=== PATIENT | male | born 1960 | race African-American/Black ===

== ENCOUNTER 2017-03-09 17:14 | Emergency (ER) | payer MEDICAID, OTHER ==
[~2017-03-09] VITALS: Ht 180.3 cm; Wt 74.0 kg
[~2017-03-09 17:14] MED LIST: DEPA500T3 PO; LISI-519 PO; RISP1 PO
[2017-03-09 17:21] VITALS: BP 117/69; PULSE 83; RESP 17; TEMP 97.7; O2SAT 99
--- NOTE | 2017-03-09 17:25 | PD ---
HPI Chief Complaint: ba Time Seen by Provider: 17:24 Travel History International Travel<30 days: No Contact w/Intl Traveler<30days: No Traveled to known affect area: No History of Present Illness HPI 57-year-old male with history of schizoaffective disorder, presents to the emergency department for evaluation under a Guillen act. Patient states he has been hearing voices. They're telling him to hurt others. He states that he needs help. Does report cocaine use. Denies any acute medical needs. Has no other symptoms to report. PFSH Past Medical History Hx Anticoagulant Therapy: No Arthritis: Yes Bipolar Disorder: Yes Depression: Yes Heart Rhythm Problems: No Cardiac Catheterization: Yes Cardiovascular Problems: Yes (MA in 03) Chemotherapy: No Chest Pain: Yes Congestive Heart Failure: No Cerebrovascular Accident: No Diabetes: No Diminished Hearing: No Gastrointestinal Disorders: Yes Heparin Induced Thrombocytopen: Yes Hypertension: Yes Musculoskeletal: Yes (knee replacement) Neurologic: Yes Psychiatric: Yes Respiratory: No Immunizations Current: Yes Schizophrenia: Yes Past Surgical History Abdominal Surgery: Yes (HERNIA REPAIR) Coronary Artery Bypass Graft: No Social History Alcohol Use: Yes Tobacco Use: Yes (1/2PPD) Substance Use: No (CRACK COCAINE) Allergies-Medications (Allergen,Severity, Reaction): Coded Allergies: No Known Allergies (Verified , 03/09/17) Reported Meds & Prescriptions Reported Meds & Active Scripts Active Risperdal (Risperidone) 1 Mg Tab 1 Mg PO Q12HR Depakote ER (Divalproex Sodium) 500 Mg Ana María 500 Mg PO BID Lisinopril 5 Mg Tab 5 Mg PO DAILY Reported Depakote ER (Divalproex Sodium) 500 Mg Ana María 1,000 Mg PO HS Review of Systems Except as stated in HPI: all other systems reviewed are Neg Physical Exam Narrative GENERAL: Well-nourished male patient, in no acute distress SKIN: Focused skin assessment warm/dry. HEAD: Atraumatic. Normocephalic. EYES: Pupils equal and round. No scleral icterus. No injection or drainage. ENT: No nasal bleeding or discharge. Mucous membranes pink and moist. NECK: Trachea midline. No JVD. CARDIOVASCULAR: Regular rate and rhythm. No murmur appreciated. RESPIRATORY: No accessory muscle use. Clear to auscultation. Breath sounds equal bilaterally. GASTROINTESTINAL: Abdomen soft, non-tender, nondistended. Hepatic and splenic margins not palpable. MUSCULOSKELETAL: No obvious deformities. No clubbing. No cyanosis. No edema. NEUROLOGICAL: Awake and alert. No obvious cranial nerve deficits. Motor grossly within normal limits. Normal speech. PSYCHIATRIC: Bizarre affect Data Data Last Documented VS Vital Signs Date Time Temp Pulse Resp B/P Pulse Ox O2 Delivery O2 Flow Rate FiO2 03/09/17 17:25 78 17 03/09/17 17:21 97.7 117/69 99 Orders Complete Blood Count With Diff (03/09/17 17:48) Basic Metabolic Panel (Bmp) (03/09/17 17:48) Psych Screen (03/09/17 17:48) Drug Screen, Random Urine (03/09/17 17:48) Alcohol (Ethanol) (03/09/17 17:48) Labs Laboratory Tests Test 03/09/17 17:55 White Blood Count 4.6 TH/MM3 Red Blood Count 4.49 MIL/MM3 Hemoglobin 13.5 GM/DL Hematocrit 41.1 % Mean Corpuscular Volume 91.6 FL Mean Corpuscular Hemoglobin 30.0 PG Mean Corpuscular Hemoglobin 32.8 % Concent Red Cell Distribution Width 13.9 % Platelet Count 199 TH/MM3 Mean Platelet Volume 7.5 FL Neutrophils (%) (Auto) 56.3 % Lymphocytes (%) (Auto) 35.9 % Monocytes (%) (Auto) 6.3 % Eosinophils (%) (Auto) 0.7 % Basophils (%) (Auto) 0.8 % Neutrophils # (Auto) 2.6 TH/MM3 Lymphocytes # (Auto) 1.7 TH/MM3 Monocytes # (Auto) 0.3 TH/MM3 Eosinophils # (Auto) 0.0 TH/MM3 Basophils # (Auto) 0.0 TH/MM3 CBC Comment DIFF FINAL Differential Comment Sodium Level 139 MEQ/L Potassium Level 4.4 MEQ/L Chloride Level 108 MEQ/L Carbon Dioxide Level 23.2 MEQ/L Anion Gap 8 MEQ/L Blood Urea Nitrogen 11 MG/DL Creatinine 1.02 MG/DL Estimat Glomerular Filtration 91 ML/MIN Rate Random Glucose 80 MG/DL Calcium Level 9.0 MG/DL Ethyl Alcohol Level 98 MG/DL MDM Medical Decision Making Medical Screen Exam Complete: Yes Emergency Medical Condition: Yes Medical Record Reviewed: Yes Differential Diagnosis Mood disorder versus personality disorder versus substance abuse versus adjustment reaction disorder Narrative Course 57-year-old male presents to the emergency department under Guillen act for psychiatric evaluation. Patient appears without distress. CBC and BMP are without acute concern. EtOH is 98. Patient is medically cleared to undergo psychiatric screening for further evaluation and disposition. Mental health screening discussed with the patient. Psychiatric screen ordered. Diagnosis Primary Impression: Schizoaffective disorder, bipolar type Additional Impression: Drug-induced mood disorder Condition: Stable Vera Edgar Mar 09, 2017 17:24
[2017-03-09 18:05] LABS: AUTOMATED NEUTROPHIL # 2.6 TH/MM3 (1.8-7.7); BASOPHIL % 0.8 % (0.0-2.0); EOSINOPHIL % 0.7 % (0.0-4.0); HEMATOCRIT 41.1 % (39.0-51.0); LYMPH % 35.9 % (9.0-44.0); LYMPHOCYTE # 1.7 TH/MM3 (1.0-4.8); MEAN CELL VOLUME 91.6 FL (80.0-100.0); MEAN CORPUSCULAR HGB CONC 32.8 % (32.0-36.0); MONO % 6.3 % (0.0-8.0); NEUT % 56.3 % (16.0-70.0); PLATELET COUNT 199 TH/MM3 (150-450); RED BLOOD COUNT 4.49 MIL/MM3 (4.50-5.90); RED CELL DISTRIBUTION WIDTH 13.9 % (11.6-17.2); WHITE BLOOD COUNT 4.6 TH/MM3 (4.0-11.0)
[2017-03-09 18:17] LABS: HEMO FLAGS DIFF FINAL
[2017-03-09 18:23] LABS: BICARBONATE 23.2 MEQ/L (21.0-32.0); POTASSIUM 4.4 MEQ/L (3.5-5.1)
[2017-03-09 21:37] VITALS: BP 175/75; PULSE 85; RESP 20; O2SAT 98
[2017-03-10 01:43] LABS: AMPHETAMINE, URINE NEG (NEG); BARBITURATES, URINE NEG (NEG); COCAINE, URINE POS (NEG)
[2017-03-10 02:06] VITALS: BP 123/60; PULSE 61; RESP 19; O2SAT 99
[2017-03-10 06:18] VITALS: BP 123/69; PULSE 65; RESP 18; O2SAT 98
--- NOTE | 2017-03-10 10:39 | PD ---
History of Present Illness Chief Complaint: Psychiatric Symptoms Time Seen by Provider: 10:30 Travel History International Travel<30 Days: No Contact w/Intl Traveler<30days: No Known affected area: No Legal Status Legal Status: Guillen Act Guillen Act Signed By: [employer] Guillen Act Comment: 2016 @ 1608 History of Present Illness: History of Present Illness 57-year-old male with history of schizoaffective disorder as well as substance use disorder who presents to the emergency department for psychiatric evaluation under a Guillen act initiated by OLIVIA. The report alleges that he reported hearing voices telling him to hurt people that were hurting him as well as telling him to smoke crack and drink alcoholic beverages. The patient requested to go to [facility]. He was monitored in main ed and in J pod. he presented no behavioral concerns and no suicidality. EMR reviewed. His last contact with [facility] psychiatry was in Aug 2016. he has had at least 8 life time hospitalizations. Current toxicology is positive for cocaine and cannabinoids. BAL 98. Patient is seen . He is alert and oriented, calm and cooperative. He states " I am good. No voices". He acknowledges that he was smoking crack and that the voices came after he smoked. At this time he is denying any suicidal or homicidal ideation, no hallucinations and no luciana. He is requesting to be discharged. He tells me that he was last seen in [facility] one year ago and that he stopped the medication because " they were not working that well". PFSH Past Medical History Hx Anticoagulant Therapy: No Arthritis: Yes Bipolar Disorder: Yes Depression: Yes Heart Rhythm Problems: No Cardiac Catheterization: Yes Cardiovascular Problems: Yes Chemotherapy: No Chest Pain: Yes Congestive Heart Failure: No Cerebrovascular Accident: No Diabetes: No Diminished Hearing: No Gastrointestinal Disorders: Yes Heparin Induced Thrombocytopen: Yes Hypertension: Yes Musculoskeletal: Yes (knee replacement) Neurologic: Yes Psychiatric: Yes Respiratory: No Immunizations Current: Yes Schizophrenia: Yes Tetanus Vaccination: < 5 Years Influenza Vaccination: Yes Past Surgical History Abdominal Surgery: Yes (HERNIA REPAIR) Coronary Artery Bypass Graft: No Psychiatric History Psychiatric History Hx Psychiatric Treatment: schizoaffective disorder, bipolar type History of Inpatient Treatment: Yes Guns or firearms in home: No Social History Single male. Lives with his mother. Unemployed. Hx Alcohol Use: Yes (beers) Hx Tobacco Use: Yes (1/2PPD) Hx Substance Use: No (CRACK COCAINE) Substance Use Type: Alcohol, Crack, Marijuana Other Substances Used: No use in about 1 week. Hx of Substance Use Treatment: No Family Psychiatric History None reported. Allergies-Medications (Allergen,Severity, Reaction): Coded Allergies: No Known Allergies (Verified , 03/09/17) Reported Meds & Prescriptions Reported Meds & Active Scripts Active Risperdal (Risperidone) 1 Mg Tab 1 Mg PO Q12HR Depakote ER (Divalproex Sodium) 500 Mg Ana María 500 Mg PO BID Lisinopril 5 Mg Tab 5 Mg PO DAILY Reported Depakote ER (Divalproex Sodium) 500 Mg Ana María 1,000 Mg PO HS Review of Systems Except as stated in HPI: all other systems reviewed are Neg Exam Alert: Yes [place]: Person Mood: Calm Affect: Appropriate Speech: Clear, Logical Eye Contact: Normal Memory Intact: Comment (no impairmetn) Hallucinations: Other (denies any at present) Delusions: No Suicidal: Ideation (negative) Homicidal: Ideation (neagtive) Insight/Judgement Poor. Not impaired. MDM Medical Decision Making Medical Record Reviewed: Yes Assessment/Plan 57 year old male with history of schizoaffective disorder as well as substance use disorder who called the police to report increase in hallucinations telling him to hurt people. This in context of acute intoxication w crack cocaine, cannabinoids as well as alcohol. At [facility] time he is clinically sober and denies any hallucinations. No suicidal ideation. No homicidal ideation. He is requesting discharge and clearly does not meet criteria for BA. He is advised to follow up with [facility] as outpatient as well to abstain from substances. Orders Complete Blood Count With Diff (03/09/17 17:48) Basic Metabolic Panel (Bmp) (03/09/17 17:48) Psych Screen (03/09/17 17:48) Drug Screen, Random Urine (03/09/17 17:48) Alcohol (Ethanol) (03/09/17 17:48) Diet Regular Basic (03/10/17 Breakfast) Diet Regular Basic (03/10/17 Lunch) Results Vital Signs Date Time Temp Pulse Resp B/P Pulse Ox O2 Delivery O2 Flow Rate FiO2 03/10/17 06:18 65 18 123/69 98 Room Air 03/10/17 02:06 61 19 123/60 99 Room Air 03/09/17 21:37 85 20 175/75 98 Room Air 03/09/17 17:25 78 17 03/09/17 17:21 97.7 83 17 117/69 99 Laboratory Tests Test 03/09/17 03/10/17 17:55 01:20 White Blood Count 4.6 Red Blood Count 4.49 Hemoglobin 13.5 Hematocrit 41.1 Mean Corpuscular Volume 91.6 Mean Corpuscular Hemoglobin 30.0 Mean Corpuscular Hemoglobin 32.8 Concent Red Cell Distribution Width 13.9 Platelet Count 199 Mean Platelet Volume 7.5 Neutrophils (%) (Auto) 56.3 Lymphocytes (%) (Auto) 35.9 Monocytes (%) (Auto) 6.3 Eosinophils (%) (Auto) 0.7 Basophils (%) (Auto) 0.8 Neutrophils # (Auto) 2.6 Lymphocytes # (Auto) 1.7 Monocytes # (Auto) 0.3 Eosinophils # (Auto) 0.0 Basophils # (Auto) 0.0 CBC Comment DIFF FINAL Differential Comment Sodium Level 139 Potassium Level 4.4 Chloride Level 108 Carbon Dioxide Level 23.2 Anion Gap 8 Blood Urea Nitrogen 11 Creatinine 1.02 Estimat Glomerular Filtration 91 Rate Random Glucose 80 Calcium Level 9.0 Ethyl Alcohol Level 98 Urine Opiates Screen NEG Urine Barbiturates Screen NEG Urine Amphetamines Screen NEG Urine Benzodiazepines Screen NEG Urine Cocaine Screen POS Urine Cannabinoids Screen POS Diagnosis Primary Impression: Drug-induced psychotic disorder with hallucinations Additional Impression: Schizoaffective disorder, bipolar type Psychiatrically Cleared: Yes Disposition: 01 DISCHARGE HOME Condition: Stable Problem Qualifiers Yuko Heller [facility] Mar 10, 2017 10:39
== END 2017-03-10 10:54 | disposition home or self-care (01) ==
LOC: NEPE 17:14 → NEPJ 03-10 10:54
DX: F19.959 Other psychoactive substance use, unspecified with psychoactive substance-induced psychotic disorder, unspecified (principal); R44.0 Auditory hallucinations; F25.0 Schizoaffective disorder, bipolar type; F14.14 Cocaine abuse with cocaine-induced mood disorder; F11.14 Opioid abuse with opioid-induced mood disorder; I10 Essential (primary) hypertension; Z96.659 Presence of unspecified artificial knee joint; F17.210 Nicotine dependence, cigarettes, uncomplicated; F19.94 Other psychoactive substance use, unspecified with psychoactive substance-induced mood disorder
CPT/HCPCS: 80048; 80307; 85025; 99285

== ENCOUNTER 2017-04-22 02:17 | Emergency (ER) | payer MEDICAID, OTHER ==
[~2017-04-22] VITALS: Ht 180.3 cm; Wt 78.0 kg
[2017-04-22 02:27] VITALS: BP 105/59; PULSE 100; RESP 16; TEMP 98.9; O2SAT 96
--- NOTE | 2017-04-22 02:33 | PD ---
HPI Chief Complaint: Psychiatric Symptoms Time Seen by Provider: 02:30 Travel History International Travel<30 days: No Contact w/Intl Traveler<30days: No Traveled to known affect area: No History of Present Illness HPI Patient comes emergency requesting psychiatric evaluation. Patient states he's been out of his Risperdal for approximately 2 weeks and he is hearing voices. Patient states his when he is on his medication he feels fine however he has not been able get a refill on it. Patient denies any homicidal or suicidal ideations. Patient states he is uncertain of all medications he is on however his record show he supposed be on Depakote. When asked patient about this he is uncertain if he is taking it or not. Patient states when he gets feeling this way he just gets generalized pain all over. Denies any chest pain, shortness breath, fevers, abdominal pain, nausea and vomiting, abdominal, loss change in bowel or bladder, or headaches. Patient denies anything making it better or worse. PFSH Past Medical History Hx Anticoagulant Therapy: No Arthritis: Yes Bipolar Disorder: Yes Depression: Yes Heart Rhythm Problems: No Cardiac Catheterization: Yes Cardiovascular Problems: Yes Chemotherapy: No Chest Pain: Yes Congestive Heart Failure: No Cerebrovascular Accident: No Diabetes: No Diminished Hearing: No Gastrointestinal Disorders: Yes Heparin Induced Thrombocytopen: Yes Hypertension: Yes Musculoskeletal: Yes (knee replacement) Neurologic: Yes Psychiatric: Yes Respiratory: No Immunizations Current: Yes Schizophrenia: Yes Past Surgical History Abdominal Surgery: Yes (HERNIA REPAIR) Coronary Artery Bypass Graft: No Social History Alcohol Use: Yes (beers) Tobacco Use: Yes (1/2PPD) Substance Use: No (CRACK COCAINE) Allergies-Medications (Allergen,Severity, Reaction): Coded Allergies: No Known Allergies (Verified , 04/22/17) Reported Meds & Prescriptions Reported Meds & Active Scripts Active Risperdal (Risperidone) 1 Mg Tab 1 Mg PO Q12HR Depakote ER (Divalproex Sodium) 500 Mg Ana María 500 Mg PO BID Lisinopril 5 Mg Tab 5 Mg PO DAILY Reported Depakote ER (Divalproex Sodium) 500 Mg Ana María 1,000 Mg PO HS Review of Systems Except as stated in HPI: all other systems reviewed are Neg Physical Exam Narrative GENERAL: Well-developed, well nourished, in no acute distress, and non-ill appearing. SKIN: Focused skin assessment warm and dry. HEAD: Atraumatic. Normocephalic. EYES: Pupils equal and round. EOMI. No scleral icterus. No injection or drainage. ENT: No nasal bleeding or discharge. Mucous membranes pink and moist. NECK: Trachea midline. Supple. No nuclear rigidity. CARDIOVASCULAR: Regular rate and rhythm. No murmur appreciated. RESPIRATORY: No accessory muscle use. No respiratory distress. Clear to auscultation. Breath sounds equal bilaterally. MUSCULOSKELETAL: No obvious deformities. No clubbing. No cyanosis. No edema. Full range of motion. NEUROLOGICAL: Awake and alert. No obvious cranial nerve deficits. Motor grossly within normal limits. Normal speech. PSYCHIATRIC: Appropriate mood and affect; insight and judgment normal. Data Data Last Documented VS Vital Signs Date Time Temp Pulse Resp B/P Pulse Ox O2 Delivery O2 Flow Rate FiO2 04/22/17 02:27 98.9 100 16 105/59 96 Orders Complete Blood Count With Diff (04/22/17 02:31) Comprehensive Metabolic Panel (04/22/17 02:31) Valproic Acid (Depakene) (04/22/17 02:31) Psych Screen (04/22/17 02:31) Drug Screen, Random Urine (04/22/17 02:31) Alcohol (Ethanol) (04/22/17 02:31) Labs Laboratory Tests Test 04/22/17 02:37 White Blood Count 5.1 TH/MM3 Red Blood Count 4.14 MIL/MM3 Hemoglobin 13.0 GM/DL Hematocrit 37.6 % Mean Corpuscular Volume 90.9 FL Mean Corpuscular Hemoglobin 31.3 PG Mean Corpuscular Hemoglobin 34.4 % Concent Red Cell Distribution Width 13.6 % Platelet Count 200 TH/MM3 Mean Platelet Volume 7.3 FL Neutrophils (%) (Auto) 67.3 % Lymphocytes (%) (Auto) 23.1 % Monocytes (%) (Auto) 8.2 % Eosinophils (%) (Auto) 0.6 % Basophils (%) (Auto) 0.8 % Neutrophils # (Auto) 3.4 TH/MM3 Lymphocytes # (Auto) 1.2 TH/MM3 Monocytes # (Auto) 0.4 TH/MM3 Eosinophils # (Auto) 0.0 TH/MM3 Basophils # (Auto) 0.0 TH/MM3 CBC Comment DIFF FINAL Differential Comment Sodium Level 142 MEQ/L Potassium Level 4.1 MEQ/L Chloride Level 109 MEQ/L Carbon Dioxide Level 19.8 MEQ/L Anion Gap 13 MEQ/L Blood Urea Nitrogen 18 MG/DL Creatinine 1.50 MG/DL Estimat Glomerular Filtration 58 ML/MIN Rate Random Glucose 59 MG/DL Calcium Level 8.3 MG/DL Total Bilirubin 0.7 MG/DL Aspartate Amino Transf 38 U/L (AST/SGOT) Alanine Aminotransferase 38 U/L (ALT/SGPT) Alkaline Phosphatase 51 U/L Total Protein 7.1 GM/DL Albumin 3.7 GM/DL Valproic Acid (Depakene) Level 4 MCG/ML Ethyl Alcohol Level 127 MG/DL [facility] Medical Decision Making Medical Screen Exam Complete: Yes Emergency Medical Condition: Yes Differential Diagnosis Homicidal, suicidal, schizoaffective, alcohol intoxication, substance abuse, other Narrative Course Patient was seen and examined. Labs were obtained and reviewed with the exception of urine drug screen has not been collected yet. Patient medically cleared for further treatment and evaluation by psych. Final disposition per psych. Diagnosis Primary Impression: Alcohol intoxication Qualified Code: F10.920 - Alcohol intoxication, uncomplicated Additional Impression: Medical clearance for psychiatric admission Condition: Stable Dashawn Ruiz Apr 22, 2017 02:33
[2017-04-22 03:04] LABS: AUTOMATED NEUTROPHIL # 3.4 TH/MM3 (1.8-7.7); BASOPHIL % 0.8 % (0.0-2.0); EOSINOPHIL % 0.6 % (0.0-4.0); HEMATOCRIT 37.6 % (39.0-51.0); HEMO FLAGS DIFF FINAL; LYMPH % 23.1 % (9.0-44.0); LYMPHOCYTE # 1.2 TH/MM3 (1.0-4.8); MEAN CELL VOLUME 90.9 FL (80.0-100.0); MEAN CORPUSCULAR HEMOGLOBIN 31.3 PG (27.0-34.0); MEAN CORPUSCULAR HGB CONC 34.4 % (32.0-36.0); MONO % 8.2 % (0.0-8.0); NEUT % 67.3 % (16.0-70.0); PLATELET COUNT 200 TH/MM3 (150-450); RED BLOOD COUNT 4.14 MIL/MM3 (4.50-5.90); RED CELL DISTRIBUTION WIDTH 13.6 % (11.6-17.2); WHITE BLOOD COUNT 5.1 TH/MM3 (4.0-11.0)
[2017-04-22 03:23] LABS: ANION GAP 13 MEQ/L (5-15); AST (GOT) 38 U/L (15-37); BICARBONATE 19.8 MEQ/L (21.0-32.0); BLOOD UREA NITROGEN 18 MG/DL (7-18); CHLORIDE 109 MEQ/L (98-107); GLOMERULAR FILTRATION RATE 58 ML/MIN (>89); POTASSIUM 4.1 MEQ/L (3.5-5.1); SODIUM (NA) 142 MEQ/L (136-145)
[2017-04-22 03:26] LABS: ALKALINE PHOSPHATASE 51 U/L (45-117); ALT (GPT) 38 U/L (12-78); TOTAL BILIRUBIN ADULT 0.7 MG/DL (0.2-1.0)
[2017-04-22 07:50] VITALS: BP_SYST 11; BP_SYST 111; BP_DIAS 75; PULSE 79; RESP 20; O2SAT 99
--- NOTE | 2017-04-22 16:50 | PD ---
History of Present Illness Chief Complaint: Psychiatric Symptoms Time Seen by Provider: 16:30 Travel History International Travel<30 Days: No Contact w/Intl Traveler<30days: No Known affected area: No Legal Status Legal Status: Voluntary History of Present Illness: History of Present Illness HPI Patient is a 57 year old male with history of schizoaffective disorder as well as substance use disorder who presents to the Ed on a voluntary basis emergency requesting psychiatric evaluation. Patient reports that he has been out of his psychiatric medications " for a while" and that he began to hear voices. he then called the police to request that they bring him here to [facility]. he tells me that he stopped the medication because he was feeling well. He also uses crack which intensify the hallucinations. His BAl on presentation to ED was 127. No toxicology report is available but he admits to using crack cocaine EMR is reviewed. His last ed visit was in march 2017 in context of substance use as well as medication noncompliance. He was last psychiatrically hospitalized in 2016. The patient was seen with nurse Jeana. He is clinically sober. He is calm and cooperative. No evidence of TD. He denies hearing voices at present . Denies any suicidal or homicidal ideation. Denies any significant depressive or anxious symptom. he requests a prescription for Risperdal as he tells me that it helps him and he does not have any side effects from it. PFSH Past Medical History Medical History: Denies Significant Hx Hx Anticoagulant Therapy: No Arthritis: Yes Bipolar Disorder: Yes Depression: Yes Heart Rhythm Problems: No Cardiac Catheterization: Yes Cardiovascular Problems: Yes Chemotherapy: No Chest Pain: Yes Congestive Heart Failure: No Cerebrovascular Accident: No Diabetes: No Diminished Hearing: No Gastrointestinal Disorders: Yes Heparin Induced Thrombocytopen: Yes Hypertension: Yes Musculoskeletal: Yes (knee replacement) Neurologic: Yes Psychiatric: Yes Respiratory: No Immunizations Current: Yes Schizophrenia: Yes Past Surgical History Abdominal Surgery: Yes (HERNIA REPAIR) Coronary Artery Bypass Graft: No Psychiatric History Psychiatric History Hx Psychiatric Treatment: schizoaffective disorder, bipolar type At least 8 lifetime hospitalizations History of Inpatient Treatment: Yes Guns or firearms in home: No Social History Single male. Lives with family. On disability Hx Alcohol Use: Yes (beers) Hx Tobacco Use: Yes (1/2PPD) Hx Substance Use: Yes (CRACK COCAINE) Substance Use Type: Alcohol, Crack, Marijuana Other Substances Used: No use in about 1 week. Hx of Substance Use Treatment: No Family Psychiatric History negative Allergies-Medications (Allergen,Severity, Reaction): Coded Allergies: No Known Allergies (Verified , 04/22/17) Reported Meds & Prescriptions Reported Meds & Active Scripts Active Risperdal (Risperidone) 1 Mg Tab 1 Mg PO Q12HR Depakote ER (Divalproex Sodium) 500 Mg Ana María 500 Mg PO BID Lisinopril 5 Mg Tab 5 Mg PO DAILY Reported Depakote ER (Divalproex Sodium) 500 Mg Ana María 1,000 Mg PO HS Review of Systems Except as stated in HPI: all other systems reviewed are Neg Exam Alert: Yes [place]: Person (ox4) Mood: Calm Affect: Appropriate Speech: Clear, Logical Eye Contact: Normal Memory Intact: Comment (not impaired) Hallucinations: Other (hedeies at present) Delusions: No Suicidal: Ideation (negative) Homicidal: Ideation (negative) Insight/Judgement poor. not impaired. MDM Medical Decision Making Medical Record Reviewed: Yes Assessment/Plan 57 year old male with history of schizoaffective disorder as well as substance use disorder who presents on a voluntary basis requesting a medication refill. He has been using cocaine as well as alcohol. He denies daily use. patietn at this time is denying any hallucinations and does not meet criteria for BA. I will provide RX for Risperdal. Counseled on use of substances. Lift BA. Discharge to home with follow up with [facility]. Orders Complete Blood Count With Diff (04/22/17 02:31) Comprehensive Metabolic Panel (04/22/17 02:31) Valproic Acid (Depakene) (04/22/17 02:31) Psych Screen (04/22/17 02:31) Drug Screen, Random Urine (04/22/17 02:31) Alcohol (Ethanol) (04/22/17 02:31) Diet Regular Basic (04/22/17 Breakfast) Diet Regular Basic (04/22/17 Dinner) Results Vital Signs Date Time Temp Pulse Resp B/P Pulse Ox O2 Delivery O2 Flow Rate FiO2 04/22/17 07:50 79 20 111/75 99 Room Air 04/22/17 02:27 98.9 100 16 105/59 96 Laboratory Tests Test 04/22/17 02:37 White Blood Count 5.1 Red Blood Count 4.14 Hemoglobin 13.0 Hematocrit 37.6 Mean Corpuscular Volume 90.9 Mean Corpuscular Hemoglobin 31.3 Mean Corpuscular Hemoglobin 34.4 Concent Red Cell Distribution Width 13.6 Platelet Count 200 Mean Platelet Volume 7.3 Neutrophils (%) (Auto) 67.3 Lymphocytes (%) (Auto) 23.1 Monocytes (%) (Auto) 8.2 Eosinophils (%) (Auto) 0.6 Basophils (%) (Auto) 0.8 Neutrophils # (Auto) 3.4 Lymphocytes # (Auto) 1.2 Monocytes # (Auto) 0.4 Eosinophils # (Auto) 0.0 Basophils # (Auto) 0.0 CBC Comment DIFF FINAL Differential Comment Sodium Level 142 Potassium Level 4.1 Chloride Level 109 Carbon Dioxide Level 19.8 Anion Gap 13 Blood Urea Nitrogen 18 Creatinine 1.50 Estimat Glomerular Filtration 58 Rate Random Glucose 59 Calcium Level 8.3 Total Bilirubin 0.7 Aspartate Amino Transf 38 (AST/SGOT) Alanine Aminotransferase 38 (ALT/SGPT) Alkaline Phosphatase 51 Total Protein 7.1 Albumin 3.7 Valproic Acid (Depakene) Level 4 Ethyl Alcohol Level 127 Diagnosis Primary Impression: Alcohol intoxication Additional Impression: Schizoaffective disorder Psychiatrically Cleared: Yes Med/ Other Pt Specific Info: Prescription(s) given Prescriptions Risperidone 2 Mg Tab2 Mg PO HS #30 TAB Ref 0 Prov:Yuko Heller 04/22/17 Disposition: 01 DISCHARGE HOME Condition: Stable Problem Qualifiers Primary Impression: Alcohol intoxication Qualified Code: F10.920 - Alcohol intoxication, uncomplicated Additional Impression: Schizoaffective disorder Qualified Code: F25.0 - Schizoaffective disorder, bipolar type Yuko Heller Apr 22, 2017 16:50
[2017-04-22] MEDS ORDERED: RISP2TAB2 PO (16:52)
== END 2017-04-22 22:06 | disposition home or self-care (01) ==
LOC: NEPD 02:17 → NEPJ 22:06
DX: F10.920 Alcohol use, unspecified with intoxication, uncomplicated (principal); F25.0 Schizoaffective disorder, bipolar type; Y90.6 Blood alcohol level of 120-199 mg/100 ml; Z79.899 Other long term (current) drug therapy
CPT/HCPCS: 80053; 80164; 80307; 85025; 99284

== ENCOUNTER 2017-05-10 03:07 | Emergency (ER) | payer MEDICAID, OTHER ==
[~2017-05-10] VITALS: Ht 175.3 cm; Wt 80.0 kg
[~2017-05-10 03:07] MED LIST changes: +RISP2TAB2 PO
[2017-05-10 03:16] VITALS: BP 128/73; PULSE 102; RESP 16; TEMP 98.8; O2SAT 95
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
[2017-05-10 04:42] VITALS: BP 120/58; PULSE 84; RESP 20; TEMP 97.7; O2SAT 98
[2017-05-10 06:06] VITALS: BP 109/59; PULSE 83; RESP 20; TEMP 99.3; O2SAT 98
[2017-05-10 10:06] VITALS: BP 115/59; PULSE 68; RESP 18; O2SAT 100
[2017-05-10 13:26] LABS: AMPHETAMINE, URINE NEG (NEG); BARBITURATES, URINE NEG (NEG); COCAINE, URINE POS (NEG)
[2017-05-10 14:19] VITALS: BP 131/61; PULSE 75; RESP 18; O2SAT 97
--- NOTE | 2017-05-10 15:18 | PD ---
History of Present Illness Chief Complaint: Psychiatric Symptoms Time Seen by Provider: 15:00 Travel History International Travel<30 Days: No Contact w/Intl Traveler<30days: No Known affected area: No Legal Status Legal Status: Voluntary History of Present Illness: 57-year-old male with admitted multiyear history of drug and alcohol abuse. Furthermore admits to smoking crack cocaine recently. Has been treated at [facility] in the past. Describes hearing voices and states the Risperdal he has taken in the past is not working. However, at this time he is not expressing any suicidal or homicidal ideation, plan or intent. He demonstrates no significant clinical evidence of response to internal stimuli. He is asking for taxi transportation home. He does not wish to go to [facility] at this time for drug treatment. He is forward thinking and does not appear to this physician to be suffering from schizophrenia, schizoaffective disorder, bipolar disorder or any other major mental illness. On the other hand, he does have obvious drug problems and is being referred to [facility] for follow up. He knows and acknowledges what this entails. PFSH Past Medical History Hx Anticoagulant Therapy: No Arthritis: Yes Bipolar Disorder: Yes Depression: Yes Heart Rhythm Problems: No Cardiac Catheterization: Yes Cardiovascular Problems: Yes Chemotherapy: No Chest Pain: Yes Congestive Heart Failure: No Cerebrovascular Accident: No Diabetes: No Diminished Hearing: No Gastrointestinal Disorders: Yes Heparin Induced Thrombocytopen: Yes Hypertension: Yes Musculoskeletal: Yes (knee replacement) Neurologic: Yes Psychiatric: Yes Respiratory: No Immunizations Current: Yes Schizophrenia: Yes Tetanus Vaccination: < 5 Years Influenza Vaccination: Yes Past Surgical History Abdominal Surgery: Yes (HERNIA REPAIR) Coronary Artery Bypass Graft: No Psychiatric History Psychiatric History Hx Psychiatric Treatment: schizoaffective disorder, bipolar typeAt least 8 lifetime hospitalizations. This physician does not currently see any significant objective clinical evidence of schizoaffective disorder or other major mental illness. Conversely, there is recent use of crack cocaine. History of Inpatient Treatment: Yes Guns or firearms in home: No Social History Hx Alcohol Use: Yes (beers) Hx Tobacco Use: Yes (1/2PPD) Hx Substance Use: Yes (CRACK COCAINE) Substance Use Type: Alcohol, Crack, Marijuana Other Substances Used: No use in about 1 week. Hx of Substance Use Treatment: No Allergies-Medications (Allergen,Severity, Reaction): Coded Allergies: No Known Allergies (Verified , 05/10/17) Reported Meds & Prescriptions Reported Meds & Active Scripts Active Risperdal (Risperidone) 1 Mg Tab 1 Mg PO Q12HR Lisinopril 5 Mg Tab 5 Mg PO DAILY Review of Systems Except as stated in HPI: all other systems reviewed are Neg Exam Alert: Yes [place]: Person, Place, Date, Situation Mood: Calm Affect: Appropriate Speech: Clear Eye Contact: Normal Memory Intact: Immediate, Recent, Remote Insight/Judgement Adequate MDM Medical Decision Making Medical Record Reviewed: Yes Assessment/Plan 57-year-old male with a significant history of drug abuse, presenting voluntarily after smoking crack cocaine. When this physician explained the patient is being referred to [facility] for treatment of his drug abuse, he wants transportation home. When he discovers that we cannot provide transportation home, he initially stated he had no one to call for transportation but then asked to use the phone to call his mother. This information is being provided because the patient showed clear, logical and straight forward thinking as opposed to any evidence of responding to internal stimuli. He is being discharged with a referral to [facility] addresses paramount problem appears to be drug abuse. Orders Drug Screen, Random Urine (05/10/17 03:34) Alcohol (Ethanol) (05/10/17 03:34) Psych Screen (05/10/17 03:34) Diet Regular Basic (05/10/17 Breakfast) Diet Regular Basic (05/10/17 Lunch) Diet Regular Basic (05/10/17 Dinner) Results Vital Signs Date Time Temp Pulse Resp B/P Pulse Ox O2 Delivery O2 Flow Rate FiO2 05/10/17 14:19 75 18 131/61 97 Room Air 05/10/17 10:06 68 18 115/59 100 Room Air 05/10/17 06:06 99.3 83 20 109/59 98 05/10/17 04:42 97.7 84 20 120/58 98 05/10/17 03:16 98.8 102 16 128/73 95 Laboratory Tests Test 05/10/17 05/10/17 03:40 12:45 Ethyl Alcohol Level 72 Urine Opiates Screen NEG Urine Barbiturates Screen NEG Urine Amphetamines Screen NEG Urine Benzodiazepines Screen NEG Urine Cocaine Screen POS Urine Cannabinoids Screen POS Diagnosis Primary Impression: Adjustment disorder with mixed disturbance of emotions and conduct Additional Impression: Cocaine abuse Problem Qualifiers Magen Colón MD May 10, 2017 15:18
[2017-05-10 15:59] VITALS: BP 131/61; TEMP 97.3
== END 2017-05-10 16:02 | disposition home or self-care (01) ==
LOC: NEPD 03:07 → NEPJ 16:02
DX: F43.20 Adjustment disorder, unspecified (principal); F25.9 Schizoaffective disorder, unspecified; F14.10 Cocaine abuse, uncomplicated; F10.10 Alcohol abuse, uncomplicated; F17.290 Nicotine dependence, other tobacco product, uncomplicated
CPT/HCPCS: 80307; 99284

== ENCOUNTER 2017-06-05 01:16 | Emergency (ER) | payer MEDICAID ==
[~2017-06-05 01:16] MED LIST changes: -DEPA500T3 PO; -RISP2TAB2 PO
[2017-06-05 01:17] VITALS: BP 125/76; PULSE 122; RESP 16; TEMP 98; O2SAT 96
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
== END 2017-06-05 04:35 | disposition home or self-care (01) ==
LOC: NEPD 01:16
DX: S00.83XA Contusion of other part of head, initial encounter (principal); Y04.2XXA Assault by strike against or bumped into by another person, initial encounter
CPT/HCPCS: 70486; 99284

== ENCOUNTER 2017-06-25 00:44 | Emergency (ER) | payer MEDICAID, OTHER ==
[~2017-06-25] VITALS: Ht 180.3 cm; Wt 70.0 kg
--- NOTE | 2017-06-25 01:00 | PD ---
HPI Chief Complaint: BA Time Seen by Provider: 00:50 Travel History International Travel<30 days: No Contact w/Intl Traveler<30days: No Traveled to known affect area: No History of Present Illness HPI 46-year-old male with history of bipolar disorder and polysubstance abuse, presents to emergency department under Guillen act for psychiatric evaluation. Patient states that he has not been able to get a hold of his girlfriend and if he cannot get a hold of her, he is going to kill himself. He has no active plan. Reports cocaine, heroin, and alcohol use. Denies any acute medical needs at this time. PFSH Past Medical History Hx Anticoagulant Therapy: No Arthritis: Yes Bipolar Disorder: Yes Depression: Yes Heart Rhythm Problems: No Cardiac Catheterization: Yes Cardiovascular Problems: Yes Chemotherapy: No Chest Pain: Yes Congestive Heart Failure: No Cerebrovascular Accident: No Diabetes: No Diminished Hearing: No Gastrointestinal Disorders: Yes Heparin Induced Thrombocytopen: Yes Hypertension: Yes Musculoskeletal: Yes (knee replacement) Neurologic: Yes Psychiatric: Yes Respiratory: No Immunizations Current: Yes Schizophrenia: Yes Past Surgical History Abdominal Surgery: Yes (HERNIA REPAIR) Coronary Artery Bypass Graft: No Social History Alcohol Use: Yes (beers) Tobacco Use: Yes (1/2PPD) Substance Use: No (HX CRACK COCAINE) Allergies-Medications (Allergen,Severity, Reaction): Coded Allergies: No Known Allergies (Verified , 06/25/17) Reported Meds & Prescriptions Reported Meds & Active Scripts Active Risperdal (Risperidone) 1 Mg Tab 1 Mg PO Q12HR Review of Systems Except as stated in HPI: all other systems reviewed are Neg Physical Exam Narrative GENERAL: Well-nourished male patient, in no acute distress. SKIN: Focused skin assessment warm/dry. HEAD: Atraumatic. Normocephalic. EYES: Pupils equal and round. No scleral icterus. No injection or drainage. ENT: No nasal bleeding or discharge. Mucous membranes pink and moist. NECK: Trachea midline. No JVD. CARDIOVASCULAR: Regular rate and rhythm. No murmur appreciated. RESPIRATORY: No accessory muscle use. Clear to auscultation. Breath sounds equal bilaterally. GASTROINTESTINAL: Abdomen soft, non-tender, nondistended. Hepatic and splenic margins not palpable. MUSCULOSKELETAL: No obvious deformities. No clubbing. No cyanosis. No edema. NEUROLOGICAL: Awake and alert. No obvious cranial nerve deficits. Motor grossly within normal limits. Normal speech. Data Data Last Documented VS Vital Signs Date Time Temp Pulse Resp B/P (MAP) Pulse Ox O2 Delivery O2 Flow Rate FiO2 06/25/17 01:01 98.3 99 16 129/72 (91) 98 Orders Orders Complete Blood Count With Diff (06/25/17 00:50) Basic Metabolic Panel (Bmp) (06/25/17 00:50) Psych Screen (06/25/17 00:50) Drug Screen, Random Urine (06/25/17 00:50) Alcohol (Ethanol) (06/25/17 00:50) Labs Laboratory Tests Test 06/25/17 00:55 06/25/17 01:05 White Blood Count 8.3 TH/MM3 Red Blood Count 4.15 MIL/MM3 Hemoglobin 13.1 GM/DL Hematocrit 38.1 % Mean Corpuscular Volume 91.9 FL Mean Corpuscular Hemoglobin 31.5 PG Mean Corpuscular Hemoglobin Concent 34.3 % Red Cell Distribution Width 13.6 % Platelet Count 271 TH/MM3 Mean Platelet Volume 7.2 FL Neutrophils (%) (Auto) 70.3 % Lymphocytes (%) (Auto) 20.9 % Monocytes (%) (Auto) 7.8 % Eosinophils (%) (Auto) 0.5 % Basophils (%) (Auto) 0.5 % Neutrophils # (Auto) 5.9 TH/MM3 Lymphocytes # (Auto) 1.7 TH/MM3 Monocytes # (Auto) 0.6 TH/MM3 Eosinophils # (Auto) 0.0 TH/MM3 Basophils # (Auto) 0.0 TH/MM3 CBC Comment DIFF FINAL Differential Comment Blood Urea Nitrogen 16 MG/DL Creatinine 1.37 MG/DL Random Glucose 69 MG/DL Calcium Level 8.6 MG/DL Sodium Level 143 MEQ/L Potassium Level 4.5 MEQ/L Chloride Level 111 MEQ/L Carbon Dioxide Level 25.2 MEQ/L Anion Gap 7 MEQ/L Estimat Glomerular Filtration Rate 64 ML/MIN Ethyl Alcohol Level 17 MG/DL Urine Opiates Screen NEG Urine Barbiturates Screen NEG Urine Amphetamines Screen POS Urine Benzodiazepines Screen NEG Urine Cocaine Screen POS Urine Cannabinoids Screen POS MDM Medical Decision Making Medical Screen Exam Complete: Yes Emergency Medical Condition: Yes Medical Record Reviewed: Yes Differential Diagnosis Mood disorder versus personality disorder versus adjustment reaction disorder Narrative Course 57-year-old male presents to emergency department under Guillen act for psychiatric evaluation. Patient appears without distress. His vital signs are stable. After being in the emergency department, the patient's girlfriend has been contacted and he has gotten to speak with her. Patient states he feels much better and no longer wants to commit suicide. Laboratory Tests Test 06/25/17 00:55 06/25/17 01:05 White Blood Count 8.3 TH/MM3 Red Blood Count 4.15 MIL/MM3 Hemoglobin 13.1 GM/DL Hematocrit 38.1 % Mean Corpuscular Volume 91.9 FL Mean Corpuscular Hemoglobin 31.5 PG Mean Corpuscular Hemoglobin Concent 34.3 % Red Cell Distribution Width 13.6 % Platelet Count 271 TH/MM3 Mean Platelet Volume 7.2 FL Neutrophils (%) (Auto) 70.3 % Lymphocytes (%) (Auto) 20.9 % Monocytes (%) (Auto) 7.8 % Eosinophils (%) (Auto) 0.5 % Basophils (%) (Auto) 0.5 % Neutrophils # (Auto) 5.9 TH/MM3 Lymphocytes # (Auto) 1.7 TH/MM3 Monocytes # (Auto) 0.6 TH/MM3 Eosinophils # (Auto) 0.0 TH/MM3 Basophils # (Auto) 0.0 TH/MM3 CBC Comment DIFF FINAL Differential Comment Blood Urea Nitrogen 16 MG/DL Creatinine 1.37 MG/DL Random Glucose 69 MG/DL Calcium Level 8.6 MG/DL Sodium Level 143 MEQ/L Potassium Level 4.5 MEQ/L Chloride Level 111 MEQ/L Carbon Dioxide Level 25.2 MEQ/L Anion Gap 7 MEQ/L Estimat Glomerular Filtration Rate 64 ML/MIN Ethyl Alcohol Level 17 MG/DL Urine Opiates Screen NEG Urine Barbiturates Screen NEG Urine Amphetamines Screen POS Urine Benzodiazepines Screen NEG Urine Cocaine Screen POS Urine Cannabinoids Screen POS Lab work is without acute concern. Toxicology is positive for amphetamines, cocaine, cannabinoids. EtOH is 17. Patient is medically cleared to undergo psychiatric screening for further evaluation and disposition. Mental health screening discussed with the patient. Psychiatric screen ordered. Diagnosis Primary Impression: Adjustment disorder with mixed disturbance of emotions and conduct Additional Impressions: Schizoaffective disorder, bipolar type Substance abuse Condition: Stable Vera Edgar Jun 25, 2017 01:00
[2017-06-25 01:01] VITALS: BP 129/72; PULSE 99; RESP 16; TEMP 98.3; O2SAT 98
[2017-06-25 01:22] LABS: BICARBONATE 25.2 MEQ/L (21.0-32.0); POTASSIUM 4.5 MEQ/L (3.5-5.1)
[2017-06-25 01:23] LABS: AUTOMATED NEUTROPHIL # 5.9 TH/MM3 (1.8-7.7); BASOPHIL % 0.5 % (0.0-2.0); EOSINOPHIL % 0.5 % (0.0-4.0); HEMATOCRIT 38.1 % (39.0-51.0); HEMO FLAGS DIFF FINAL; LYMPH % 20.9 % (9.0-44.0); LYMPHOCYTE # 1.7 TH/MM3 (1.0-4.8); MEAN CELL VOLUME 91.9 FL (80.0-100.0); MEAN CORPUSCULAR HEMOGLOBIN 31.5 PG (27.0-34.0); MEAN CORPUSCULAR HGB CONC 34.3 % (32.0-36.0); MONO % 7.8 % (0.0-8.0); NEUT % 70.3 % (16.0-70.0); PLATELET COUNT 271 TH/MM3 (150-450); RED BLOOD COUNT 4.15 MIL/MM3 (4.50-5.90); RED CELL DISTRIBUTION WIDTH 13.6 % (11.6-17.2); WHITE BLOOD COUNT 8.3 TH/MM3 (4.0-11.0)
[2017-06-25 18:00] VITALS: BP 124/81; PULSE 70; RESP 18; O2SAT 100
[2017-06-25 22:07] VITALS: BP 116/71; PULSE 61; RESP 18; O2SAT 97
[2017-06-26 02:02] VITALS: BP 12/70; PULSE 56; RESP 18; O2SAT 99
[2017-06-26 06:13] VITALS: BP 125/64; PULSE 68; RESP 18; O2SAT 99
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
--- NOTE | 2017-06-26 09:32 | PD ---
Physical Exam Date Seen by Provider: Jun 26, 2017 Time Seen by Provider: 09:30 Narrative For full History physical examination please see previous provider's notes. Data Data Last Documented VS Vital Signs Date Time Temp Pulse Resp B/P (MAP) Pulse Ox O2 Delivery O2 Flow Rate FiO2 06/26/17 06:13 68 18 125/64 (84) 99 06/26/17 02:02 Room Air 06/25/17 01:01 98.3 Orders Orders Complete Blood Count With Diff (06/25/17 00:50) Basic Metabolic Panel (Bmp) (06/25/17 00:50) Psych Screen (06/25/17 00:50) Drug Screen, Random Urine (06/25/17 00:50) Alcohol (Ethanol) (06/25/17 00:50) Diet Regular Basic (06/25/17 Breakfast) Diet Regular Basic (06/25/17 Lunch) Diet Regular Basic (06/25/17 Dinner) Diet Regular Basic (06/26/17 Breakfast) Diet Regular Basic (06/26/17 Lunch) Labs Laboratory Tests Test 06/25/17 00:55 06/25/17 01:05 White Blood Count 8.3 TH/MM3 Red Blood Count 4.15 MIL/MM3 Hemoglobin 13.1 GM/DL Hematocrit 38.1 % Mean Corpuscular Volume 91.9 FL Mean Corpuscular Hemoglobin 31.5 PG Mean Corpuscular Hemoglobin Concent 34.3 % Red Cell Distribution Width 13.6 % Platelet Count 271 TH/MM3 Mean Platelet Volume 7.2 FL Neutrophils (%) (Auto) 70.3 % Lymphocytes (%) (Auto) 20.9 % Monocytes (%) (Auto) 7.8 % Eosinophils (%) (Auto) 0.5 % Basophils (%) (Auto) 0.5 % Neutrophils # (Auto) 5.9 TH/MM3 Lymphocytes # (Auto) 1.7 TH/MM3 Monocytes # (Auto) 0.6 TH/MM3 Eosinophils # (Auto) 0.0 TH/MM3 Basophils # (Auto) 0.0 TH/MM3 CBC Comment DIFF FINAL Differential Comment Blood Urea Nitrogen 16 MG/DL Creatinine 1.37 MG/DL Random Glucose 69 MG/DL Calcium Level 8.6 MG/DL Sodium Level 143 MEQ/L Potassium Level 4.5 MEQ/L Chloride Level 111 MEQ/L Carbon Dioxide Level 25.2 MEQ/L Anion Gap 7 MEQ/L Estimat Glomerular Filtration Rate 64 ML/MIN Ethyl Alcohol Level 17 MG/DL Urine Opiates Screen NEG Urine Barbiturates Screen NEG Urine Amphetamines Screen POS Urine Benzodiazepines Screen NEG Urine Cocaine Screen POS Urine Cannabinoids Screen POS MDM Medical Record Reviewed: Yes Supervised Visit with VIRAJ: No Narrative Course Patient was brought in as a Guillen act, he was seen and evaluated in the emergency department, medically cleared. He was then evaluated by psychiatric nurse practitioner. The Guillen act was lifted. Please see previous provider's notes. Patient will be discharged home. Diagnosis Primary Impression: Drug-induced psychotic disorder with hallucinations Additional Impressions: Schizoaffective disorder, bipolar type Substance abuse Referrals: [facility] (Out patient) Patient Instructions: General Instructions Additional Instruction: Follow-up at [facility] Follow-up with your primary doctor Avoid illicit drug use, avoid excessive alcohol intake Return to emergency department for any new or worsening symptoms Med/Other Pt SpecificInfo: No Change to Meds Disposition: 01 DISCHARGE HOME Condition: Stable Bess Sánchez Jun 26, 2017 09:32
== END 2017-06-26 10:00 | disposition home or self-care (01) ==
LOC: NEPD 00:44 → NEPJ 06-26 10:00
DX: F19.151 Other psychoactive substance abuse with psychoactive substance-induced psychotic disorder with hallucinations (principal); F25.0 Schizoaffective disorder, bipolar type; F17.200 Nicotine dependence, unspecified, uncomplicated; Z79.899 Other long term (current) drug therapy
CPT/HCPCS: 80048; 80307; 85025; 99284

== ENCOUNTER 2017-07-13 02:41 | Emergency (ER) | payer MEDICAID, OTHER ==
[~2017-07-13] VITALS: Ht 180.3 cm; Wt 72.0 kg
[~2017-07-13 02:41] MED LIST changes: -LISI-519 PO
[2017-07-13 02:42] VITALS: BP 131/73; PULSE 90; RESP 18; TEMP 97.6; O2SAT 95
[2017-07-13] MEDS ORDERED: guaiFENesin E.R. 600 MG TAB PO ONE (03:00)
[2017-07-13] MEDS ORDERED: methylPREDNISolone SOD SUCC 125 MG/2 ML VIAL IM ONE (03:00)
[2017-07-13] MEDS ORDERED: RESP: BUDESONIDE 0.5 MG/2 ML NEB NEB ONE (03:00)
--- NOTE | 2017-07-13 03:04 | PD ---
HPI Chief Complaint: Cold / Flu Symptoms Time Seen by Provider: 02:50 Travel History International Travel<30 days: No Contact w/Intl Traveler<30days: No Traveled to known affect area: No History of Present Illness HPI Patient is a 57-year-old male presenting to the emergency department for evaluation of shortness of breath, cough, nasal congestion. Patient states his symptoms started last night. He denies any documented fevers but states he's felt hot at times. He denies any nausea, vomiting, abdominal pain, chest pain. PFSH Past Medical History Hx Anticoagulant Therapy: No Arthritis: Yes Bipolar Disorder: Yes Depression: Yes Heart Rhythm Problems: No Cardiac Catheterization: Yes Cardiovascular Problems: Yes Chemotherapy: No Chest Pain: Yes Congestive Heart Failure: No Cerebrovascular Accident: No Diabetes: No Diminished Hearing: No Gastrointestinal Disorders: Yes Heparin Induced Thrombocytopen: Yes Hypertension: Yes Musculoskeletal: Yes (knee replacement) Neurologic: Yes Psychiatric: Yes Respiratory: No Immunizations Current: Yes Schizophrenia: Yes Past Surgical History Abdominal Surgery: Yes (HERNIA REPAIR) Coronary Artery Bypass Graft: No Social History Alcohol Use: Yes (beers) Tobacco Use: Yes (1/2PPD) Substance Use: No (crack cocaine) Allergies-Medications (Allergen,Severity, Reaction): Coded Allergies: No Known Allergies (Verified , 07/13/17) Reported Meds & Prescriptions Reported Meds & Active Scripts Active Mucus Relief ER (Guaifenesin) 600 Mg Tab 600 Mg PO BID PRN 10 Days Proair Hfa 8.5 GM Inh (Albuterol Sulfate) 90 Mcg/Act Aer 2 Puff INH Q4-6H PRN 108 mcg/actuation Azithromycin 250 Mg Tab 250 Mg PO DAILY 4 Days Start on 07/14/2017 Risperdal (Risperidone) 1 Mg Tab 1 Mg PO Q12HR Review of Systems Except as stated in HPI: all other systems reviewed are Neg General / Constitutional: Positive: Chills, No: Fever HENT: Positive: Rhinitis, Congestion, No: Headaches Cardiovascular: No: Chest Pain or Discomfort Respiratory: Positive: Cough, Shortness of Breath, Wheezing Gastrointestinal: No: Nausea, Abdominal Pain Musculoskeletal: No: Myalgias Physical Exam Narrative GENERAL: Well-developed, well-nourished, alert gentleman. Resting comfortably in no acute distress. SKIN: Warm and dry. HEAD: Atraumatic. Normocephalic. EYES: Pupils equal and round. No scleral icterus. No injection or drainage. ENT: No nasal bleeding or discharge. Mucous membranes pink and moist. NECK: Trachea midline. No JVD. CARDIOVASCULAR: Regular rate and rhythm. RESPIRATORY: No accessory muscle use. Expiratory wheezing throughout. No increased work of breathing, no nasal flaring, no accessory muscle use. GASTROINTESTINAL: Abdomen soft, non-tender, nondistended. Hepatic and splenic margins not palpable. MUSCULOSKELETAL: Extremities without clubbing, cyanosis, or edema. No obvious deformities. NEUROLOGICAL: Awake and alert. No obvious cranial nerve deficits. Motor grossly within normal limits. Five out of 5 muscle strength in the arms and legs. Normal speech. PSYCHIATRIC: Appropriate mood and affect; insight and judgment normal. Data Data Last Documented VS Vital Signs Date Time Temp Pulse Resp B/P (MAP) Pulse Ox O2 Delivery O2 Flow Rate FiO2 07/13/17 02:42 97.6 90 18 131/73 (92) 95 Room Air Orders Orders Chest, Single Ap (07/13/17 02:51) Methylprednisolone So Succ Inj (Solumedr (07/13/17 03:00) Albuterol-Ipratropium Neb (Duoneb Neb) (07/13/17 03:00) Budesonide Neb (Pulmicort Respule Neb) (07/13/17 03:00) Guaifenesin Er (Mucinex Er) (07/13/17 03:00) Azithromycin (Zithromax) (07/13/17 03:30) MDM Medical Decision Making Medical Screen Exam Complete: Yes Emergency Medical Condition: Yes Interpretation(s) Vital Signs Date Time Temp Pulse Resp B/P (MAP) Pulse Ox O2 Delivery O2 Flow Rate FiO2 07/13/17 02:42 97.6 90 18 131/73 (92) 95 Room Air Differential Diagnosis URI versus COPD exacerbation versus pneumonia versus other Narrative Course Patient is a 57-year-old male that presented to the emergency evaluation of cough, congestion that started tonight. Patient's vital signs are stable, he is well oxygenated on room air. On exam he was noted to have expiratory wheezing throughout. He has a long standing history of tobacco use with no documented diagnosis of COPD. Chest x-ray, nebulizers ordered. IM, Solu- Medrol ordered. Chest x-ray which was read by the radiologist shows no acute disease. Patient was reassessed after administration of budesonide and DuoNeb nebulizer, lung sounds have improved significantly, no wheezing noted on exam. Patient was given first dose of azithromycin in the emergency department. Abrasion is encouraged to take medication as directed, he is encouraged to follow-up with his primary doctor. He was further encouraged to return to emergency department for any new or worsening symptoms. Furthermore patient was encouraged to avoid tobacco use. Patient is stable for discharge. Diagnosis Primary Impression: Bronchitis Referrals: Primary Care Physician 2 days Patient Instructions: Acute Bronchitis (ED), General Instructions Additional Instructions: Follow-up with your primary doctor Take medications as directed Return to emergency department for any new or worsening symptoms Avoid tobacco use Med/Other Pt SpecificInfo: Prescription(s) given Scripts Prednisone (Prednisone) 50 Mg Tab 50 MG PO DAILY for 3 Days, #3 TAB 0 Refills Prov: Bess Sánchez 07/13/17 Guaifenesin ER (Mucus Relief ER) 600 Mg Tab 600 MG PO BID Y for CHEST CONGESTION AND/OR COUGH for 10 Days, #20 TAB 0 Refills Prov: Bess Sánchez 07/13/17 Albuterol 8.5 GM Inh (Proair Hfa 8.5 GM Inh) 90 Mcg/Act Aer 2 PUFF INH Q4-6H Y for SHORTNESS OF BREATH, #1 INHALER 0 Refills 108 mcg/actuation Prov: Bess Sánchez 07/13/17 Azithromycin (Azithromycin) 250 Mg Tab 250 MG PO DAILY for Infection for 4 Days, #4 TAB 0 Refills Start on 07/14/2017 Prov: Bess Sánchez 07/13/17 Disposition: 01 DISCHARGE HOME Condition: Stable Bess Sánchez Jul 13, 2017 03:04
[2017-07-13] MEDS: RESP: ALBUTEROL 2.5 MG/IPRATROPIUM 0.5 MG NEB (SCH) INH (03:07)
--- NOTE | 2017-07-13 03:13 | RADRPT ---
EXAM DATE/TIME: 07/13/2017 02:55 [facility] COMPARISON: CHEST SINGLE AP, August 26, 2016, 13:25. INDICATIONS : Short of breath. MEDICAL HISTORY : None. SURGICAL HISTORY : None. ENCOUNTER: Initial ACUITY: 1 day PAIN SCORE: 0/10 LOCATION: Bilateral chest FINDINGS: A single view of the chest demonstrates the lungs to be symmetrically aerated without evidence of mas s, infiltrate or effusion. The cardiomediastinal contours are unremarkable. Osseous structures are intact. CONCLUSION: No acute disease. Willie Garcia MD on July 13, 2017 at 3:11 Board Certified Radiologist. This report was verified electronically.
[2017-07-13] MEDS ORDERED: AZIT250T3 PO (03:29)
[2017-07-13] MEDS ORDERED: GUAI600T11 PO (03:29)
[2017-07-13] MEDS ORDERED: ALBUAER3 INH (03:29)
[2017-07-13] MEDS ORDERED: AZITHROMYCIN 250 MG TAB PO ONE (03:30)
[2017-07-13] MEDS ORDERED: PRED50 PO (03:42)
== END 2017-07-13 04:26 | disposition home or self-care (01) ==
LOC: NEPD 02:41
DX: J40 Bronchitis, not specified as acute or chronic (principal); R09.81 Nasal congestion; I10 Essential (primary) hypertension; F17.200 Nicotine dependence, unspecified, uncomplicated; Z87.39 Personal history of other diseases of the musculoskeletal system and connective tissue; Z86.59 Personal history of other mental and behavioral disorders; Z86.79 Personal history of other diseases of the circulatory system; Z87.19 Personal history of other diseases of the digestive system; Z86.69 Personal history of other diseases of the nervous system and sense organs
CPT/HCPCS: 71010; 94640; 94664; 96372; 99285; J2930; J7626

== ENCOUNTER 2017-07-16 21:16 | Inpatient (IN) | payer OTHER ==
[~2017-07-16] VITALS: Ht 180.3 cm; Wt 66.4 kg
[~2017-07-16 21:16] MED LIST changes: +ALBUAER3 INH; +AZIT250T3 PO; +GUAI600T11 PO; +PRED50 PO
[2017-07-16 21:30] VITALS: BP 118/76; PULSE 92; RESP 16; TEMP 98; O2SAT 96
--- NOTE | 2017-07-16 21:38 | PD ---
HPI . Guillen Act Chief Complaint: Psychiatric Symptoms Time Seen by Provider: 21:33 Travel History International Travel<30 days: No Contact w/Intl Traveler<30days: No Traveled to known affect area: No History of Present Illness HPI Patient presents as a Guillen Act. He reportedly states that he wants to hurt or kill other people. He tells me that people irritate him. He reports that he walks the streets with a metal pole looking for someone to hurt. His symptoms are probably exacerbated by polysubstance abuse. He carries a diagnosis of substance induced mood disorder. PFSH Past Medical History Hx Anticoagulant Therapy: No Arthritis: Yes Bipolar Disorder: Yes Depression: Yes Heart Rhythm Problems: No Cardiac Catheterization: Yes Cardiovascular Problems: Yes Chemotherapy: No Chest Pain: Yes Congestive Heart Failure: No Cerebrovascular Accident: No Diabetes: No Diminished Hearing: No Gastrointestinal Disorders: Yes Heparin Induced Thrombocytopen: Yes Hypertension: Yes Musculoskeletal: Yes (knee replacement) Neurologic: Yes Psychiatric: Yes Respiratory: No Immunizations Current: Yes Schizophrenia: Yes Past Surgical History Abdominal Surgery: Yes (HERNIA REPAIR) Coronary Artery Bypass Graft: No Social History Alcohol Use: Yes (beers) Tobacco Use: Yes (1/2PPD) Substance Use: No (crack cocaine) Allergies-Medications (Allergen,Severity, Reaction): Coded Allergies: No Known Allergies (Verified , 07/16/17) Reported Meds & Prescriptions Reported Meds & Active Scripts Active No Active Prescriptions or Reported Medications Review of Systems Except as stated in HPI: all other systems reviewed are Neg Psychiatric: Positive: Disorder of Thought, Homicidal Ideation Physical Exam Narrative GENERAL: Patient is sitting calmly in the ambulance bay. SKIN: Warm and dry with no rash or lesions. HEAD: Normocephalic/atraumatic. EYES: Pupils are equal. Extraocular movements are intact. NECK: Supple. CARDIOVASCULAR: Regular rate and rhythm. RESPIRATORY: Nonlabored respirations MUSCULOSKELETAL: Atraumatic NEUROLOGICAL: Awake and alert. Nerves are grossly intact. Motor strength is grossly intact. PSYCHIATRIC: The patient admits that he has thoughts of harming others. He appears to be responding to internal stimuli in that his eyes are darting around. Data Data Last Documented VS Vital Signs Date Time Temp Pulse Resp B/P (MAP) Pulse Ox O2 Delivery O2 Flow Rate FiO2 07/16/17 21:30 98.0 92 16 118/76 (90) 96 Orders Orders Drug Screen, Random Urine (07/16/17 21:34) Alcohol (Ethanol) (07/16/17 21:34) [facility] Medical Decision Making Medical Screen Exam Complete: Yes Emergency Medical Condition: Yes Medical Record Reviewed: Yes (this patient has been seen here in the recent past and has had labs drawn. He does not have any chronic medical problems that need laboratory evaluation.) Differential Diagnosis Differential diagnosis of psychosis includes but is not limited to schizophrenia , schizoaffective disorder, bipolar disorder, intoxication, substance abuse, dementia Narrative Course This patient presents as a guillen act. He does not have any chronic medical problems that require a laboratory medical screening exam. I have ordered a drug screen and an alcohol level. He is medically cleared to go to [facility] Diagnosis Primary Impression: Medical clearance for psychiatric admission Scripts No Active Prescriptions or Reported Meds Condition: Karla Solorio MD Jul 16, 2017 21:38
[2017-07-16 22:56] VITALS: BP 137/81; PULSE 77; RESP 18; O2SAT 97
[2017-07-17 03:42] VITALS: BP 143/79; PULSE 86; RESP 15; O2SAT 96
[2017-07-17 07:01] VITALS: BP 131/68; PULSE 66; RESP 15; O2SAT 99
[2017-07-17] MEDS ORDERED: ACETAMINOPHEN 325 MG TAB PO PRN (13:00)
[2017-07-17] MEDS ORDERED: MAGNESIUM HYDROXIDE SUSP 30 ML CUP PO PRN (13:00)
[2017-07-17] MEDS ORDERED: ALUMINUM/MAGNESIUM/SIMETH 30 ML CUP PO PRN (13:00)
--- NOTE | 2017-07-17 13:14 | HHI.HP ---
Provisional Diagnosis Admission Date [place] I. Unspecified psychosis, cocaine and cannabis use disorder, history of schizoaffective disorder [place] II. Antisocial personality disorder [place] III. No significant medical history [place] IV. Multiple psychiatric hospitalizations, noncompliant with medications, polysubstance dependence [place] V. 45 Certification of Person's Competence To Provide Express and Informed Consent I have personally examined Олег Austin , a person being served at [facility] on, Jul 17, 2017 13:01. Express and informed consent means consent voluntarily given in writing, by a competent person, after sufficient explanation and disclosure of the subject matter involved to enable the person to make a knowing and willful decision without any element of force, fraud, deceit, duress, or other form of constraint or coercion. This person is 18 years of age or older, is not now known to be incompetent to consent to treatment with a guardian advocate, and does not have a health care surrogate or proxy currently making medical treatment decisions. I have found this person to be one of the following: [X] Competent to provide express and informed consent, as defined above, for voluntary admission to this facility and is competent to provide express and informed consent for treatment. He/she has the consistent capacity to make well reasoned, willful, and knowing decisions concerning his or her medical or mental health treatment. The person fully and consistently understands the purpose of the admission for examination/placement and is fully capable of personally exercising all rights [place] Incompetent to provide express and informed consent to voluntary admission, and this is incompetent to provide express and informed consent to treatment. The person must be transferred to involuntary status and a petition for a guardian advocate filed with the Circuit Court. [] Refusing to provide express and informed consent to voluntary admission but is competent to provide express and informed consent for treatment. The person must be discharged or transferred to involuntary status. Form shall be completed within 24 hours of a person's arrival at the receiving facility and filed in the clinical record of each person: 1. Admitted on a voluntary basis 2. Permitted to provide express and informed consent to his/her own treatment 3. Allowed to transfer from involuntary to voluntary status 4. Prior to permitting a person to consent to his or her own treatment after having been previously found incompetent to consent to treatment. History of Present Illness Capacity: Has Capacity HPI The patient is a 57 year-old man, domiciled with his brother in [facility], unemployed, single, on SSI, with extensive psychiatric history of schizoaffective disorder, psychosis, polysubstance dependence including alcohol , cocaine, cannabis, amphetamines, multiple ER visits with suicidal ideation, drug intoxication, psychiatric hospitalizations, self cutting and self mutilating behavior without SI, no significant medical history, who patient presents as a Guillen Act. He reportedly states that he wants to hurt or kill other people. He tells me that people irritate him. He reports that he walks the streets with a metal pole looking for someone to hurt. His symptoms are probably exacerbated by polysubstance abuse. On psychiatric evaluation today she is irritable, oppositional, he stated that he has been hearing voices telling him to kill people in the street. Patient states that he has been hearing these voices for the last 2 days. Voices has been increasing in severity and frequency, and most for aggravated by the use of cocaine "and speed ". Patient reports that he really doesn't want to hurt anybody," but I am afraid that I might act out voices". Patient requests to be restarted in psychotropics for psychosis. He also reports paranoia about walking people industry. He feels that people want to hurt him. At this moment he denies suicidal ideation, he denies auditory hallucinations. She is oriented 3, no attention deficit, no frustration of consciousness. Attracted for safety in the ER. He reports daily use of cocaine and cannabis, alcohol and speed occasionally. Review of Systems Constitutional: DENIES: Diaphoretic episodes, Fatigue, Fever, Weight gain, Weight loss, Chills, Dizziness, Change in appetite, Night Sweats Endocrine: DENIES: Heat/cold intolerance, Polydipsia, Polyuria, Polyphagia Eyes: DENIES: Blurred vision, Diplopia, Eye inflammation, Eye pain, Vision loss , Photosensitivity, Double Vision Respiratory: DENIES: Apneas, Cough, Snoring, Wheezing, Hemoptysis, Sputum production, Shortness of breath Cardiovascular: DENIES: Chest pain, Palpitations, Syncope, Dyspnea on Exertion , PND, Lower Extremity Edema, Orthopnea, Claudication Gastrointestinal: DENIES: Abdominal pain, Black stools, Bloody stools, Constipation, Diarrhea, Nausea, Vomiting, Difficulty Swallowing, Anorexia Genitourinary: DENIES: Sexual dysfunction, Urinary frequency, Urinary incontinence, Urgency, Hematuria, Dysuria, Nocturia, Penile Discharge, Testicular Pain, Testicular Swelling Musculoskeletal: DENIES: Joint pain, Muscle aches, Stiffness, Joint Swelling, Back pain, Neck pain Integumentary: DENIES: Abnormal pigmentation, Nail changes, Pruritus, Rash Hematologic/lymphatic: DENIES: Bruising, Lymphadenopathy Immunologic/allergic: DENIES: Eczema, Urticaria Neurologic: DENIES: Abnormal gait, Headache, Localized weakness, Paresthesias, Seizures, Speech Problems, Tremor, Poor Balance Psychiatric: COMPLAINS OF: Hallucinations Past Psych History Violence risk - others (6 mos) Increased Substance Abuse History Drugs/Alcohol past 12 months Patient reports daily use of cocaine and cannabis, occasional use of alcohol. Past Family Social History Coded Allergies: No Known Allergies (Verified , 07/16/17) Discontinued Scripts Prednisone (Prednisone) 50 Mg Tab, 50 MG PO DAILY for 3 Days, #3 TAB 0 Refills Prov:Bess Sánchez 07/13/17 Guaifenesin ER (Mucus Relief ER) 600 Mg Tab, 600 MG PO BID Y for CHEST CONGESTION AND/OR COUGH for 10 Days, #20 TAB 0 Refills Prov:Bess Sánchez 07/13/17 Albuterol 8.5 GM Inh (Proair Hfa 8.5 GM Inh) 90 Mcg/Act Aer, 2 PUFF INH Q4-6H Y for SHORTNESS OF BREATH, #1 INHALER 0 Refills 108 mcg/actuation Prov:Bess Sánchez 07/13/17 Azithromycin (Azithromycin) 250 Mg Tab, 250 MG PO DAILY for Infection for 4 Days , #4 TAB 0 Refills Start on 07/14/2017 Prov:Bess Sánchez 07/13/17 Risperidone (Risperdal) 1 Mg Tab, 1 MG PO Q12HR for stabilize mood, #60 TAB Prov:Rohini Alvarez MD 09/02/16 Family Psych History Patient says that his brother has bipolar disorder Social History A she was born and raised in [facility], he lives in [place] his brother, is unemployed, single, supported by [facility] Patient's Strengths (min. 2) Verbal communication Physical Exam No EPS, no tremors, no stiffness, no psychomotor retardation or agitation, no gait disturbance Vital Signs Vital Signs Date Time Temp Pulse Resp B/P (MAP) Pulse Ox O2 Delivery O2 Flow Rate FiO2 07/17/17 07:01 66 15 131/68 (89) 99 07/16/17 21:30 98.0 Lab Results Test 07/16/17 21:45 07/16/17 22:09 Urine Opiates Screen NEG Urine Barbiturates Screen NEG Urine Amphetamines Screen NEG Urine Benzodiazepines Screen NEG Urine Cocaine Screen POS Urine Cannabinoids Screen POS Ethyl Alcohol Level LESS THAN 3 MG/DL Mental Status Examination Appearance: Appropriate Consciousness: Alert Orientation: x4 Motor Activity: Normal gait Speech: Unremarkable Language: Adequate Fund of Knowledge: Adequate Attention and Concentration: Adequate Memory: Unremarkable Mood: Appropriate Affect: Appropriate Thought Process & Associations: Intact Thought Content: Delusional (paranoid delusions) Hallucination Type: Auditory (commanding type) Delusion Type: None Suicidal Ideation: No Suicidal Plan: No Suicidal Intention: No Homicidal Ideation: Yes (no specific) Homicidal Plan: No Homicidal Intention: No Insight: Adequate Judgment: Adequate Assessment & Plan Problem List: (1) Unspecified psychosis ICD Codes: F29 - Unspecified psychosis not due to a substance or known physiological condition Assessment & Plan: On psychiatric evaluation today the patient reports ongoing , increased in severity and frequency auditory hallucinations of voices telling him to hurt people in the street, for the last 2 days. Patient also reports increased paranoia of people following in the street. She reports that he does not feel safe walking in the community. He seems to be motivated to restart psychotropics in inpatient. Patient will be admitted in psychiatric in voluntary basis to treat his auditory hallucinations and for safety. At this point is unclear if a etiologically psychosis is related with a primary psychiatric illness decompensation, continues use of drugs or even conscious simulation with secondary gain of using the hospital as a jail. During this evaluation I could observe several factors of patient behavior and past psychiatric history the suggest also an underlying antisocial personality disorder. We'll start Haldol 5 mg twice a day for psychosis, Cogentin 2 mg. CoLateral information is state dependent. glassworker intervention for collateral information, individual and group therapies, psychosocial assessment and also to coordinate a safe discharge plan. Assessment & Plan Estimated LOS: Lawrence Borrero MD Jul 17, 2017 13:14
[2017-07-17] MEDS: NICOTINE 21 MG/24 HR PATCH T-DERMAL SCH (14:25)
[2017-07-17] MEDS: BENZTROPINE MESYLATE 2 MG TAB PO SCH ×2 (14:25→20:52)
[2017-07-17] MEDS: HALOPERIDOL 5 MG TAB PO SCH ×2 (14:26→20:52)
[2017-07-17 15:15] VITALS: BP 123/77; PULSE 68; RESP 18; TEMP 98.6; O2SAT 98
--- NOTE | 2017-07-17 18:52 | EKG ---
Date Performed: 07/17/2017 Time Performed: 18:32:49 PTAGE: 57 years EKG: Baseline artifact present Sinus rhythm NONSPECIFIC T-WAVE ABNORMALITY ABNORMAL ECG Compared to prior electrocardiogram, Nonspecific T wave changes are less marked PREVIOUS TRACING : 08/28/2016 13.40 DOCTOR: Matthew Queen Interpretating Date/Time 07/17/2017 18:50:37
[2017-07-17] MEDS: REMOVE OLD NICODERM (NICOTINE) PATCH T-DERMAL SCH (20:53)
[2017-07-18 05:48] VITALS: BP 132/74; PULSE 76; RESP 16; TEMP 97.5; O2SAT 100
[2017-07-18] MEDS ORDERED: LORazepam 2 MG/ML VIAL IV PUSH PRN ×4 (08:45)
[2017-07-18] MEDS ORDERED: LORazepam 1 MG TAB PO PRN (08:45)
[2017-07-18] MEDS ORDERED: FLUMAZENIL 0.5 MG/5 ML VIAL IV PUSH PRN (08:45)
[2017-07-18] MEDS ORDERED: LORazepam 2 MG TAB PO PRN (08:45)
[2017-07-18] MEDS: NICOTINE 21 MG/24 HR PATCH T-DERMAL SCH (09:25)
[2017-07-18] MEDS: BENZTROPINE MESYLATE 2 MG TAB PO SCH ×2 (09:25→20:23)
[2017-07-18] MEDS: HALOPERIDOL 5 MG TAB PO SCH ×2 (09:25→20:23)
[2017-07-18] MEDS ORDERED: INFLUENZA VIRUS VACCINE (QUADRIVALENT) 0.5 ML SYR IM ONE (10:00)
[2017-07-18 10:18] LABS: ANION GAP 7 MEQ/L (5-15); BICARBONATE 29.8 MEQ/L (21.0-32.0); BLOOD UREA NITROGEN 13 MG/DL (7-18); CHLORIDE 101 MEQ/L (98-107); GLOMERULAR FILTRATION RATE 72 ML/MIN (>89); POTASSIUM 4.8 MEQ/L (3.5-5.1); SODIUM (NA) 138 MEQ/L (136-145)
[2017-07-18 10:22] LABS: HDL CHOLESTEROL 73.7 MG/DL (40.0-60.0); LDL CHOLESTEROL 46 MG/DL (0-99)
--- NOTE | 2017-07-18 16:06 | HHI.PYPN ---
Subjective Remarks Patient was seen and case discussed with nursing. Patient is pleasant and cooperative with exam. CIWA is 0. There is no evidence of all call withdrawal. Patient minimizes his drug use. He does admit to frequent auditory hallucinations and says that he wayne himself when they tell him to hurt other people area he wants to hurt other people and their rude to him. He has no homicidal ideation intent or plan towards anyone. Tolerating his medications well. Patient says the hallucinations have resolved today Mental Status Examination Appearance: Appropriate Consciousness: Alert Orientation: x4 Motor Activity: Normal gait Speech: Unremarkable Language: Adequate Fund of Knowledge: Adequate Attention and Concentration: Adequate Memory: Unremarkable Mood: Appropriate Affect: Appropriate Thought Process & Associations: Intact Thought Content: Delusional (paranoid delusions) Hallucination Type: Auditory (denies today) Delusion Type: None Suicidal Ideation: No Suicidal Plan: No Suicidal Intention: No Homicidal Ideation: Yes (no specific) Homicidal Plan: No Homicidal Intention: No Insight: Adequate Judgment: Adequate Results Labs Test 07/18/17 09:18 Blood Urea Nitrogen 13 MG/DL Creatinine 1.25 MG/DL Random Glucose 64 MG/DL Calcium Level 9.5 MG/DL Sodium Level 138 MEQ/L Potassium Level 4.8 MEQ/L Chloride Level 101 MEQ/L Carbon Dioxide Level 29.8 MEQ/L Anion Gap 7 MEQ/L Estimat Glomerular Filtration Rate 72 ML/MIN Triglycerides Level 114 MG/DL Cholesterol Level 142 MG/DL LDL Cholesterol 46 MG/DL HDL Cholesterol 73.7 MG/DL Cholesterol/HDL Ratio 1.92 RATIO Vitals/IOs Vital Signs Date Time Temp Pulse Resp B/P (MAP) Pulse Ox O2 Delivery O2 Flow Rate FiO2 07/18/17 05:48 97.5 76 16 132/74 (93) 100 Assessment & Plan Problem List: (1) Unspecified psychosis ICD Codes: F29 - Unspecified psychosis not due to a substance or known physiological condition Assessment & Plan Continue current treatment plan Justification for Cont. Inpt. Patient will decompensate in a less restrictive setting Fred Cook DO Jul 18, 2017 16:06
[2017-07-18 17:19] VITALS: BP 128/86; PULSE 106; TEMP 97.1; O2SAT 100
[2017-07-18] MEDS: REMOVE OLD NICODERM (NICOTINE) PATCH T-DERMAL SCH (20:24)
[2017-07-19 05:43] VITALS: BP 117/62; PULSE 87; RESP 16; TEMP 97.4; O2SAT 98
[2017-07-19] MEDS: NICOTINE 21 MG/24 HR PATCH T-DERMAL SCH (09:00)
[2017-07-19] MEDS: BENZTROPINE MESYLATE 2 MG TAB PO SCH ×2 (09:13→20:40)
[2017-07-19] MEDS: HALOPERIDOL 5 MG TAB PO SCH ×2 (09:13→20:40)
--- NOTE | 2017-07-19 12:34 | HHI.PYPN ---
Subjective Remarks Patient seen and examined with nurse. Chart reviewed. Case discussed with nursing staff. On my examination today, patient denies any suicidal or homicidal ideation. He denies any audiovisual hallucinations. He reports that he is sleeping well. He continues to do well somewhat on his sister's and nephew's passing and says that he remains somewhat depressed. Denies any side effects from medications, and he feels like the Haldol/Cogentin combination is helping. Complains of cough, and I see the patient was recently treated for bronchitis with prednisone/Zithromax and also given a p.r.n. of guaifenesin and albuterol. Also reports recent unprotected sexual encounter and is requesting HIV test. Denies any history of IV drug use. No other physical complaints. Review of Systems Except as stated in HPI: all other systems reviewed are Neg Mental Status Examination Appearance: Appropriate Consciousness: Alert Orientation: x4 Motor Activity: Normal gait Speech: Unremarkable Language: Adequate Fund of Knowledge: Adequate Attention and Concentration: Adequate Memory: Unremarkable Mood: Other (somewhat depressed) Affect: Appropriate (fairly full and reactive) Thought Process & Associations: Logical, Linear Hallucination Type: None (denies AVH) Delusion Type: None (no delusions) Suicidal Ideation: No Suicidal Plan: No Suicidal Intention: No Homicidal Ideation: No Homicidal Plan: No Homicidal Intention: No Insight: Adequate Judgment: Adequate Mental Status Exam Remarks No hand tremor, no cogwheeling, no hypomimia, no dystonia, no dyskinesia. No signs of withdrawal noted. Results Labs Labs reviewed. Vitals/IOs Vital Signs Date Time Temp Pulse Resp B/P (MAP) Pulse Ox O2 Delivery O2 Flow Rate FiO2 07/19/17 05:43 97.4 87 16 117/62 (80) 98 Assessment & Plan Problem List: (1) Other psychotic disorder not due to a substance or known physiological condition ICD Codes: F28 - Other psychotic disorder not due to a substance or known physiological condition (2) Polysubstance abuse ICD Codes: F19.10 - Other psychoactive substance abuse, uncomplicated Assessment & Plan Drug-induced psychiatric symptoms, now resolving, and symptom exaggeration for senior living remain in differential. Add Lexapro 10 mg daily for mood. R/B/A discussed with patient. Continue Haldol and Cogentin as ordered. CIWA 0. D/c CIWA. I have ordered guaifenesin and albuterol p.r.n. for respiratory symptoms. Check HIV and Hepatitis panel. Continue to monitor on the inpatient unit. Continue other medications and care as ordered. Justification for Cont. Inpt. Medication changes. Monitoring for impairments in safety, none noted. Discharge Planning Anticipate discharge by middle of the week. Request HC Surrog/Guard Advoc?: No Avila Walsh MD Jul 19, 2017 12:34
[2017-07-19] MEDS: ESCITALOPRAM OXALATE 10 MG TAB PO SCH (13:24)
[2017-07-19 15:47] LABS: HEMOGLOBIN A1a 0.9 %; HEMOGLOBIN A1b 1.6 %; HEMOGLOBIN Ao 85.7 %; HEMOGLOBIN LA1C 1.3 %; HEMOGLOBIN P3 3.6 %
[2017-07-19] MEDS ORDERED: ALBUTEROL SULFATE 90 MCG/ACT HFA 18 GM INHALER INH PRN (17:30)
[2017-07-19 18:00] VITALS: BP 113/70; PULSE 98; RESP 16; TEMP 98.5; O2SAT 99
[2017-07-19] MEDS: REMOVE OLD NICODERM (NICOTINE) PATCH T-DERMAL SCH (20:48)
[2017-07-19] MEDS: guaiFENesin E.R. 600 MG TAB PO PRN (20:59)
[2017-07-20 06:13] VITALS: BP 114/80; PULSE 98; RESP 17; TEMP 98.1; O2SAT 96
[2017-07-20] MEDS: HALOPERIDOL 5 MG TAB PO SCH ×2 (08:29→20:34)
[2017-07-20] MEDS: ESCITALOPRAM OXALATE 10 MG TAB PO SCH (08:29)
[2017-07-20] MEDS: BENZTROPINE MESYLATE 2 MG TAB PO SCH ×2 (08:29→20:34)
[2017-07-20] MEDS: NICOTINE 21 MG/24 HR PATCH T-DERMAL SCH (08:31)
[2017-07-20] MEDS: guaiFENesin E.R. 600 MG TAB PO PRN ×2 (09:26→20:34)
[2017-07-20 15:58] VITALS: BP 122/64; PULSE 97; RESP 18; TEMP 99.4; O2SAT 96
--- NOTE | 2017-07-20 16:46 | HHI.PYPN ---
Subjective Remarks Patient seen and examined with nurse. Chart reviewed. Case discussed with nursing staff. Per nursing staff, no behavioral issues overnight. On my examination today, the patient is in good spirits. He denies any suicidal or homicidal ideation. Denies any audiovisual hallucinations. Feels that addition of Lexapro is helping, and feels that psychotropics generally are beneficial. Denies side effects from medications. No physical complaints. Review of Systems Except as stated in HPI: all other systems reviewed are Neg Mental Status Examination Appearance: Appropriate Consciousness: Alert Orientation: x4 Motor Activity: Other (no motor abnormalities noted) Speech: Unremarkable Language: Adequate Fund of Knowledge: Adequate Attention and Concentration: Adequate Memory: Unremarkable Mood: Other (improving) Affect: Appropriate (full and reactive) Thought Process & Associations: Logical, Linear Hallucination Type: None Delusion Type: None Suicidal Ideation: No Suicidal Plan: No Suicidal Intention: No Homicidal Ideation: No Homicidal Plan: No Homicidal Intention: No Insight: Adequate Judgment: Adequate Results Labs Test 07/20/17 11:07 Hepatitis A IgM Antibody NEGATIVE Hepatitis B Surface Antigen NEGATIVE Hepatitis B Core IgM Antibody NEGATIVE Hepatitis C Antibody NEGATIVE HIV (1&2) Antibody NEGATIVE Labs reviewed. Hepatitis panel and HIV screen negative. Vitals/IOs Vital Signs Date Time Temp Pulse Resp B/P (MAP) Pulse Ox O2 Delivery O2 Flow Rate FiO2 07/20/17 15:58 99.4 97 18 122/64 (83) 96 Assessment & Plan Problem List: (1) Other psychotic disorder not due to a substance or known physiological condition ICD Codes: F28 - Other psychotic disorder not due to a substance or known physiological condition (2) Polysubstance abuse ICD Codes: F19.10 - Other psychoactive substance abuse, uncomplicated Assessment & Plan Continue current psychotropics as ordered. Continue to monitor on the inpatient unit. Continue other medications and care as ordered. Justification for Cont. Inpt. Final discharge planning Discharge Planning Anticipate discharge tomorrow, Wednesday. Case discussed with counselor. Request HC Surrog/Guard Advoc?: No Avila Walsh MD Jul 20, 2017 16:46
[2017-07-20] MEDS: REMOVE OLD NICODERM (NICOTINE) PATCH T-DERMAL SCH (20:34)
[2017-07-21 06:18] VITALS: BP 123/66; PULSE 105; RESP 18; TEMP 98.2; O2SAT 95
[2017-07-21] MEDS: ESCITALOPRAM OXALATE 10 MG TAB PO SCH (08:27)
[2017-07-21] MEDS: HALOPERIDOL 5 MG TAB PO SCH (08:27)
[2017-07-21] MEDS: BENZTROPINE MESYLATE 2 MG TAB PO SCH (08:27)
[2017-07-21] MEDS: NICOTINE 21 MG/24 HR PATCH T-DERMAL SCH (08:28)
[2017-07-21] MEDS ORDERED: ESCI10TA PO (12:06)
[2017-07-21] MEDS ORDERED: Benztropine PO (12:06)
[2017-07-21] MEDS ORDERED: HALO100P IM (12:06)
[2017-07-21] MEDS ORDERED: HALO5TAB PO (12:06)
[2017-07-21] MEDS ORDERED: guaiFENesin ER PO (12:06)
--- NOTE | 2017-07-21 12:06 | HHI.DS ---
Psychiatry Discharge Summary Inpatient Psychiatric care?: Yes Advance Directive: No Mental Health AdvanceDirective: No Health Care Proxy: No Admission Admission Date Jul 17, 2017 at 13:01 Admission Diagnosis: (1) Unspecified psychosis ICD Code: F29 - Unspecified psychosis not due to a substance or known physiological condition Brief History The patient is a 57 year-old man, domiciled with his brother in [facility], unemployed, single, on SSI, with extensive psychiatric history of schizoaffective disorder, psychosis, polysubstance dependence including alcohol , cocaine, cannabis, amphetamines, multiple ER visits with suicidal ideation, drug intoxication, psychiatric hospitalizations, self cutting and self mutilating behavior without SI, no significant medical history, who patient presents as a Guillen Act. He reportedly states that he wants to hurt or kill other people. He tells me that people irritate him. He reports that he walks the streets with a metal pole looking for someone to hurt. His symptoms are probably exacerbated by polysubstance abuse. On psychiatric evaluation today she is irritable, oppositional, he stated that he has been hearing voices telling him to kill people in the street. Patient states that he has been hearing these voices for the last 2 days. Voices has been increasing in severity and frequency, and most for aggravated by the use of cocaine "and speed ". Patient reports that he really doesn't want to hurt anybody," but I am afraid that I might act out voices". Patient requests to be restarted in psychotropics for psychosis. He also reports paranoia about walking people industry. He feels that people want to hurt him. At this moment he denies suicidal ideation, he denies auditory hallucinations. She is oriented 3, no attention deficit, no frustration of consciousness. Attracted for safety in the ER. He reports daily use of cocaine and cannabis, alcohol and speed occasionally. Tobacco Use In Past 30 Days: 5 or More Cigarettes/Day Alcohol Use: 4 or More Times Per Week Hospital Course Patient was admitted to a locked, inpatient psychiatric unit. Appropriate precautions were in place throughout patient's hospital stay. Patient was seen and examined daily on the unit by psychiatry and also visited by counselor. Psychotropic medications were adjusted. Patient tolerated psychotropic medications well without side effects and had a brisk, positive response to medications. There was no evidence of any suicidality or homicidality on the inpatient unit. The patient remained in good behavioral control and was medication compliant. On the day of discharge: Patient seen and examined with nurse. Chart reviewed. Case discussed with nursing staff. Patient has been no behavioral problem overnight. On my examination today, the patient is in good spirits. He feels ready for discharge from the hospital today. He denies any suicidal or homicidal ideation, intent or plan on direct questioning and contracts for safety. Mood is improved versus admission, and I can elicit no depressive or hypomanic/manic symptoms at this time. He denies any audiovisual hallucinations, and I can elicit no delusional beliefs. He denies side effects from medications. I have discussed with him the option of initiating Haldol Decanoate and educated him regarding the need for temporary oral supplementation with Haldol PO. Patient is agreeable to initiating Haldol Decanoate prior to discharge, and I have ordered this at 10 times the oral total daily dose. He has no physical complaints. His HIV screen and hepatitis panel both resulted negative, and I have counseled him about this and recommended that he utilize safe sex practices including condom use going forward. Weighing the acute, chronic, and protective factors and based on the available evidence, I chief deputy to a reasonable degree of medical certainty that the patient is at low imminent risk of harm to self or others from a mental illness as defined under the Guillen act and his level of function is adequate for outpatient care. The patient has maximized benefit from this inpatient psychiatric hospital stay and will be discharged home today with psychiatric follow-up as arranged by counselor. Patient is also to follow-up with primary care. I have counseled the patient to abstain from abuse of drugs or alcohol. I counseled patient regarding warning signs for need to return to the psychiatric emergency room as part of a general safety plan. Results Blood Pressure 123 / 66 Vital Signs Date Time Temp Pulse Resp B/P (MAP) Pulse Ox O2 Delivery O2 Flow Rate FiO2 07/21/17 06:18 98.2 105 18 123/66 (85) 95 Laboratory Tests Test 07/20/17 11:07 Laboratory Results Test 07/18/17 09:18 Cholesterol Level 142 MG/DL (120-200) HDL Cholesterol 73.7 MG/DL (40.0-60.0) Hemoglobin A1c 5.8 % (4.3-6.0) LDL Cholesterol 46 MG/DL (0-99) Triglycerides Level 114 MG/DL (42-150) Summary of Procedures None done Imaging None done Pending results at discharge: No Medications # of Antipsychotic meds at D/C: 1 Approp Antipsych med options 1 - Minimum of three failed multiple trials of monotherapy. 2 - Documented plan to taper to monotherapy due to previous use of multiple meds OR cross-taper in progress at D/C. 3 - Documentation of augmentation of Clozapine. 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 Escitalopram (Escitalopram) 10 Mg Tab 10 MG PO DAILY for Mental Health for 15 Days, #15 TAB 1 Refill Haloperidol (Haloperidol) 5 Mg Tab 5 MG PO BID for Mental Health for 15 Days, #30 TAB 1 Refill Discuss with outpatient provider how to taper oral Haldol now that you are on Haldol Decanoate injection. Be sure to get your next Haldol Decanoate injection. [Benztropine] () 2 MG TAB 2 MG PO Q12HR for Side effect management for 15 Days, 1 Refill [guaiFENesin ER] () 600 MG TABCR 600 MG PO BID PRN for COUGH for 15 Days, 1 Refill Discharge Time <= 30 minutes Mental Status Examination Appearance: Appropriate Consciousness: Alert Orientation: x4 Motor Activity: Other (no abnormal motor movements noted) Speech: Unremarkable Language: Adequate Fund of Knowledge: Adequate Attention and Concentration: Adequate Memory: Unremarkable (intact on clinical exam) Mood: Appropriate, Other (improved versus admission) Affect: Appropriate (full and reactive) Thought Process & Associations: Logical, Goal directed, Linear Hallucination Type: None Delusion Type: None Suicidal Ideation: No Suicidal Plan: No Suicidal Intention: No Homicidal Ideation: No Homicidal Plan: No Homicidal Intention: No Insight: Adequate Judgment: Adequate Discharge/Advance Care Plan Health Problems: (1) Other psychotic disorder not due to a substance or known physiological condition (2) Polysubstance abuse Goals to promote your health * To prevent worsening of your condition and complications * To maintain your health at the optimal level Directions to meet your goals Take your medications as prescribed Follow your dietary instruction Follow activity as directed Keep your appointments as scheduled Take your immunizations and boosters as scheduled If your symptoms worsen call your PCP, if no PCP go to Urgent Care Center or Emergency Room For 26/04 questions related to your inpatient stay or results of tests pending at discharge, please contact Dr. Avila Walsh at Smoking is Dangerous to Your Health. Avoid second hand smoking Avila Walsh MD Jul 21, 2017 12:06
[2017-07-21] MEDS ORDERED: HALOPERIDOL DECANOATE 50 MG/ML VIAL IM SCH (13:00)
== END 2017-07-21 14:15 | disposition home or self-care (01) | DRG 885 ==
LOC: NEDAMB 21:16 → NEDA 07-17 13:01 → H270 07-17 15:00
PROVIDERS: ADMIT Psychiatry & Neurology Psychiatry; ATTEND Psychiatry & Neurology Psychiatry
DX: F29 Unspecified psychosis not due to a substance or known physiological condition (principal); F14.20 Cocaine dependence, uncomplicated; I10 Essential (primary) hypertension; F15.20 Other stimulant dependence, uncomplicated; Z91.14 Patient's other noncompliance with medication regimen; F10.20 Alcohol dependence, uncomplicated; F12.20 Cannabis dependence, uncomplicated; Z81.8 Family history of other mental and behavioral disorders; F60.2 Antisocial personality disorder; M19.90 Unspecified osteoarthritis, unspecified site; Z96.659 Presence of unspecified artificial knee joint; Z72.0 Tobacco use; R45.850 Homicidal ideations; Z23 Encounter for immunization
CPT/HCPCS: 80048; 80061; 80074; 80307; 83036; 86703; 90686; 93005; J1631; Q2038

== ENCOUNTER 2017-07-30 20:41 | Inpatient (IN) | payer OTHER ==
[~2017-07-30] VITALS: Ht 177.8 cm; Wt 65.4 kg
[~2017-07-30 20:41] MED LIST changes: -ALBUAER3 INH; -AZIT250T3 PO; +Benztropine PO; +ESCI10TA PO; -GUAI600T11 PO; +HALO100P IM; +HALO5TAB PO; -PRED50 PO; -RISP1 PO; +guaiFENesin ER PO
[2017-07-30 20:55] VITALS: BP 140/84; PULSE 83; RESP 16; TEMP 97.9; O2SAT 98
[2017-07-30 22:25] LABS: AUTOMATED NEUTROPHIL # 3.7 TH/MM3 (1.8-7.7); BASOPHIL % 0.5 % (0.0-2.0); EOSINOPHIL % 0.7 % (0.0-4.0); HEMATOCRIT 33.3 % (39.0-51.0); HEMO FLAGS DIFF FINAL; LYMPH % 26.1 % (9.0-44.0); LYMPHOCYTE # 1.5 TH/MM3 (1.0-4.8); MEAN CELL VOLUME 90.4 FL (80.0-100.0); MEAN CORPUSCULAR HEMOGLOBIN 31.3 PG (27.0-34.0); MEAN CORPUSCULAR HGB CONC 34.7 % (32.0-36.0); MONO % 7.3 % (0.0-8.0); NEUT % 65.4 % (16.0-70.0); PLATELET COUNT 368 TH/MM3 (150-450); RED BLOOD COUNT 3.69 MIL/MM3 (4.50-5.90); RED CELL DISTRIBUTION WIDTH 13.5 % (11.6-17.2); WHITE BLOOD COUNT 5.7 TH/MM3 (4.0-11.0)
[2017-07-30 22:35] LABS: ANION GAP 9 MEQ/L (5-15); AST (GOT) 24 U/L (15-37); BICARBONATE 26.3 MEQ/L (21.0-32.0); BLOOD UREA NITROGEN 18 MG/DL (7-18); CHLORIDE 108 MEQ/L (98-107); GLOMERULAR FILTRATION RATE 76 ML/MIN (>89); POTASSIUM 4.9 MEQ/L (3.5-5.1); SODIUM (NA) 143 MEQ/L (136-145)
[2017-07-30 22:36] LABS: ACETAMINOPHEN LESS THAN 2.0 MCG/ML (10.0-30.0); ALT (GPT) 21 U/L (12-78)
[2017-07-30 22:38] LABS: ALKALINE PHOSPHATASE 57 U/L (45-117); TOTAL BILIRUBIN ADULT 0.2 MG/DL (0.2-1.0)
[2017-07-30 22:40] LABS: ALCOHOL 5 MG/DL (0-5)
--- NOTE | 2017-07-30 22:42 | PD ---
HPI Chief Complaint: Psychiatric Symptoms Time Seen by Provider: 21:01 Travel History International Travel<30 days: No Contact w/Intl Traveler<30days: No Traveled to known affect area: No History of Present Illness HPI brought in by PD A BAL ACT. PATIENT STATES THAT HE HEARS VOICES TELLING HIM TO SEEK REVENGE FOR HIS SISTER BY KILLING THE MAN THAT KILLED HIS SISTER. DENIES SI AT THIS TIME, DOES ADMIT TO USING SUBSSTANCES SUCH ALCOHOL TODAY. PFSH Past Medical History Hx Anticoagulant Therapy: No Arthritis: Yes Asthma: No Autoimmune Disease: No Bipolar Disorder: Yes Depression: Yes Heart Rhythm Problems: No Cancer: No Cardiac Catheterization: Yes Cardiovascular Problems: Yes Chemotherapy: No Chest Pain: Yes Congestive Heart Failure: No COPD: No Cerebrovascular Accident: No Diabetes: No Diminished Hearing: No Endocrine: No Gastrointestinal Disorders: Yes Genitourinary: No Headaches: No Heparin Induced Thrombocytopen: Yes Hypertension: Yes Immune Disorder: No Musculoskeletal: Yes (knee replacement) Neurologic: Yes Psychiatric: Yes (Hx of treatment for Bipolar Disorder) Reproductive: No Respiratory: No Immunizations Current: Yes Schizophrenia: Yes Past Surgical History Abdominal Surgery: Yes (HERNIA REPAIR) AICD: No Arteriovenous Shunt: No Coronary Artery Bypass Graft: No Insulin Pump: No Joint Replacement: No Pacemaker: No Social History Alcohol Use: Yes (beers) Tobacco Use: Yes (PPD ) Substance Use: Yes (MJ(TODAY) COAAINE (TODAY)) Allergies-Medications (Allergen,Severity, Reaction): Coded Allergies: No Known Allergies (Verified , 07/16/17) Reported Meds & Prescriptions Reported Meds & Active Scripts Active Review of Systems Except as stated in HPI: all other systems reviewed are Neg General / Constitutional: No: Fever Eyes: No: Visual changes HENT: No: Headaches Cardiovascular: No: Chest Pain or Discomfort Respiratory: No: Shortness of Breath Gastrointestinal: No: Abdominal Pain Genitourinary: No: Dysuria Musculoskeletal: No: Pain Skin: No Rash Neurologic: No: Weakness Psychiatric: Positive: Suicidal Ideations Endocrine: No: Polydipsia Hematologic/Lymphatic: No: Easy Bruising Physical Exam Narrative GENERAL: SKIN: Warm and dry. HEAD: Atraumatic. Normocephalic. EYES: Pupils equal and round. No scleral icterus. No injection or drainage. ENT: No nasal bleeding or discharge. Mucous membranes pink and moist. NECK: Trachea midline. No JVD. CARDIOVASCULAR: Regular rate and rhythm. RESPIRATORY: No accessory muscle use. Clear to auscultation. Breath sounds equal bilaterally. GASTROINTESTINAL: Abdomen soft, non-tender, nondistended. MUSCULOSKELETAL: Extremities without clubbing, cyanosis, or edema. No obvious deformities. NEUROLOGICAL: Awake and alert. No obvious cranial nerve deficits. Motor grossly within normal limits. Five out of 5 muscle strength in the arms and legs. Normal speech. PSYCHIATRIC: DEPRESSED mood and SAD affect; Data Data Last Documented VS Vital Signs Date Time Temp Pulse Resp B/P (MAP) Pulse Ox O2 Delivery O2 Flow Rate FiO2 07/31/17 09:30 76 18 123/76 (92) Room Air 07/31/17 00:40 98.6 98 Orders Orders Complete Blood Count With Diff (07/30/17 21:01) Comprehensive Metabolic Panel (07/30/17 21:01) Psych Screen (07/30/17 21:01) Drug Screen, Random Urine (07/30/17 21:01) Alcohol (Ethanol) (07/30/17 21:01) Salicylates (Aspirin) (07/30/17 21:01) Tylenol (Acetaminophen) (07/30/17 21:01) Ct Abd/Pel W/O Iv Contrast (07/30/17 22:28) Diet Regular Basic (07/31/17 Breakfast) Diet Regular Basic (07/31/17 Lunch) Admit Order (Ed Use Only) (07/31/17 14:53) Labs Laboratory Tests Test 07/30/17 21:30 07/30/17 21:35 White Blood Count 5.7 TH/MM3 Red Blood Count 3.69 MIL/MM3 Hemoglobin 11.6 GM/DL Hematocrit 33.3 % Mean Corpuscular Volume 90.4 FL Mean Corpuscular Hemoglobin 31.3 PG Mean Corpuscular Hemoglobin Concent 34.7 % Red Cell Distribution Width 13.5 % Platelet Count 368 TH/MM3 Mean Platelet Volume 6.4 FL Neutrophils (%) (Auto) 65.4 % Lymphocytes (%) (Auto) 26.1 % Monocytes (%) (Auto) 7.3 % Eosinophils (%) (Auto) 0.7 % Basophils (%) (Auto) 0.5 % Neutrophils # (Auto) 3.7 TH/MM3 Lymphocytes # (Auto) 1.5 TH/MM3 Monocytes # (Auto) 0.4 TH/MM3 Eosinophils # (Auto) 0.0 TH/MM3 Basophils # (Auto) 0.0 TH/MM3 CBC Comment DIFF FINAL Differential Comment Blood Urea Nitrogen 18 MG/DL Creatinine 1.19 MG/DL Random Glucose 83 MG/DL Total Protein 6.7 GM/DL Albumin 2.9 GM/DL Calcium Level 8.8 MG/DL Alkaline Phosphatase 57 U/L Aspartate Amino Transf (AST/SGOT) 24 U/L Alanine Aminotransferase (ALT/SGPT) 21 U/L Total Bilirubin 0.2 MG/DL Sodium Level 143 MEQ/L Potassium Level 4.9 MEQ/L Chloride Level 108 MEQ/L Carbon Dioxide Level 26.3 MEQ/L Anion Gap 9 MEQ/L Estimat Glomerular Filtration Rate 76 ML/MIN Salicylates Level LESS THAN 1.7 MG/DL Acetaminophen Level LESS THAN 2.0 MCG/ML Ethyl Alcohol Level 5 MG/DL Urine Opiates Screen NEG Urine Barbiturates Screen NEG Urine Amphetamines Screen NEG Urine Benzodiazepines Screen NEG Urine Cocaine Screen POS Urine Cannabinoids Screen POS MDM Medical Decision Making Medical Screen Exam Complete: Yes Emergency Medical Condition: Yes Medical Record Reviewed: Yes Differential Diagnosis INGESTIONS V ANEMIA V DEHYDRATION V ELECTROLYTE ABNL Narrative Course NO EVIDENCE OF ANEMIA/DEHYDRATION OR ELECTRL ABNL TO CAUSE PATIENT'S SYMPTOMS HOWEVER TOX SCREEN POSITIVE FOR MARIJUANA, COCAINE AND ALCOHOL. PATIENT IS MEDICALLY CLEARED FOR FURTHER PSYCH CARE Diagnosis Primary Impression: BAL ACT MEDICALLY CLEARED Additional Impression: POLYSUBSTANCE USE Scripts Haloperidol Decanoate Inj (Haldol Decanoate Inj) 100 Mg/Ml Inj 100 MG IM Q28D for Mental Health, #1 VIAL 0 Refills This dose of Haldol Dec is due on 08/18/2017. Prov: Avila Walsh MD 08/02/17 [Benztropine] 2 MG TAB No Conflict Check 2 MG PO Q12HR for Side effect management for 15 Days, 1 Refill Prov: Avila Walsh MD 08/02/17 Haloperidol (Haloperidol) 5 Mg Tab 5 MG PO BID for Mental Health for 15 Days, #30 TAB 1 Refill Discuss with outpatient provider how to taper oral Haldol now that you are on Haldol Decanoate injection. Be sure to get your next Haldol Decanoate injection. Prov: Avila Walsh MD 08/02/17 Escitalopram (Escitalopram) 10 Mg Tab 10 MG PO DAILY for Mental Health for 15 Days, #15 TAB 1 Refill Prov: Avila Walsh MD 08/02/17 Marcos Stanton MD Jul 30, 2017 22:42
--- NOTE | 2017-07-30 22:52 | RADRPT ---
EXAM DATE/TIME: 07/30/2017 22:37 [facility] COMPARISON: No previous studies available for comparison. INDICATIONS : Abdominal pain. ORAL CONTRAST: No oral contrast ingested. RADIATION DOSE: 4.94 CTDIvol (mGy) MEDICAL HISTORY : Myocardial infarction. Cardiovascular disease Hypertension.substance abuse SURGICAL HISTORY : knee replacement ENCOUNTER: Initial ACUITY: 1 day PAIN SCALE: 4/10 LOCATION: abdomen TECHNIQUE: Volumetric scanning of the abdomen and pelvis was performed. Using automated exposure control and ad justment of the mA and/or kV according to patient size, radiation dose was kept as low as reasonably achievable to obtain optimal diagnostic quality images. DICOM format image data is available electro nically for review and comparison. FINDINGS: There is some distal airway disease at both lung bases some peribronchial thickening and minimal bron chiectasis, left greater than right. Mild scoliosis. No acute findings in the liver, spleen, adrenals, kidneys or pancreas. Mild constipation. No free air or free fluid. No adenopathy identified. No acute bony abnormality. CONCLUSION: 1. Distal airway disease at the lung bases with minimal bronchiectasis and peribronchial thickening. Differential diagnosis includes post-aspiration changes. 2. No acute findings within the abdomen and pelvis. Mild constipation. No renal calculi or evidence f or obstructive uropathy. Rocco Gagnon MD on July 30, 2017 at 22:46 Board Certified Radiologist. This report was verified electronically.
[2017-07-31 00:40] VITALS: BP 141/71; PULSE 78; RESP 16; TEMP 98.6; O2SAT 98
[2017-07-31 09:30] VITALS: BP 123/76; PULSE 76; RESP 18
[2017-07-31] MEDS ORDERED: FLUMAZENIL 0.5 MG/5 ML VIAL IV PUSH PRN (15:00)
[2017-07-31] MEDS ORDERED: MAGNESIUM HYDROXIDE SUSP 30 ML CUP PO PRN (15:00)
[2017-07-31] MEDS ORDERED: LORazepam 1 MG TAB PO PRN (15:00)
[2017-07-31] MEDS ORDERED: LORazepam 2 MG/ML VIAL IV PUSH PRN ×4 (15:00)
[2017-07-31] MEDS ORDERED: LORazepam 2 MG TAB PO PRN (15:00)
[2017-07-31] MEDS ORDERED: ALUMINUM/MAGNESIUM/SIMETH 30 ML CUP PO PRN (15:00)
[2017-07-31] MEDS ORDERED: ACETAMINOPHEN 325 MG TAB PO PRN (15:00)
--- NOTE | 2017-07-31 15:12 | HHI.HP ---
Provisional Diagnosis Admission Date Jul 31, 2017 at 14:58 [place]. Adjustment disorder with depressed mood Certification of Person's Competence To Provide Express and Informed Consent I have personally examined Олег Austin , a person being served at [facility] on, Jul 31, 2017 15:02. Express and informed consent means consent voluntarily given in writing, by a competent person, after sufficient explanation and disclosure of the subject matter involved to enable the person to make a knowing and willful decision without any element of force, fraud, deceit, duress, or other form of constraint or coercion. This person is 18 years of age or older, is not now known to be incompetent to consent to treatment with a guardian advocate, and does not have a health care surrogate or proxy currently making medical treatment decisions. I have found this person to be one of the following: [X] Competent to provide express and informed consent, as defined above, for voluntary admission to this facility and is competent to provide express and informed consent for treatment. He/she has the consistent capacity to make well reasoned, willful, and knowing decisions concerning his or her medical or mental health treatment. The person fully and consistently understands the purpose of the admission for examination/placement and is fully capable of personally exercising all rights [place] Incompetent to provide express and informed consent to voluntary admission, and this is incompetent to provide express and informed consent to treatment. The person must be transferred to involuntary status and a petition for a guardian advocate filed with the Circuit Court. [] Refusing to provide express and informed consent to voluntary admission but is competent to provide express and informed consent for treatment. The person must be discharged or transferred to involuntary status. Form shall be completed within 24 hours of a person's arrival at the receiving facility and filed in the clinical record of each person: 1. Admitted on a voluntary basis 2. Permitted to provide express and informed consent to his/her own treatment 3. Allowed to transfer from involuntary to voluntary status 4. Prior to permitting a person to consent to his or her own treatment after having been previously found incompetent to consent to treatment. History of Present Illness Capacity: Has Capacity HPI 57-year-old male brought in under a Guillen act. According to the Guillen act, the patient indicated he was going through "an episode" and felt like harming or killing someone. He also reported hearing voices in his head to get revenge for "his sister". He was reported by law enforcement to suffer from bipolar disorder. Additionally, according to the nursing screen was obtained last night , the patient has been experiencing auditory hallucinations for "some time now" . They have reportedly become worse and he again described hearing voices telling him to harm people on the street and to go after the person that murdered his sister. The patient indicated he needed some help and wanted to get the voices to stop. He denied suicidal ideation. He denied delusions. He just repeatedly described wanting to hurt another person and the voices telling him to kill this other person. The patient reportedly attends treatment at [facility] and is compliant with his medicines. However, he also admits to being a daily drinker of alcohol and was recently admitted to this facility for unspecified psychosis. He did consume alcohol earlier on the day of this admission. He described being compliant with his medicines. Upon interview, the patient reiterates that he does have thoughts of killing another person as a result of experiencing these auditory hallucinations. These auditory hallucinations are command and nature and the patient is unable to contract for safety. Review of Systems Except as stated in HPI: all other systems reviewed are Neg Past Psych History Psychological trauma history Patient apparently admitted to this facility earlier this month. He also admits to treatment in the past for alcohol abuse. Violence risk - others (6 mos) High Violence risk - self (6 mos) Moderate to high. Substance Abuse History Drugs/Alcohol past 12 months History of alcohol abuse. Toxicology noted to be positive for cocaine and cannabinoids. Past Family Social History Coded Allergies: No Known Allergies (Verified , 07/16/17) Active Scripts Haloperidol Decanoate Inj (Haldol Decanoate Inj) 100 Mg/Ml Inj, 100 MG IM Q28D for Mental Health, #1 VIAL 0 Refills This dose of Haldol Dec is due on 08/18/2017. Prov:Avila Walsh MD 07/21/17 [guaiFENesin ER] 600 MG TABCR No Conflict Check, 600 MG PO BID Y for COUGH for 15 Days, 1 Refill Prov:Avila Walsh MD 07/21/17 [Benztropine] 2 MG TAB No Conflict Check, 2 MG PO Q12HR for Side effect management for 15 Days, 1 Refill Prov:Avila Walsh MD 07/21/17 Haloperidol (Haloperidol) 5 Mg Tab, 5 MG PO BID for Mental Health for 15 Days, # 30 TAB 1 Refill Discuss with outpatient provider how to taper oral Haldol now that you are on Haldol Decanoate injection. Be sure to get your next Haldol Decanoate injection. Prov:Avila Walsh MD 07/21/17 Escitalopram (Escitalopram) 10 Mg Tab, 10 MG PO DAILY for Mental Health for 15 Days, #15 TAB 1 Refill Prov:Avila Walsh MD 07/21/17 Current Medications Medications (Trade) Dose Ordered Sig/Celestino Route Start Time Stop Time Status Last Admin (Tylenol) 650 mg Q4H PRN PO 07/31/17 15:00 UNV (Milk Of Magnesia Liq) 30 ml DAILY PRN PO 07/31/17 15:00 UNV (Mag-Al Plus Susp Liq) 30 ml Q6H PRN PO 07/31/17 15:00 UNV (Romazicon Inj) 0.2 mg Q1M PRN IV PUSH 07/31/17 15:00 UNV (Ativan) 1 mg Q4H PRN PO 07/31/17 15:00 UNV (Ativan Inj) 1 mg Q4H PRN IV PUSH 07/31/17 15:00 UNV (Ativan) 2 mg Q2H PRN PO 07/31/17 15:00 UNV (Ativan Inj) 2 mg Q2H PRN IV PUSH 07/31/17 15:00 UNV (Ativan Inj) 2 mg Q1H PRN IV PUSH 07/31/17 15:00 UNV (Ativan Inj) 2 mg Q15M PRN IV PUSH 07/31/17 15:00 UNV Family Psych History Patient denies family history of psychotic illness. Social History Patient currently unemployed. He lives with his brother intermittently. He self admits to abusing alcohol. His toxicology screen is positive for cocaine and cannabinoids. Patient's Strengths (min. 2) Verbal and has access to healthcare. Physical Exam GENERAL: SKIN: Warm and dry. HEAD: Normocephalic. EYES: No scleral icterus. No injection or drainage. NECK: Supple, trachea midline. No JVD or lymphadenopathy. CARDIOVASCULAR: Regular rate and rhythm without murmurs, gallops, or rubs. RESPIRATORY: Breath sounds equal bilaterally. No accessory muscle use. GASTROINTESTINAL: Abdomen soft, non-tender, nondistended. MUSCULOSKELETAL: No cyanosis, or edema. BACK: Nontender without obvious deformity. No CVA tenderness. Vital Signs Vital Signs Date Time Temp Pulse Resp B/P (MAP) Pulse Ox O2 Delivery O2 Flow Rate FiO2 07/31/17 09:30 76 18 123/76 (92) Room Air 07/31/17 00:40 98.6 98 Lab Results Test 07/30/17 21:30 07/30/17 21:35 White Blood Count 5.7 TH/MM3 Red Blood Count 3.69 MIL/MM3 Hemoglobin 11.6 GM/DL Hematocrit 33.3 % Mean Corpuscular Volume 90.4 FL Mean Corpuscular Hemoglobin 31.3 PG Mean Corpuscular Hemoglobin Concent 34.7 % Red Cell Distribution Width 13.5 % Platelet Count 368 TH/MM3 Mean Platelet Volume 6.4 FL Neutrophils (%) (Auto) 65.4 % Lymphocytes (%) (Auto) 26.1 % Monocytes (%) (Auto) 7.3 % Eosinophils (%) (Auto) 0.7 % Basophils (%) (Auto) 0.5 % Neutrophils # (Auto) 3.7 TH/MM3 Lymphocytes # (Auto) 1.5 TH/MM3 Monocytes # (Auto) 0.4 TH/MM3 Eosinophils # (Auto) 0.0 TH/MM3 Basophils # (Auto) 0.0 TH/MM3 CBC Comment DIFF FINAL Differential Comment Blood Urea Nitrogen 18 MG/DL Creatinine 1.19 MG/DL Random Glucose 83 MG/DL Total Protein 6.7 GM/DL Albumin 2.9 GM/DL Calcium Level 8.8 MG/DL Alkaline Phosphatase 57 U/L Aspartate Amino Transf (AST/SGOT) 24 U/L Alanine Aminotransferase (ALT/SGPT) 21 U/L Total Bilirubin 0.2 MG/DL Sodium Level 143 MEQ/L Potassium Level 4.9 MEQ/L Chloride Level 108 MEQ/L Carbon Dioxide Level 26.3 MEQ/L Anion Gap 9 MEQ/L Estimat Glomerular Filtration Rate 76 ML/MIN Salicylates Level LESS THAN 1.7 MG/DL Acetaminophen Level LESS THAN 2.0 MCG/ML Ethyl Alcohol Level 5 MG/DL Urine Opiates Screen NEG Urine Barbiturates Screen NEG Urine Amphetamines Screen NEG Urine Benzodiazepines Screen NEG Urine Cocaine Screen POS Urine Cannabinoids Screen POS Mental Status Examination Appearance: Appropriate Consciousness: Alert Orientation: x4 Motor Activity: Normal gait Speech: Unremarkable Language: Adequate Fund of Knowledge: Adequate Attention and Concentration: Adequate Memory: Unremarkable Mood: Sad Affect: Sad Thought Process & Associations: Intact Thought Content: Appropriate Hallucination Type: None Delusion Type: None Suicidal Ideation: No Suicidal Plan: No Suicidal Intention: No Homicidal Ideation: Yes Homicidal Plan: Yes Homicidal Intention: No Insight: Adequate Judgment: Adequate Assessment & Plan Problem List: (1) Adjustment disorder with depressed mood ICD Codes: F43.21 - Adjustment disorder with depressed mood Assessment & Plan Estimated LOS: days. 57-year-old male brought in under a Guillen act initiated by law enforcement for hearing voices and having homicidal ideation. It is difficult for this physician to determine if the patient's problem is primarily due to bipolar disorder, as he indicates, or substance abuse as he is positive for cocaine, cannabinoids and alcohol. In either case, the patient is reporting command auditory hallucinations telling him to harm someone else and he identifies this person as the individual who killed his sister. Because of this danger to others, he is being admitted for evaluation and treatment. This physician has ordered a CBC and comprehensive metabolic panel to determine if the patient has any infectious process or metabolic process which is causing or contributing to his depression and/or hallucinations. Also ordered are thyroid stimulating hormone levels, hemoglobin A1c levels, vitamin B-12 and vitamin D levels. These laboratory results are being obtained to determine if the patient has deficiencies in these areas which may be contributing to his depression and complaints of psychosis. This physician has also ordered an EKG to determine the patient's cardiac conduction status and whether he can tolerate the Haldol that has been already prescribed for him. Any significant alteration in cardiac conduction makes the administration of Haldol to dangerous. Finally, this physician spoke with the patient's nurse, Mercedes, regarding his recent behavior. This physician is also asking case management to become involved with further information gathering and disposition planning. Magen Colón MD Jul 31, 2017 15:12
[2017-07-31 17:45] VITALS: BP 131/81; PULSE 65; RESP 18; TEMP 97.3; O2SAT 99
[2017-07-31] MEDS: HALOPERIDOL 5 MG TAB PO SCH (20:44)
[2017-07-31] MEDS: BENZTROPINE MESYLATE 2 MG TAB PO SCH (20:44)
[2017-08-01 05:36] VITALS: BP 123/69; PULSE 65; RESP 18; TEMP 97.3; O2SAT 99
[2017-08-01] MEDS: ESCITALOPRAM OXALATE 10 MG TAB PO SCH (09:11)
[2017-08-01] MEDS: HALOPERIDOL 5 MG TAB PO SCH ×2 (09:11→20:26)
[2017-08-01] MEDS: BENZTROPINE MESYLATE 2 MG TAB PO SCH ×2 (09:11→20:26)
[2017-08-01 10:39] LABS: AUTOMATED NEUTROPHIL # 1.3 TH/MM3 (1.8-7.7); BASOPHIL % 0.6 % (0.0-2.0); EOSINOPHIL # 0.1 TH/MM3 (0-0.4); HEMO FLAGS DIFF FINAL; LYMPH % 42.8 % (9.0-44.0); LYMPHOCYTE # 1.2 TH/MM3 (1.0-4.8); MEAN CELL VOLUME 91.5 FL (80.0-100.0); MEAN CORPUSCULAR HEMOGLOBIN 30.9 PG (27.0-34.0); MEAN CORPUSCULAR HGB CONC 33.8 % (32.0-36.0); MONO % 7.9 % (0.0-8.0); NEUT % 46.7 % (16.0-70.0); PLATELET COUNT 388 TH/MM3 (150-450); RED BLOOD COUNT 4.26 MIL/MM3 (4.50-5.90); RED CELL DISTRIBUTION WIDTH 13.8 % (11.6-17.2); WHITE BLOOD COUNT 2.7 TH/MM3 (4.0-11.0)
[2017-08-01 11:22] LABS: ALT (GPT) 22 U/L (12-78); ANION GAP 5 MEQ/L (5-15); AST (GOT) 22 U/L (15-37); BICARBONATE 29.9 MEQ/L (21.0-32.0); BLOOD UREA NITROGEN 19 MG/DL (7-18); CHLORIDE 103 MEQ/L (98-107); GLOMERULAR FILTRATION RATE 77 ML/MIN (>89); POTASSIUM 4.6 MEQ/L (3.5-5.1); SODIUM (NA) 138 MEQ/L (136-145)
[2017-08-01 11:48] LABS: ALKALINE PHOSPHATASE 66 U/L (45-117); HDL CHOLESTEROL 66.7 MG/DL (40.0-60.0); LDL CHOLESTEROL 43 MG/DL (0-99); TOTAL BILIRUBIN ADULT 0.2 MG/DL (0.2-1.0)
--- NOTE | 2017-08-01 13:33 | HHI.PYPN ---
Subjective Remarks Patient was seen and case discussed with nursing. Nursing notes a history of malingering. Patient says that the voices are still there and telling him to hurt the killer of his sister. Though, he denies any ideation intent or plan of doing so. Largely seclusive to his room. Eating and sleeping well. Compliant with his medications. No other delusions or psychotic symptoms were elicited. CBC was repeated today and shows leukopenia and neutropenia. This is different from his result yesterday and it will be repeated today before we consult medicine Mental Status Examination Appearance: Appropriate Consciousness: Alert Orientation: x4 Motor Activity: Normal gait Speech: Unremarkable Language: Adequate Fund of Knowledge: Adequate Attention and Concentration: Adequate Memory: Unremarkable Mood: Sad Affect: Sad Thought Process & Associations: Intact Thought Content: Appropriate Hallucination Type: None (to hurt the killer of his sister), Auditory Delusion Type: None, Paranoid Suicidal Ideation: No Suicidal Plan: No Suicidal Intention: No Homicidal Ideation: Yes Homicidal Plan: Yes Homicidal Intention: No Insight: Adequate Judgment: Adequate Results Labs Test 08/01/17 10:01 White Blood Count 2.7 TH/MM3 Red Blood Count 4.26 MIL/MM3 Hemoglobin 13.2 GM/DL Hematocrit 39.0 % Mean Corpuscular Volume 91.5 FL Mean Corpuscular Hemoglobin 30.9 PG Mean Corpuscular Hemoglobin Concent 33.8 % Red Cell Distribution Width 13.8 % Platelet Count 388 TH/MM3 Mean Platelet Volume 6.7 FL Neutrophils (%) (Auto) 46.7 % Lymphocytes (%) (Auto) 42.8 % Monocytes (%) (Auto) 7.9 % Eosinophils (%) (Auto) 2.0 % Basophils (%) (Auto) 0.6 % Neutrophils # (Auto) 1.3 TH/MM3 Lymphocytes # (Auto) 1.2 TH/MM3 Monocytes # (Auto) 0.2 TH/MM3 Eosinophils # (Auto) 0.1 TH/MM3 Basophils # (Auto) 0.0 TH/MM3 CBC Comment DIFF FINAL Differential Comment Blood Urea Nitrogen 19 MG/DL Creatinine 1.18 MG/DL Random Glucose 84 MG/DL Total Protein 7.1 GM/DL Albumin 2.9 GM/DL Calcium Level 8.8 MG/DL Alkaline Phosphatase 66 U/L Aspartate Amino Transf (AST/SGOT) 22 U/L Alanine Aminotransferase (ALT/SGPT) 22 U/L Total Bilirubin 0.2 MG/DL Sodium Level 138 MEQ/L Potassium Level 4.6 MEQ/L Chloride Level 103 MEQ/L Carbon Dioxide Level 29.9 MEQ/L Anion Gap 5 MEQ/L Estimat Glomerular Filtration Rate 77 ML/MIN Triglycerides Level 121 MG/DL Cholesterol Level 134 MG/DL LDL Cholesterol 43 MG/DL HDL Cholesterol 66.7 MG/DL Cholesterol/HDL Ratio 2.00 RATIO Vitamin B12 Level 266 PG/ML 25-Hydroxy Vitamin D Total 29.3 ng/ML Thyroid Stimulating Hormone 3rd Gen 1.170 uIU/ML Vitals/IOs Vital Signs Date Time Temp Pulse Resp B/P (MAP) Pulse Ox O2 Delivery O2 Flow Rate FiO2 08/01/17 05:36 97.3 65 18 123/69 (87) 99 07/31/17 09:30 Room Air Assessment & Plan Problem List: (1) Adjustment disorder with depressed mood ICD Codes: F43.21 - Adjustment disorder with depressed mood Assessment & Plan CBC Justification for Cont. Inpt. Patient would decompensate in a less restrictive setting Fred Cook DO Aug 01, 2017 13:32
[2017-08-01 13:59] LABS: HEMOGLOBIN A1a 1.1 %; HEMOGLOBIN A1b 1.6 %; HEMOGLOBIN Ao 84.8 %; HEMOGLOBIN LA1C 2.2 %; HEMOGLOBIN P3 5.5 %
[2017-08-01 16:56] LABS: AUTOMATED NEUTROPHIL # 1.2 TH/MM3 (1.8-7.7); BASOPHIL % 0.7 % (0.0-2.0); EOSINOPHIL # 0.1 TH/MM3 (0-0.4); EOSINOPHIL % 1.8 % (0.0-4.0); HEMATOCRIT 39.9 % (39.0-51.0); HEMO FLAGS DIFF FINAL; LYMPH % 52.9 % (9.0-44.0); LYMPHOCYTE # 1.8 TH/MM3 (1.0-4.8); MEAN CELL VOLUME 92.3 FL (80.0-100.0); MEAN CORPUSCULAR HEMOGLOBIN 29.8 PG (27.0-34.0); MEAN CORPUSCULAR HGB CONC 32.3 % (32.0-36.0); MONO % 8.6 % (0.0-8.0); PLATELET COUNT 388 TH/MM3 (150-450); RED BLOOD COUNT 4.33 MIL/MM3 (4.50-5.90); RED CELL DISTRIBUTION WIDTH 13.7 % (11.6-17.2); WHITE BLOOD COUNT 3.3 TH/MM3 (4.0-11.0)
[2017-08-01 17:01] VITALS: BP 111/65; PULSE 60; RESP 17; TEMP 97; O2SAT 97
--- NOTE | 2017-08-01 20:38 | EKG ---
Date Performed: 08/01/2017 Time Performed: 08:51:41 PTAGE: 57 years EKG: Sinus rhythm POSSIBLE RIGHT VENTRICULAR CONDUCTION DELAY SEPTAL MYOCARDIAL INFARCTION , OF INDETERMINATE AGE MODE RATE T-WAVE ABNORMALITY, CONSIDER LATERAL ISCHEMIA ABNORMAL ECG PREVIOUS TRACING : 07/17/2017 18.32 DOCTOR: Lesley Nguyen Interpretating Date/Time 08/01/2017 20:36:35
[2017-08-02 05:58] VITALS: BP 112/74; PULSE 68; RESP 17; TEMP 97.3; O2SAT 100
[2017-08-02] MEDS: BENZTROPINE MESYLATE 2 MG TAB PO SCH (08:15)
[2017-08-02] MEDS: ESCITALOPRAM OXALATE 10 MG TAB PO SCH (08:16)
[2017-08-02] MEDS: HALOPERIDOL 5 MG TAB PO SCH (08:16)
[2017-08-02] MEDS ORDERED: ESCI10TA PO (11:42)
[2017-08-02] MEDS ORDERED: Benztropine PO (11:42)
[2017-08-02] MEDS ORDERED: HALO100P IM (11:42)
[2017-08-02] MEDS ORDERED: HALO5TAB PO (11:42)
--- NOTE | 2017-08-02 11:42 | HHI.DS ---
Psychiatry Discharge Summary Inpatient Psychiatric care?: Yes Advance Directive: No Reason Not Provided: deferred by patient Mental Health AdvanceDirective: No Health Care Proxy: No Admission Admission Date Jul 31, 2017 at 14:58 Admission Diagnosis: (1) Adjustment disorder with depressed mood ICD Code: F43.21 - Adjustment disorder with depressed mood Brief History 57-year-old male brought in under a Guillen act. According to the Guillen act, the patient indicated he was going through "an episode" and felt like harming or killing someone. He also reported hearing voices in his head to get revenge for "his sister". He was reported by law enforcement to suffer from bipolar disorder. Additionally, according to the nursing screen was obtained last night , the patient has been experiencing auditory hallucinations for "some time now" . They have reportedly become worse and he again described hearing voices telling him to harm people on the street and to go after the person that murdered his sister. The patient indicated he needed some help and wanted to get the voices to stop. He denied suicidal ideation. He denied delusions. He just repeatedly described wanting to hurt another person and the voices telling him to kill this other person. The patient reportedly attends treatment at [facility] and is compliant with his medicines. However, he also admits to being a daily drinker of alcohol and was recently admitted to this facility for unspecified psychosis. He did consume alcohol earlier on the day of this admission. He described being compliant with his medicines. Upon interview, the patient reiterates that he does have thoughts of killing another person as a result of experiencing these auditory hallucinations. These auditory hallucinations are command and nature and the patient is unable to contract for safety. Tobacco Use In Past 30 Days: 5 or More Cigarettes/Day Alcohol Use: 4 or More Times Per Week Hospital Course Patient was admitted to the [facility], inpatient psychiatric unit. Appropriate precautions were in place throughout patient's hospital stay. Patient was seen and examined on the unit by psychiatry and also visited by counselor. There was no evidence of any suicidality or homicidality on the inpatient unit. The patient remained in good behavioral control. Prior to admission psychotropic medications were continued. Patient had no side effects from medications. On the day of discharge: Patient seen and examined with nurse. Chart reviewed. Case discussed with nursing staff. No behavioral issues overnight. On my examination today, the patient is requesting discharge from the inpatient psychiatric unit today. He denies any suicidal or homicidal ideation, intent or plan on direct questioning and contracts for safety. He is in good spirits and he said that his mood is much improved versus admission. He tells me that he was unable to fill his psychotropics last time because he did not have identification. I have instructed the counselor to fill the patient's medications prior to discharge today through our pharmacy, and counselor will also assist him with getting him temporary identification. No depressive or hypomanic/manic symptoms elicited. He denies any audiovisual hallucinations. No delusional material elicited. He denies side effects from medications. No physical complaints. Substance use seems to be a significant component of the patient's psychiatric issues, and I have strongly recommended that he allow us to get him to chemical dependency treatment such as residential rehabilitation today, but he has declined. I have therefore recommended ambulatory chemical dependency evaluation and treatment. Counselor reports to me that he has reached out the patient's mother, and he tells me that she has no concerns about the patient being discharged today. Weighing the relevant factors and based on the available evidence, I corporate relations manager to a reasonable degree of medical certainty that the patient does not meet criteria for involuntary psychiatric hospitalization at this time. In assessing his suicide and violence risk, although he is at lower imminent risk I do suspect there is a component of chronic risk related to his substance use, and for this reason also I have strongly recommended chemical dependency evaluation and treatment. He is requesting discharge from the inpatient psychiatric unit today, and since he does not meet criteria for involuntary psychiatric hospitalization he will be discharged with psychiatric follow-up as arranged by counselor. Patient is also to follow-up with primary care. I have reminded the patient to return to the psychiatric emergency room for any concerning psychiatric symptoms. Results Blood Pressure 112 / 74 Vital Signs Date Time Temp Pulse Resp B/P (MAP) Pulse Ox O2 Delivery O2 Flow Rate FiO2 08/02/17 05:58 97.3 68 17 112/74 (87) 100 07/31/17 09:30 Room Air Laboratory Tests Test 07/30/17 21:30 07/30/17 21:35 08/01/17 10:01 08/01/17 16:26 Red Blood Count 3.69 MIL/MM3 (4.50-5.90) 4.26 MIL/MM3 (4.50-5.90) 4.33 MIL/MM3 (4.50-5.90) Hemoglobin 11.6 GM/DL (13.0-17.0) 12.9 GM/DL (13.0-17.0) Hematocrit 33.3 % (39.0-51.0) Mean Platelet Volume 6.4 FL (7.0-11.0) 6.7 FL (7.0-11.0) 6.2 FL (7.0-11.0) Albumin 2.9 GM/DL (3.4-5.0) 2.9 GM/DL (3.4-5.0) Chloride Level 108 MEQ/L (98-107) Estimat Glomerular Filtration Rate 76 ML/MIN (>89) 77 ML/MIN (>89) Salicylates Level LESS THAN 1.7 MG/DL Acetaminophen Level LESS THAN 2.0 MCG/ML Urine Cocaine Screen POS (NEG) Urine Cannabinoids Screen POS (NEG) White Blood Count 2.7 TH/MM3 (4.0-11.0) 3.3 TH/MM3 (4.0-11.0) Neutrophils # (Auto) 1.3 TH/MM3 (1.8-7.7) 1.2 TH/MM3 (1.8-7.7) Blood Urea Nitrogen 19 MG/DL (7-18) HDL Cholesterol 66.7 MG/DL (40.0-60.0) 25-Hydroxy Vitamin D Total 29.3 ng/ML (30-100) Lymphocytes (%) (Auto) 52.9 % (9.0-44.0) Monocytes (%) (Auto) 8.6 % (0.0-8.0) Laboratory Results Test 08/01/17 10:01 Cholesterol Level 134 MG/DL (120-200) HDL Cholesterol 66.7 MG/DL (40.0-60.0) Hemoglobin A1c 5.9 % (4.3-6.0) LDL Cholesterol 43 MG/DL (0-99) Triglycerides Level 121 MG/DL (42-150) Summary of Major Lab Results Leukopenia is chronic and intermittent. Summary of Procedures None done Imaging Last Impressions Abdomen/Pelvis CT 07/30/17 0964 Signed Impressions: Service Date/Time: Sunday, July 30, 2017 22:37 - CONCLUSION: 1. Distal airway disease at the lung bases with minimal bronchiectasis and peribronchial thickening. Differential diagnosis includes post-aspiration changes. 2. No acute findings within the abdomen and pelvis. Mild constipation. No renal calculi or evidence for obstructive uropathy. Rocco Gagnon MD Pending results at discharge: No Medications # of Antipsychotic meds at D/C: 1 Approp Antipsych med options 1 - Minimum of three failed multiple trials of monotherapy. 2 - Documented plan to taper to monotherapy due to previous use of multiple meds OR cross-taper in progress at D/C. 3 - Documentation of augmentation of Clozapine. 4 - Justification other than those listed in allowable values 1-3, document here : Discharge Discharge Date: Aug 02, 2017 Discharge Diagnosis: (1) Adjustment disorder with depressed mood Diagnosis: Principal (resolved) ICD Code: F43.21 - Adjustment disorder with depressed mood (2) Polysubstance abuse Diagnosis: Secondary (counseled to quit) ICD Code: F19.10 - Other psychoactive substance abuse, uncomplicated Pt Condition on Discharge: Stable Discharge Disposition: Discharge Home Discharge Instructions Diet Instructions: As Tolerated, No Restrictions Activities you can perform: Weight Bearing as Marcio Scheduled Appointment: as per counselor's notes New Orders: CBC WITH DIFF - 1 Week Changed Medications: [Benztropine] () 2 MG TAB 2 MG PO Q12HR for Side effect management for 15 Days, 1 Refill (Changed from: [ Benztropine] (Cogentin) 2 MG TAB 2 Mg PO Q12HR Side effect management 15 Days Ref 1) Continued Medications: Escitalopram (Escitalopram) 10 Mg Tab 10 MG PO DAILY for Mental Health for 15 Days, #15 TAB 1 Refill (This prescription has been renewed) Haloperidol (Haloperidol) 5 Mg Tab 5 MG PO BID for Mental Health for 15 Days, #30 TAB 1 Refill (This prescription has been renewed) Discuss with outpatient provider how to taper oral Haldol now that you are on Haldol Decanoate injection. Be sure to get your next Haldol Decanoate injection. Haloperidol Decanoate Inj (Haldol Decanoate Inj) 100 Mg/Ml Inj 100 MG IM Q28D for Mental Health, #1 VIAL 0 Refills (This prescription has been renewed) This dose of Haldol Dec is due on 08/18/2017. Discontinued Medications: [guaiFENesin ER] () 600 MG TABCR 600 MG PO BID PRN for COUGH for 15 Days, 1 Refill Discharge Time <= 30 minutes Mental Status Examination Appearance: Appropriate Consciousness: Alert Orientation: x4 Motor Activity: Other (no motoric abnormalities noted) Speech: Unremarkable Language: Adequate Fund of Knowledge: Adequate Attention and Concentration: Adequate Memory: Unremarkable Mood: Appropriate, Good Affect: Appropriate (full and reactive) Thought Process & Associations: Intact Thought Content: Appropriate Hallucination Type: None Delusion Type: None Suicidal Ideation: No Suicidal Plan: No Suicidal Intention: No Homicidal Ideation: No Homicidal Plan: No Homicidal Intention: No Insight: Fair Judgment: Adequate (fair at best) Discharge/Advance Care Plan Health Problems: (1) Adjustment disorder with depressed mood Goals to promote your health * To prevent worsening of your condition and complications * To maintain your health at the optimal level Directions to meet your goals Take your medications as prescribed Follow your dietary instruction Follow activity as directed Keep your appointments as scheduled Take your immunizations and boosters as scheduled If your symptoms worsen call your PCP, if no PCP go to Urgent Care Center or Emergency Room For 26/04 questions related to your inpatient stay or results of tests pending at discharge, please contact Dr. Avila Walsh at Smoking is Dangerous to Your Health. Avoid second hand smoking Avila Walsh MD Aug 02, 2017 11:42
== END 2017-08-02 14:30 | disposition home or self-care (01) | DRG 881 ==
LOC: NEPD 20:41 → NEDA 07-31 14:58 → H270 07-31 17:35
PROVIDERS: ADMIT Psychiatry & Neurology Psychiatry; ATTEND Psychiatry & Neurology Psychiatry
DX: F43.21 Adjustment disorder with depressed mood (principal); D70.9 Neutropenia, unspecified; F20.9 Schizophrenia, unspecified; R45.850 Homicidal ideations; I10 Essential (primary) hypertension; F19.10 Other psychoactive substance abuse, uncomplicated; F17.210 Nicotine dependence, cigarettes, uncomplicated; Z79.899 Other long term (current) drug therapy; Z96.659 Presence of unspecified artificial knee joint
CPT/HCPCS: 74176; 80053; 80061; 80307; 82306; 82607; 83036; 84443; 85025; 93005

== ENCOUNTER 2017-08-08 01:43 | Inpatient (IN) | payer MEDICAID, OTHER ==
[~2017-08-08] VITALS: Ht 180.3 cm; Wt 67.1 kg
[~2017-08-08 01:43] MED LIST changes: -guaiFENesin ER PO
[2017-08-08 01:46] VITALS: BP 133/80; PULSE 95; RESP 18; TEMP 98.1; O2SAT 96
--- NOTE | 2017-08-08 02:21 | PD ---
HPI Chief Complaint: Psychiatric Symptoms Time Seen by Provider: 02:10 Travel History International Travel<30 days: No Contact w/Intl Traveler<30days: No Traveled to known affect area: No History of Present Illness HPI 57-year-old black male presents to emergency department requesting psychological evaluation. He states that there is a lot of things going on. He admits to drinking heavily and smoking crack cocaine. He states that he needs to be evaluated for bipolar disorder. He is having bad thoughts. He had been burning himself with a cigarette. He states that he has thoughts of harming himself and others. He denies any toxic ingestion. He denies any plan on hurting anyone. He denies any plan on hurting himself. PFSH Past Medical History Hx Anticoagulant Therapy: No Arthritis: Yes Asthma: No Autoimmune Disease: No Bipolar Disorder: Yes Anxiety: Yes Depression: Yes Heart Rhythm Problems: No Cancer: No Cardiac Catheterization: Yes Cardiovascular Problems: Yes High Cholesterol: No Chemotherapy: No Chest Pain: Yes (SD 2002) Congestive Heart Failure: No COPD: No Cerebrovascular Accident: No Diabetes: No Diminished Hearing: No Endocrine: No Gastrointestinal Disorders: Yes GERD: Yes Genitourinary: No Headaches: No Hiatal Hernia: No Heparin Induced Thrombocytopen: Yes Hypertension: Yes Immune Disorder: No Kidney Stones: No Musculoskeletal: Yes Neurologic: Yes Psychiatric: Yes Reproductive: No Respiratory: No Immunizations Current: Yes Migraines: No Radiation Therapy: No Renal Failure: No Schizophrenia: Yes Seizures: Yes Sickle Cell Disease: No Sleep Apnea: No Thyroid Disease: No Ulcer: No Past Surgical History AICD: No Arteriovenous Shunt: No Cardiac Surgery: No Coronary Artery Bypass Graft: No Ear Surgery: No Endocrine Surgery: No Eye Surgery: No Genitourinary Surgery: No Gynecologic Surgery: No Insulin Pump: No Joint Replacement: No Oral Surgery: No Pacemaker: No Thoracic Surgery: No Social History Alcohol Use: Yes (beers) Tobacco Use: Yes (PPD ) Substance Use: Yes (marijuana and cocaine) Allergies-Medications (Allergen,Severity, Reaction): Coded Allergies: No Known Allergies (Verified Adverse Reaction, Unknown, 08/08/17) Reported Meds & Prescriptions Reported Meds & Active Scripts Active Haldol Decanoate Inj (Haloperidol Decanoate) 100 Mg/Ml Inj 100 Mg IM Q28D This dose of Haldol Dec is due on 08/18/2017. [Benztropine] 2 MG Tab 2 Mg PO Q12HR 15 Days Haloperidol 5 Mg Tab 5 Mg PO BID 15 Days Discuss with outpatient provider how to taper oral Haldol now that you are on Haldol Decanoate injection. Be sure to get your next Haldol Decanoate injection. Escitalopram (Escitalopram Oxalate) 10 Mg Tab 10 Mg PO DAILY 15 Days Review of Systems General / Constitutional: No: Fever Eyes: No: Visual changes HENT: No: Headaches Cardiovascular: No: Chest Pain or Discomfort Respiratory: No: Shortness of Breath Gastrointestinal: No: Abdominal Pain Genitourinary: No: Dysuria Musculoskeletal: No: Pain Skin: No Rash Neurologic: No: Weakness Psychiatric: Positive: Anxiety, Depression, Suicidal Ideations, Disorder of Thought, Mood Disorder, Substance Abuse, Homicidal Ideation Endocrine: No: Polydipsia Hematologic/Lymphatic: No: Easy Bruising Physical Exam Narrative GENERAL: Well-nourished, well-developed patient. Smells of EtOH and appears under the influence of alcohol and drugs. SKIN: Warm and dry. HEAD: Normocephalic and atraumatic. EYES: No scleral icterus. No injection or drainage. ENT: No nasal drainage noted. Mucous membranes pink. Airway patent. NECK: Supple, trachea midline. Moves head freely without obvious discomfort. CARDIOVASCULAR: Regular rate and rhythm without murmurs, gallops, or rubs. RESPIRATORY: Breath sounds equal bilaterally. No accessory muscle use. GASTROINTESTINAL: Abdomen soft, non-tender, nondistended. EXTREMITIES: No cyanosis or edema. BACK: Nontender without obvious deformity. No CVA tenderness. NEURO: Patient is alert and oriented. no sensorimotor deficits. Nonfocal. Normal speech. PSYCH: No delusions. No auditory or visual hallucinations. Data Data Last Documented VS Vital Signs Date Time Temp Pulse Resp B/P (MAP) Pulse Ox O2 Delivery O2 Flow Rate FiO2 08/08/17 01:46 98.1 95 18 133/80 (97) 96 Room Air Orders Orders Psych Screen (08/08/17 02:10) MDM Medical Decision Making Medical Screen Exam Complete: Yes Emergency Medical Condition: Yes Medical Record Reviewed: Yes Differential Diagnosis MDM: High Differential diagnoses: Schizophrenia, schizoaffective disorder, bipolar, anxiety, depression, adjustment reaction, mood disorder NOS, ODD, depressive disorder NOS, dementia, dementia with agitation, psychosis NOS, substance induced mood disorder, DMDD, Asperger syndrome, infection,electrolyte abnormality, malingering. Narrative Course Mental health screening discussed with the patient. Psychiatric screen ordered. The patient been medically clear. This is medical clearance for psychiatric admission, substance induced mood disorder Diagnosis Primary Impression: Medical clearance for psychiatric admission Additional Impression: Drug-induced mood disorder Condition: Stable Rocco Chase Aug 08, 2017 02:21
[2017-08-08 07:12] VITALS: BP 125/75; PULSE 85; RESP 18; TEMP 98.1; O2SAT 98
[2017-08-08 12:00] VITALS: BP 130/76; PULSE 84; RESP 18; O2SAT 98
[2017-08-08 17:56] VITALS: BP 126/76; PULSE 67; RESP 18; TEMP 98.2; O2SAT 100
[2017-08-08 21:54] VITALS: BP 130/80
[2017-08-09 07:15] VITALS: BP 123/78; PULSE 63; RESP 18; TEMP 98.1; O2SAT 99
[2017-08-09 08:30] VITALS: BP 130/76; PULSE 70; RESP 18; TEMP 97; O2SAT 97
[2017-08-09] MEDS ORDERED: ACETAMINOPHEN 325 MG TAB PO PRN (12:00)
[2017-08-09] MEDS ORDERED: ALUMINUM/MAGNESIUM/SIMETH 30 ML CUP PO PRN (12:00)
[2017-08-09] MEDS ORDERED: MAGNESIUM HYDROXIDE SUSP 30 ML CUP PO PRN (12:00)
[2017-08-09] MEDS ORDERED: diphenhydrAMINE HCL 50 MG CAP PO PRN (12:00)
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
[2017-08-09] MEDS: ESCITALOPRAM OXALATE 10 MG TAB PO SCH (14:49)
[2017-08-09] MEDS: BENZTROPINE MESYLATE 2 MG TAB PO SCH (21:50)
[2017-08-09] MEDS: HALOPERIDOL 5 MG TAB PO SCH (21:51)
[2017-08-10] MEDS: traZODone HCL 50 MG TAB PO PRN ×2 (01:00→20:37)
[2017-08-10 05:57] VITALS: BP 131/82; PULSE 71; RESP 16; TEMP 97.4; O2SAT 99
[2017-08-10 08:35] LABS: AUTOMATED NEUTROPHIL # 0.9 TH/MM3 (1.8-7.7); BASOPHIL % 0.8 % (0.0-2.0); EOSINOPHIL # 0.1 TH/MM3 (0-0.4); EOSINOPHIL % 4.9 % (0.0-4.0); HEMATOCRIT 42.9 % (39.0-51.0); LYMPH % 46.6 % (9.0-44.0); LYMPHOCYTE # 1.1 TH/MM3 (1.0-4.8); MEAN CELL VOLUME 92.2 FL (80.0-100.0); MEAN CORPUSCULAR HGB CONC 32.6 % (32.0-36.0); MONO % 9.1 % (0.0-8.0); NEUT % 38.6 % (16.0-70.0); PLATELET COUNT 239 TH/MM3 (150-450); RED BLOOD COUNT 4.66 MIL/MM3 (4.50-5.90); RED CELL DISTRIBUTION WIDTH 14.1 % (11.6-17.2); WHITE BLOOD COUNT 2.4 TH/MM3 (4.0-11.0)
[2017-08-10 08:43] LABS: HEMO FLAGS AUTO DIFF
[2017-08-10] MEDS: ESCITALOPRAM OXALATE 10 MG TAB PO SCH (09:04)
[2017-08-10] MEDS: BENZTROPINE MESYLATE 2 MG TAB PO SCH (09:04)
[2017-08-10] MEDS: HALOPERIDOL 5 MG TAB PO SCH (09:04)
[2017-08-10 09:27] LABS: ANION GAP 7 MEQ/L (5-15); AST (GOT) 33 U/L (15-37); BICARBONATE 24.2 MEQ/L (21.0-32.0); BLOOD UREA NITROGEN 12 MG/DL (7-18); CHLORIDE 104 MEQ/L (98-107); GLOMERULAR FILTRATION RATE 77 ML/MIN (>89); POTASSIUM 4.2 MEQ/L (3.5-5.1); SODIUM (NA) 135 MEQ/L (136-145)
[2017-08-10 09:50] LABS: BANDS 1 % (0-6); EOSINOPHILS 6 % (0-4); NEUTROPHIL # MANUAL DIFF 0.8 TH/MM3 (1.8-7.7); POLYS (SEG NEUTROPHILS) 33 % (16-70); WBC DIFF SAMPLE 100
[2017-08-10 09:51] LABS: PLATELET ESTIMATE SMEAR NORMAL (NORMAL); PLATELET MORPHOLOGY NORMAL (NORMAL); SCAN/DIFF FINAL DIFF MANUAL
[2017-08-10 10:15] LABS: ALKALINE PHOSPHATASE 68 U/L (45-117); ALT (GPT) 26 U/L (12-78); HDL CHOLESTEROL 75.7 MG/DL (40.0-60.0); LDL CHOLESTEROL 50 MG/DL (0-99); TOTAL BILIRUBIN ADULT 0.7 MG/DL (0.2-1.0)
--- NOTE | 2017-08-10 13:25 | PD.TTN ---
Patient Problems 1. Discharge planning 2. Medication compliance 3. Knowledge deficit 4. Lack of coping skills Progress Toward Goals Provider Present: Dr. Lenin Walsh Provider Input: Pt medication regiment will be evaluated and he will be referred for substance abuse services due to ongoing issues with substance use. Nurse(s) Present: Rosa Mendoza RN Nurse(s) Input: Pt is new to the unit but was reported to be admitted for psychosis and alcohol abuse. He has presented with no behavioral problems on the unit at this time. He is compliant with medication regiment. Psychiatric Counselors Present: CHARLY Carter Psych Therapist Input: Pt is new to the unit and will be evaluated using the biopsychosocial to obtain information related to what led to admission and his current state. Group Spec/RT/OT/[place] Present: [facility] [place] Group Spec/RT/OT/[place] Input: Pt is a new admission and will be evaluated. Discharge Plan Pt will be referred for substance abuse services including possible placement at a sober living house. Documentation Scribe: CHARLY Carter Jonathan LMHC Aug 10, 2017 13:25
[2017-08-10] MEDS ORDERED: LORazepam 2 MG/ML VIAL IV PUSH PRN ×4 (15:30)
[2017-08-10] MEDS ORDERED: FLUMAZENIL 0.5 MG/5 ML VIAL IV PUSH PRN (15:30)
[2017-08-10] MEDS ORDERED: LORazepam 2 MG TAB PO PRN (15:30)
--- NOTE | 2017-08-10 15:30 | HHI.PYPN ---
Subjective Remarks Patient seen and examined with nurse. Chart reviewed. Case discussed with nursing staff. On my examination today, the patient identifies substance use as his primary issue. He says "I was hearing voices and I started drinking and the voices got worse." In addition to alcohol use, the patient reports ongoing cocaine use. Now sober, he denies AVH. Denies SI/HI. He is calm and cooperative with interview. Mood is good. Denies side effects from medications. No physical complaints besides some R hip pain, chronic. Agreeable to remaining on the unit to arrange for chem dep tx/sober living placement. Review of Systems Except as stated in HPI: all other systems reviewed are Neg Mental Status Examination Appearance: Appropriate Consciousness: Alert Orientation: x4 Motor Activity: Other (no hand tremor, no cogwheeling, no other motoric abnormalities noted) Speech: Unremarkable Language: Adequate Fund of Knowledge: Adequate Attention and Concentration: Adequate Memory: Unremarkable Mood: Good Affect: Appropriate (full and reactive) Thought Process & Associations: Logical, Goal directed, Linear Hallucination Type: None Delusion Type: None Suicidal Ideation: No Suicidal Plan: No Suicidal Intention: No Homicidal Ideation: No Homicidal Plan: No Homicidal Intention: No Insight: Fair Judgment: Impulsive Mental Status Exam Remarks No signs of GABAergic withdrawal. Results Labs Item Value Date Time White Blood Count 2.4 TH/MM3 L 08/10/17 0815 Hemoglobin 14.0 GM/DL 08/10/17 0815 Platelet Count 239 TH/MM3 08/10/17 0815 Neutrophils # (Auto) 0.9 TH/MM3 L 08/10/17 0815 Sodium Level 135 MEQ/L L 08/10/17 0815 Potassium Level 4.2 MEQ/L 08/10/17 0815 Chloride Level 104 MEQ/L 08/10/17 0815 Carbon Dioxide Level 24.2 MEQ/L 08/10/17 0815 Blood Urea Nitrogen 12 MG/DL 08/10/17 0815 Creatinine 1.18 MG/DL 08/10/17 0815 Estimat Glomerular Filtration Rate 77 ML/MIN L 08/10/17 0815 Aspartate Amino Transf (AST/SGOT) 33 U/L 08/10/17 0815 Alanine Aminotransferase (ALT/SGPT) 26 U/L 08/10/17 0815 Alkaline Phosphatase 68 U/L 11/7/17 0815 Vitamin B12 Level 274 PG/ML 08/10/17 0815 Thyroid Stimulating Hormone 3rd Gen 0.996 uIU/ML 08/10/17 0815 Labs reviewed. Worsening leukopenia/granulocytopenia noted. GFR stable. Mild hyponatremia. Urine toxicology was not obtained in the ED. I have ordered a U tox this morning which is listed as in process. Vitals/IOs Vital Signs Date Time Temp Pulse Resp B/P (MAP) Pulse Ox O2 Delivery O2 Flow Rate FiO2 08/10/17 05:57 97.4 71 16 131/82 (98) 99 08/09/17 08:30 Room Air Assessment & Plan Problem List: (1) Adjustment disorder with depressed mood ICD Codes: F43.21 - Adjustment disorder with depressed mood Status: Chronic (2) Polysubstance abuse ICD Codes: F19.10 - Other psychoactive substance abuse, uncomplicated Assessment & Plan Consult hematology for worsening leukopenia. D/c oral Haldol out of concern that this may be exacerbating leukopenia and with it d/c Cogentin. Patient already has Haldol Dec on board and would be due for a dose on 08/18. Continue Lexapro as ordered. Monitor for any signs of withdrawal, none noted presently. Continue to monitor on the inpatient unit. Continue other medications and care as ordered. Patient may sign voluntary and consent for medications. Justification for Cont. Inpt. Complicating condition. Med changes. Risk for decompensation in less restrictive environment. Discharge Planning ELOS: 3-5 days. ?Sober living. Case discussed with counselor Request HC Surrog/Guard Advoc?: No Avila Walsh MD Aug 10, 2017 15:30
[2017-08-10 17:25] VITALS: BP 116/77; PULSE 83; RESP 18; TEMP 97.6; O2SAT 98
--- NOTE | 2017-08-10 18:29 | MB ---
cc: OUSMANE KAUR M.D. DATE OF CONSULTATION 08/10/[address] Walsh REASON FOR CONSULTATION Hematology consulted to render opinion regarding patient with neutropenia. HISTORY OF PRESENT ILLNESS The patient is a 57-year-old -[place] male admitted to the psychiatric unit with auditory hallucinations. He was recently admitted to the hospital with hallucination and was started on Haldol. During this admission he was noted to have leukopenia and neutropenia with absolute neutrophil count of 800. Haldol has been discontinued. He also has history of marijuana and cocaine use. He denies any constitutional symptoms. He denies any frequent infection. Denies any mouth sore. Denies any chest pain, palpitation. He has no shortness of breath or cough. Denies any dysuria, hematuria. Denies diarrhea. PAST MEDICAL HISTORY History of bipolar disorder. He denies any liver disease. PAST SURGICAL HISTORY Hernia repair. SOCIAL HISTORY He smoked a pack a day for at least 30 years. He drinks at least a six pack a day for last 5 years. FAMILY HISTORY He has no children. He has eight siblings. No bleeding disorder. ALLERGIES NO KNOWN DRUG ALLERGIES. CURRENT MEDICATIONS 1. Thiamine. 2. Folic acid. 3. Lexapro. REVIEW OF SYSTEMS CONSTITUTIONAL: Negative. EYES: Negative. EARS, NOSE, AND THROAT: Negative. CARDIOVASCULAR: Negative. RESPIRATORY: Negative. GASTROINTESTINAL: Negative. GENITOURINARY: Negative. MUSCULOSKELETAL: Negative. HEMATOLOGY: As above. ENDOCRINE: Negative. DERMATOLOGIC: Negative. PSYCHIATRIC: As above. NEUROLOGIC: Negative. PHYSICAL EXAMINATION VITAL SIGNS: Temperature 97.6, blood pressure 116/77, O2 saturation 98%. GENERAL: He is alert and oriented times three, in no acute distress. HEENT: Atraumatic, normocephalic. Pupils equal, round and reactive to light. Extraocular muscles intact. No scleral icterus. Oropharynx dry mucosa, no lesion, no thrush, no mucositis. NECK: No thyromegaly, no palpable mass. LYMPHATICS: No palpable cervical, clavicular, axillary or inguinal lymph nodes. CARDIOVASCULAR: Regular S1, S2. No murmur. LUNGS: Clear to auscultation bilaterally. No wheezing or rhonchi. ABDOMEN: Soft, nontender. I could not palpate liver or spleen. EXTREMITIES: No clubbing, cyanosis or edema. No calf tenderness. BACK: No paravertebral tenderness. SKIN: No rash or petechiae. NEUROLOGIC: Nonfocal. LABORATORY DATA Reviewed. ASSESSMENT 1. Leukopenia and neutropenia which I think is drug induced. He has a history of fluctuating white blood cell count. His baseline white blood cell count is on low-normal side. The recent drop in white blood cell may be due to the Haldol and alcohol use. Haldol has been discontinued. Clinically he is asymptomatic and he is afebrile. He has no history of frequent infection. I recommend continue to monitor his CBC for now, anticipate WBC to improve over time now that the Haldol has been discontinued. 2. Bipolar disorder with hallucination. RECOMMENDATIONS 1. Monitor CBC. 2. Check folic acid level. Thank you Dr. Walsh for asking me to see this patient. MD HUBER Benson/RADHA /6:00 PM /6:17 PM CASTRO
--- NOTE | 2017-08-10 18:49 | EKG ---
Date Performed: 08/10/2017 Time Performed: 08:25:30 PTAGE: 57 years EKG: Sinus rhythm ST DEVIATION AND MODERATE T-WAVE ABNORMALITY, CONSIDER ANTEROLATERAL ISCHEMIA ABNORMAL ECG Compared to prior tracing no significant change PREVIOUS TRACING : 08/01/2017 08.51 DOCTOR: Melly Spaulding Interpretating Date/Time 08/10/2017 18:49:03
[2017-08-10 21:48] LABS: HEMOGLOBIN A1a 1.2 %; HEMOGLOBIN A1b 1.5 %; HEMOGLOBIN Ao 84.7 %; HEMOGLOBIN LA1C 2.3 %; HEMOGLOBIN P3 3.9 %
[2017-08-11 05:45] VITALS: BP 106/68; PULSE 83; RESP 18; TEMP 98.1
[2017-08-11 08:13] LABS: AUTOMATED NEUTROPHIL # 0.8 TH/MM3 (1.8-7.7); BASOPHIL % 0.7 % (0.0-2.0); EOSINOPHIL # 0.1 TH/MM3 (0-0.4); EOSINOPHIL % 4.6 % (0.0-4.0); HEMATOCRIT 42.1 % (39.0-51.0); LYMPH % 47.9 % (9.0-44.0); MEAN CELL VOLUME 91.7 FL (80.0-100.0); MEAN CORPUSCULAR HEMOGLOBIN 30.4 PG (27.0-34.0); MEAN CORPUSCULAR HGB CONC 33.1 % (32.0-36.0); MONO % 10.6 % (0.0-8.0); NEUT % 36.2 % (16.0-70.0); PLATELET COUNT 235 TH/MM3 (150-450); RED BLOOD COUNT 4.59 MIL/MM3 (4.50-5.90); RED CELL DISTRIBUTION WIDTH 14.1 % (11.6-17.2); WHITE BLOOD COUNT 2.2 TH/MM3 (4.0-11.0)
[2017-08-11 08:14] LABS: HEMO FLAGS AUTO DIFF
--- NOTE | 2017-08-11 08:40 | HHI.PYPN ---
Subjective Remarks Patient seen and examined. Chart reviewed. Case discussed with nursing staff. No behavioral issues overnight. On my examination today, patient is in good spirits. He is calm and cooperative with exam. He denies any suicidal or homicidal ideation. Denies any audiovisual hallucinations. No evidence of any psychotic decompensation off of oral Haldol. I have a lengthy discussion with him regarding the rationale for holding Haldol in the setting of his neutropenia. Denies side effects from medications. He feels like Lexapro is adequate for now. No physical complaints. Review of Systems Except as stated in HPI: all other systems reviewed are Neg Mental Status Examination Appearance: Appropriate Consciousness: Alert Orientation: x4 Motor Activity: Other (no motor abnormalities noted) Speech: Unremarkable Language: Adequate Fund of Knowledge: Adequate Attention and Concentration: Adequate Memory: Unremarkable Mood: Good Affect: Appropriate (remains full and reactive) Thought Process & Associations: Logical, Goal directed, Linear Thought Content: Appropriate Hallucination Type: None Delusion Type: None Suicidal Ideation: No Suicidal Plan: No Suicidal Intention: No Homicidal Ideation: No Homicidal Plan: No Homicidal Intention: No Insight: Fair Judgment: Adequate (fair) Results Labs Test 08/10/17 16:35 08/11/17 07:40 Urine Opiates Screen NEG Urine Barbiturates Screen NEG Urine Amphetamines Screen NEG Urine Benzodiazepines Screen NEG Urine Cocaine Screen POS Urine Cannabinoids Screen POS White Blood Count 2.2 TH/MM3 Red Blood Count 4.59 MIL/MM3 Hemoglobin 13.9 GM/DL Hematocrit 42.1 % Mean Corpuscular Volume 91.7 FL Mean Corpuscular Hemoglobin 30.4 PG Mean Corpuscular Hemoglobin Concent 33.1 % Red Cell Distribution Width 14.1 % Platelet Count 235 TH/MM3 Mean Platelet Volume 7.0 FL Neutrophils (%) (Auto) 36.2 % Lymphocytes (%) (Auto) 47.9 % Monocytes (%) (Auto) 10.6 % Eosinophils (%) (Auto) 4.6 % Basophils (%) (Auto) 0.7 % Neutrophils # (Auto) 0.8 TH/MM3 Lymphocytes # (Auto) 1.0 TH/MM3 Monocytes # (Auto) 0.2 TH/MM3 Eosinophils # (Auto) 0.1 TH/MM3 Basophils # (Auto) 0.0 TH/MM3 CBC Comment AUTO DIFF Labs reviewed. Neutropenia stable. Vitals/IOs Vital Signs Date Time Temp Pulse Resp B/P (MAP) Pulse Ox O2 Delivery O2 Flow Rate FiO2 08/11/17 05:45 98.1 83 18 106/68 (81) 08/10/17 17:25 98 08/09/17 08:30 Room Air Assessment & Plan Problem List: (1) Adjustment disorder with depressed mood ICD Codes: F43.21 - Adjustment disorder with depressed mood Status: Chronic (2) Polysubstance abuse ICD Codes: F19.10 - Other psychoactive substance abuse, uncomplicated Assessment & Plan Continue to hold Haldol and monitor closely for any signs of psychotic decompensation. Continue Lexapro as ordered. Hematology input noted and appreciated, and I note that the CBC has been ordered for tomorrow morning. Continue to monitor on the inpatient unit. Continue other medications and care as ordered. Justification for Cont. Inpt. Complicating conditions. Risk for decompensation. Discharge Planning Chem Dep tx/Sober living. Case d/w counselor. Request HC Surrog/Guard Advoc?: No Avila Walsh MD Aug 11, 2017 08:40
[2017-08-11 08:51] LABS: BASOPHILS 1 % (0-2); EOSINOPHILS 5 % (0-4); NEUTROPHIL # MANUAL DIFF 0.8 TH/MM3 (1.8-7.7); POLYS (SEG NEUTROPHILS) 35 % (16-70); WBC DIFF SAMPLE 100
[2017-08-11 08:52] LABS: PLATELET ESTIMATE SMEAR NORMAL (NORMAL); PLATELET MORPHOLOGY NORMAL (NORMAL); SCAN/DIFF FINAL DIFF MANUAL
[2017-08-11] MEDS: THIAMINE HCL 100 MG TAB PO SCH (09:00)
[2017-08-11] MEDS: FOLIC ACID 1 MG TAB PO SCH (09:00)
[2017-08-11] MEDS: ESCITALOPRAM OXALATE 10 MG TAB PO SCH (09:00)
--- NOTE | 2017-08-11 12:52 | PD.ONC.PN ---
Subjective Subjective Remarks No fever. No CP/SOB. Objective Data Date Time Temp Pulse Resp B/P (MAP) Pulse Ox O2 Delivery O2 Flow Rate FiO2 08/11/17 05:45 98.1 83 18 106/68 (81) 08/10/17 17:25 97.6 83 18 116/77 (90) 98 Result Diagram: 08/11/17 0740 08/10/17 0815 Laboratory Results Laboratory Tests Test 08/10/17 16:35 08/11/17 07:40 Urine Opiates Screen NEG Urine Barbiturates Screen NEG Urine Amphetamines Screen NEG Urine Benzodiazepines Screen NEG Urine Cocaine Screen POS Urine Cannabinoids Screen POS White Blood Count 2.2 TH/MM3 Red Blood Count 4.59 MIL/MM3 Hemoglobin 13.9 GM/DL Hematocrit 42.1 % Mean Corpuscular Volume 91.7 FL Mean Corpuscular Hemoglobin 30.4 PG Mean Corpuscular Hemoglobin Concent 33.1 % Red Cell Distribution Width 14.1 % Platelet Count 235 TH/MM3 Mean Platelet Volume 7.0 FL Neutrophils (%) (Auto) 36.2 % Lymphocytes (%) (Auto) 47.9 % Monocytes (%) (Auto) 10.6 % Eosinophils (%) (Auto) 4.6 % Basophils (%) (Auto) 0.7 % Neutrophils # (Auto) 0.8 TH/MM3 Lymphocytes # (Auto) 1.0 TH/MM3 Monocytes # (Auto) 0.2 TH/MM3 Eosinophils # (Auto) 0.1 TH/MM3 Basophils # (Auto) 0.0 TH/MM3 CBC Comment AUTO DIFF Differential Total Cells Counted 100 Neutrophils % (Manual) 35 % Lymphocytes % 54 % Monocytes % 5 % Eosinophils % 5 % Basophils % 1 % Neutrophils # (Manual) 0.8 TH/MM3 Differential Comment FINAL DIFF MANUAL Atypical Lymphocytes % Platelet Estimate NORMAL Platelet Morphology Comment NORMAL Administered Medications Medications (Trade) Dose Ordered Sig/Celestino Route PRN Reason Start Time Stop Time Status Last Admin Dose Admin Trazodone HCl (Desyrel) 50 mg HS PRN PO INSOMNIA 08/09/17 12:00 08/10/17 20:37 Escitalopram Oxalate (Lexapro) 10 mg DAILY PO 08/09/17 12:00 08/11/17 09:00 Thiamine HCl (Vitamin B1) 100 mg DAILY PO 08/11/17 09:00 08/11/17 09:00 Folic Acid (Folate) 1 mg DAILY PO 08/11/17 09:00 08/11/17 09:00 Objective Remarks GENERAL: Well-nourished, well-developed patient. SKIN: Warm and dry. HEAD: Normocephalic. EYES: No scleral icterus. No injection or drainage. NECK: Supple, trachea midline. No JVD or lymphadenopathy. LYMPHATIC: No adenopathy. CARDIOVASCULAR: Regular rate and rhythm without murmurs. RESPIRATORY: Breath sounds equal bilaterally. No accessory muscle use. GASTROINTESTINAL: Abdomen soft, non-tender, nondistended. EXTREMITIES: No cyanosis, or edema. MUSCULOSKELETAL: Adequate muscle tone. NEUROLOGICAL: No obvious focal deficit. Awake, alert, and oriented x3. Assessment/Plan Assessment 1. Leukopenia and neutropenia which I think is drug induced. He has a history of fluctuating white blood cell count. His baseline white blood cell count is on low-normal side. The recent drop in white blood cell may be due to the Haldol and alcohol use. Haldol has been discontinued. Clinically he is asymptomatic and he is afebrile. He has no history of frequent infection. 08/11/2017 WBC stable. Remains asymptomatic. 2. Bipolar disorder with hallucination. Plan Plan: 1. Monitor CBC. 2. Folic acid level pending. Juventino Ling MD Aug 11, 2017 12:52
[2017-08-11 17:50] VITALS: BP 120/64; PULSE 85; RESP 18; TEMP 98; O2SAT 96
[2017-08-11] MEDS: LORazepam 1 MG TAB PO PRN (23:33)
[2017-08-12] MEDS: LORazepam 1 MG TAB PO PRN (04:45)
[2017-08-12 05:44] VITALS: BP 118/77; PULSE 77; RESP 17; TEMP 97.6; O2SAT 99
[2017-08-12] MEDS: ESCITALOPRAM OXALATE 10 MG TAB PO SCH (08:57)
[2017-08-12] MEDS: THIAMINE HCL 100 MG TAB PO SCH (08:57)
[2017-08-12] MEDS: FOLIC ACID 1 MG TAB PO SCH (08:57)
--- NOTE | 2017-08-12 09:29 | HHI.PYPN ---
Subjective Remarks Patient seen and examined. Chart reviewed. Case discussed with nursing staff. On my examination today, patient complains of feeling a little more depressed today. He also reports having a good deal of anxiety, although this seems fairly inchoate and vague. He denies any AVH or other symptoms of psychotic decompensation. Remains interested in sober living, and I have encouraged him to make calls in this regard. Denies side effects from meds. No physical complaints besides some mild dizziness. Agreeable to titrating Lexapro to target mood symptoms. Review of Systems Except as stated in HPI: all other systems reviewed are Neg Mental Status Examination Appearance: Appropriate Consciousness: Alert Orientation: x4 Motor Activity: Other (No abnormal motor movements noted.) Speech: Unremarkable Language: Adequate Fund of Knowledge: Adequate Attention and Concentration: Adequate Memory: Unremarkable Mood: Other (Somewhat depressed) Affect: Blunt Thought Process & Associations: Logical, Goal directed, Linear Thought Content: Appropriate Hallucination Type: None Delusion Type: None Suicidal Ideation: No Suicidal Plan: No Suicidal Intention: No Homicidal Ideation: No Homicidal Plan: No Homicidal Intention: No Insight: Fair Judgment: Adequate (fair) Results Labs Labs reviewed. Folate level not decreased. CBC ordered by alterations expert for tomorrow. Vitals/IOs Vital Signs Date Time Temp Pulse Resp B/P (MAP) Pulse Ox O2 Delivery O2 Flow Rate FiO2 08/12/17 05:44 97.6 77 17 118/77 (91) 99 08/09/17 08:30 Room Air Assessment & Plan Problem List: (1) Adjustment disorder with depressed mood ICD Codes: F43.21 - Adjustment disorder with depressed mood Status: Chronic (2) Polysubstance abuse ICD Codes: F19.10 - Other psychoactive substance abuse, uncomplicated Assessment & Plan Titrate Lexapro to 20mg daily. Monitor for evidence of any psychotic decompensation; none noted so far. Monitor dizziness; fall prec in place. Check orthostatics. Follow up CBC ordered by alterations expert. Continue other medications and care as ordered. Justification for Cont. Inpt. Med changes. Risk for decompensation in less restrictive environment. Discharge Planning Possible sober living placement Request HC Surrog/Guard Advoc?: No Avila Walsh MD Aug 12, 2017 09:29
[2017-08-12] MEDS ORDERED: ESCITALOPRAM OXALATE 10 MG TAB PO ONE (14:30)
[2017-08-12 18:18] VITALS: BP 148/70; PULSE 68; RESP 18; TEMP 97.6; O2SAT 99
[2017-08-12] MEDS: hydrOXYzine HCL 50 MG TAB PO PRN (22:47)
[2017-08-13 05:53] VITALS: BP 116/73; PULSE 96; RESP 18; TEMP 96.9; O2SAT 99
[2017-08-13] MEDS: FOLIC ACID 1 MG TAB PO SCH (09:00)
[2017-08-13] MEDS: ESCITALOPRAM OXALATE 20 MG TAB PO SCH (09:00)
[2017-08-13] MEDS: THIAMINE HCL 100 MG TAB PO SCH (09:00)
[2017-08-13] MEDS: ESCITALOPRAM OXALATE 10 MG TAB PO SCH (09:00)
[2017-08-13 09:35] LABS: AUTOMATED NEUTROPHIL # 0.9 TH/MM3 (1.8-7.7); BASOPHIL % 1.4 % (0.0-2.0); EOSINOPHIL # 0.1 TH/MM3 (0-0.4); EOSINOPHIL % 3.1 % (0.0-4.0); HEMATOCRIT 41.1 % (39.0-51.0); LYMPH % 45.9 % (9.0-44.0); LYMPHOCYTE # 1.2 TH/MM3 (1.0-4.8); MEAN CELL VOLUME 91.9 FL (80.0-100.0); MEAN CORPUSCULAR HEMOGLOBIN 30.9 PG (27.0-34.0); MEAN CORPUSCULAR HGB CONC 33.6 % (32.0-36.0); MONO % 12.2 % (0.0-8.0); NEUT % 37.4 % (16.0-70.0); PLATELET COUNT 217 TH/MM3 (150-450); RED BLOOD COUNT 4.47 MIL/MM3 (4.50-5.90); RED CELL DISTRIBUTION WIDTH 13.8 % (11.6-17.2); WHITE BLOOD COUNT 2.5 TH/MM3 (4.0-11.0)
[2017-08-13 09:36] LABS: HEMO FLAGS AUTO DIFF
[2017-08-13 10:17] LABS: BANDS 1 % (0-6); BASOPHILS 2 % (0-2); EOSINOPHILS 1 % (0-4); NEUTROPHIL # MANUAL DIFF 1.1 TH/MM3 (1.8-7.7); PLATELET ESTIMATE SMEAR NORMAL (NORMAL); PLATELET MORPHOLOGY NORMAL (NORMAL); POLYS (SEG NEUTROPHILS) 43 % (16-70); SCAN/DIFF FINAL DIFF MANUAL; WBC DIFF SAMPLE 100
--- NOTE | 2017-08-13 10:18 | HHI.PYPN ---
Subjective Remarks Patient seen and examined with counselor and nurse. Chart reviewed. Case discussed with nurse and in treatment team. On my examination today, the patient is initially somewhat discharge focused. He says that he would go stay with his brother. We revisited his previous commitment to entering into a sober living environment, and the patient now says that he believes that he can remain abstinent from substances on his own. However, after some discussion the patient does acknowledge, "I know how I am. It won't take much to relapse, either." Patient receptive to possible sober living placement. He denies SI/ HI. Denies AVH. No delusions. Denies side effects from medications. No physical complaints. Review of Systems Except as stated in HPI: all other systems reviewed are Neg Mental Status Examination Appearance: Appropriate Consciousness: Alert Orientation: x4 Motor Activity: Other (no motor abnormalities noted) Speech: Unremarkable Language: Adequate Fund of Knowledge: Adequate Attention and Concentration: Adequate Memory: Unremarkable Mood: Appropriate Affect: Appropriate Thought Process & Associations: Logical, Goal directed, Linear Thought Content: Appropriate Hallucination Type: None Delusion Type: None Suicidal Ideation: No Suicidal Plan: No Suicidal Intention: No Homicidal Ideation: No Homicidal Plan: No Homicidal Intention: No Insight: Fair Judgment: Adequate (fair) Results Labs Test 08/13/17 08:48 White Blood Count 2.5 TH/MM3 Red Blood Count 4.47 MIL/MM3 Hemoglobin 13.8 GM/DL Hematocrit 41.1 % Mean Corpuscular Volume 91.9 FL Mean Corpuscular Hemoglobin 30.9 PG Mean Corpuscular Hemoglobin Concent 33.6 % Red Cell Distribution Width 13.8 % Platelet Count 217 TH/MM3 Mean Platelet Volume 7.2 FL Neutrophils (%) (Auto) 37.4 % Lymphocytes (%) (Auto) 45.9 % Monocytes (%) (Auto) 12.2 % Eosinophils (%) (Auto) 3.1 % Basophils (%) (Auto) 1.4 % Neutrophils # (Auto) 0.9 TH/MM3 Lymphocytes # (Auto) 1.2 TH/MM3 Monocytes # (Auto) 0.3 TH/MM3 Eosinophils # (Auto) 0.1 TH/MM3 Basophils # (Auto) 0.0 TH/MM3 CBC Comment AUTO DIFF Differential Total Cells Counted 100 Neutrophils % (Manual) 43 % Band Neutrophils % 1 % Lymphocytes % 44 % Monocytes % 9 % Eosinophils % 1 % Basophils % 2 % Neutrophils # (Manual) 1.1 TH/MM3 Differential Comment FINAL DIFF MANUAL Platelet Estimate NORMAL Platelet Morphology Comment NORMAL Red Cell Morphology Comment NORMAL Labs reviewed. ANC improving off of Haldol. Vitals/IOs Vital Signs Date Time Temp Pulse Resp B/P (MAP) Pulse Ox O2 Delivery O2 Flow Rate FiO2 08/13/17 05:53 96.9 96 18 116/73 (87) 99 08/09/17 08:30 Room Air Assessment & Plan Problem List: (1) Adjustment disorder with depressed mood ICD Codes: F43.21 - Adjustment disorder with depressed mood Status: Chronic (2) Polysubstance abuse ICD Codes: F19.10 - Other psychoactive substance abuse, uncomplicated Assessment & Plan Continue to observe off of Haldol. No evidence of psychotic decompensation off of this agent. It is possible that psychotic symptoms were wholly substance- induced. Check CBC Wednesday. Continue Lexapro as ordered. Await further hematology input. Continue to monitor on the inpatient unit. Continue other medications and care as ordered. Justification for Cont. Inpt. Risk for decompensation. Discharge Planning Anticipate d/c beginning of next week to sober living. Request HC Surrog/Guard Advoc?: No Avila Walsh MD Aug 13, 2017 10:18
--- NOTE | 2017-08-13 10:19 | PD.TTN ---
Patient Problems 1. Discharge planning 2. Medication compliance 3. Knowledge deficit 4. Lack of coping skills Progress Toward Goals Provider Present: Dr. Lenin Walsh Provider Input: Pt medication regiment will be evaluated and he will be referred for substance abuse services due to ongoing issues with substance use. 08/13 Pt medication regiment is continuing to be evaluated also for the impact that it may be having on his physical health. Pt has been referred to sober living houses and will be encouraged to follow up with these. Nurse(s) Present: Rosa Mendoza RN Nurse(s) Input: Pt is new to the unit but was reported to be admitted for psychosis and alcohol abuse. He has presented with no behavioral problems on the unit at this time. He is compliant with medication regiment. 08/13- Hien Mcfarland RN Pt has been no behavioral problem on unit, is pleasant, compliant with medication regiment, denies further hallucinations and is beginning to discuss impact of his substance abuse on his life. Psychiatric Counselors Present: CHARLY Carter Psych Therapist Input: Pt is new to the unit and will be evaluated using the biopsychosocial to obtain information related to what led to admission and his current state. 08/13- Pt appears calm, cooperative, appropriate, organized and oriented. He shows improving insight into condition and substance abuse though there is still some resistance. He appears with limited coping and emotional regulation skills which he supports as he states he has been using substances to cope. He also presents with limited relapse prevention skills. No noted agitation or aggression. He has been compliant with medication regiment and will be contacting sober living [facility] in attempt to obtain placement. Group Spec/RT/OT/[place] Present: [facility] [place], CLARIBEL Hanna Group Spec/RT/OT/[place] Input: Pt is a new admission and will be evaluated. 08/13- CLARIBEL Hanna Pt attends some groups. Discharge Plan Pt will be referred for substance abuse services including possible placement at a sober living house. Documentation Scribe: CHARLY Carter Jonathan LMHC Aug 13, 2017 10:19
[2017-08-13 18:53] VITALS: BP 120/80; PULSE 75; RESP 18; TEMP 97.7; O2SAT 99
[2017-08-14 06:15] VITALS: BP 139/75; PULSE 78; RESP 17; TEMP 97.6; O2SAT 98
[2017-08-14] MEDS: FOLIC ACID 1 MG TAB PO SCH (08:41)
[2017-08-14] MEDS: ESCITALOPRAM OXALATE 20 MG TAB PO SCH (08:41)
[2017-08-14] MEDS: THIAMINE HCL 100 MG TAB PO SCH (08:41)
--- NOTE | 2017-08-14 14:33 | HHI.PYPN ---
Subjective Remarks Patient was seen and case discussed with nursing. Patient remains on good behavior. His compliant with his medications. Denies any psychotic symptoms at this time. No complaints today. Denies suicidal or homicidal ideation intent or plan Mental Status Examination Appearance: Appropriate Consciousness: Alert Orientation: x4 Motor Activity: Other (no motor abnormalities noted) Speech: Unremarkable Language: Adequate Fund of Knowledge: Adequate Attention and Concentration: Adequate Memory: Unremarkable Mood: Appropriate Affect: Appropriate Thought Process & Associations: Logical, Goal directed, Linear Thought Content: Appropriate Hallucination Type: None Delusion Type: None Suicidal Ideation: No Suicidal Plan: No Suicidal Intention: No Homicidal Ideation: No Homicidal Plan: No Homicidal Intention: No Insight: Fair Judgment: Adequate (fair) Results Vitals/IOs Vital Signs Date Time Temp Pulse Resp B/P (MAP) Pulse Ox O2 Delivery O2 Flow Rate FiO2 08/14/17 06:15 97.6 78 17 139/75 (96) 98 Assessment & Plan Problem List: (1) Adjustment disorder with depressed mood ICD Codes: F43.21 - Adjustment disorder with depressed mood Status: Chronic (2) Polysubstance abuse ICD Codes: F19.10 - Other psychoactive substance abuse, uncomplicated Assessment & Plan Continue current treatment plan Justification for Cont. Inpt. Patient would decompensate in a less restrictive setting Request HC Surrog/Guard Advoc?: No Fred Cook DO Aug 14, 2017 14:33
[2017-08-14] MEDS: hydrOXYzine HCL 50 MG TAB PO PRN (15:14)
[2017-08-14 18:22] VITALS: BP_SYST 124; BP_SYST 133; BP_DIAS 68; BP_DIAS 81; PULSE 55; RESP 17; TEMP 97.7; O2SAT 98
[2017-08-15 05:51] VITALS: BP 131/87; PULSE 76; RESP 17; TEMP 98; O2SAT 100
[2017-08-15] MEDS: THIAMINE HCL 100 MG TAB PO SCH (08:29)
[2017-08-15] MEDS: ESCITALOPRAM OXALATE 20 MG TAB PO SCH (08:29)
[2017-08-15] MEDS: FOLIC ACID 1 MG TAB PO SCH (08:29)
--- NOTE | 2017-08-15 13:58 | HHI.PYPN ---
Subjective Remarks Patient was seen and case discussed with nursing. Patient is pleasant and cooperative with exam. Behaving well on the unit. No agitation. Eating and sleeping well. Mental Status Examination Appearance: Appropriate Consciousness: Alert Orientation: x4 Motor Activity: Other (no motor abnormalities noted) Speech: Unremarkable Language: Adequate Fund of Knowledge: Adequate Attention and Concentration: Adequate Memory: Unremarkable Mood: Appropriate Affect: Appropriate Thought Process & Associations: Logical, Goal directed, Linear Thought Content: Appropriate Hallucination Type: None Delusion Type: None Suicidal Ideation: No Suicidal Plan: No Suicidal Intention: No Homicidal Ideation: No Homicidal Plan: No Homicidal Intention: No Insight: Fair Judgment: Adequate (fair) Results Vitals/IOs Vital Signs Date Time Temp Pulse Resp B/P (MAP) Pulse Ox O2 Delivery O2 Flow Rate FiO2 08/15/17 05:51 98.0 76 17 131/87 (102) 100 Assessment & Plan Problem List: (1) Adjustment disorder with depressed mood ICD Codes: F43.21 - Adjustment disorder with depressed mood Status: Chronic (2) Polysubstance abuse ICD Codes: F19.10 - Other psychoactive substance abuse, uncomplicated Assessment & Plan Continue current treatment plan Justification for Cont. Inpt. Patient would decompensate in a less restrictive setting Request HC Surrog/Guard Advoc?: No Fred Cook DO Aug 15, 2017 13:58
[2017-08-15 16:54] VITALS: BP 135/69; PULSE 82; RESP 18; TEMP 98.2; O2SAT 100
[2017-08-15] MEDS: traZODone HCL 50 MG TAB PO PRN (22:30)
[2017-08-15] MEDS: hydrOXYzine HCL 50 MG TAB PO PRN (22:30)
[2017-08-16 06:15] VITALS: BP 139/66; PULSE 67; RESP 16; TEMP 98.1; O2SAT 98
[2017-08-16] MEDS: FOLIC ACID 1 MG TAB PO SCH (08:11)
[2017-08-16] MEDS: ESCITALOPRAM OXALATE 20 MG TAB PO SCH (08:11)
[2017-08-16] MEDS: THIAMINE HCL 100 MG TAB PO SCH (08:11)
[2017-08-16 09:01] LABS: AUTOMATED NEUTROPHIL # 0.7 TH/MM3 (1.8-7.7); EOSINOPHIL # 0.1 TH/MM3 (0-0.4); EOSINOPHIL % 4.5 % (0.0-4.0); HEMATOCRIT 41.8 % (39.0-51.0); LYMPH % 53.6 % (9.0-44.0); LYMPHOCYTE # 1.3 TH/MM3 (1.0-4.8); MEAN CELL VOLUME 91.1 FL (80.0-100.0); MEAN CORPUSCULAR HEMOGLOBIN 29.8 PG (27.0-34.0); MEAN CORPUSCULAR HGB CONC 32.7 % (32.0-36.0); MONO % 11.1 % (0.0-8.0); NEUT % 29.8 % (16.0-70.0); PLATELET COUNT 210 TH/MM3 (150-450); RED BLOOD COUNT 4.59 MIL/MM3 (4.50-5.90); RED CELL DISTRIBUTION WIDTH 13.7 % (11.6-17.2); WHITE BLOOD COUNT 2.5 TH/MM3 (4.0-11.0)
[2017-08-16 09:11] LABS: HEMO FLAGS AUTO DIFF
[2017-08-16 10:13] LABS: BANDS 1 % (0-6); EOSINOPHILS 3 % (0-4); PLATELET ESTIMATE SMEAR NORMAL (NORMAL); PLATELET MORPHOLOGY NORMAL (NORMAL); POLYS (SEG NEUTROPHILS) 38 % (16-70); SCAN/DIFF FINAL DIFF MANUAL; WBC DIFF SAMPLE 100
[2017-08-16] MEDS ORDERED: FOLI1TAB6 PO (11:40)
[2017-08-16] MEDS ORDERED: THIA100 PO (11:40)
[2017-08-16] MEDS ORDERED: ESCI20TA PO (11:40)
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
[2017-08-16 17:20] VITALS: BP 129/65; PULSE 70; RESP 18; TEMP 98; O2SAT 98
[2017-08-16] MEDS: hydrOXYzine HCL 50 MG TAB PO PRN (20:34)
[2017-08-16] MEDS: traZODone HCL 50 MG TAB PO PRN (20:34)
== END 2017-08-17 07:10 | disposition home or self-care (01) | DRG 881 ==
LOC: NEPD 01:43 → NEDA 08-09 11:53 → H270 08-09 18:42
PROVIDERS: ADMIT Psychiatry & Neurology Psychiatry; ATTEND Psychiatry & Neurology Psychiatry
DX: F43.21 Adjustment disorder with depressed mood (principal); D70.2 Other drug-induced agranulocytosis; F19.14 Other psychoactive substance abuse with psychoactive substance-induced mood disorder; F14.90 Cocaine use, unspecified, uncomplicated; F17.210 Nicotine dependence, cigarettes, uncomplicated; Z72.89 Other problems related to lifestyle; I25.2 Old myocardial infarction
CPT/HCPCS: 80053; 80061; 80307; 82306; 82607; 82746; 83036; 84443; 85007; 85027; 93005

== ENCOUNTER 2017-09-07 23:24 | Emergency (ER) | payer MEDICAID, OTHER ==
[~2017-09-07] VITALS: Ht 180.3 cm; Wt 67.1 kg
[~2017-09-07 23:24] MED LIST changes: -Benztropine PO; -ESCI10TA PO; +ESCI20TA PO; +FOLI1TAB6 PO; -HALO100P IM; -HALO5TAB PO; +THIA100 PO
[2017-09-08 00:04] VITALS: BP 112/63; PULSE 88; RESP 18; TEMP 98.2
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
[2017-09-08 01:09] LABS: AUTOMATED NEUTROPHIL # 4.1 TH/MM3 (1.8-7.7); BASOPHIL % 0.6 % (0.0-2.0); EOSINOPHIL % 0.9 % (0.0-4.0); HEMATOCRIT 40.6 % (39.0-51.0); HEMO FLAGS DIFF FINAL; LYMPH % 20.9 % (9.0-44.0); LYMPHOCYTE # 1.2 TH/MM3 (1.0-4.8); MEAN CORPUSCULAR HEMOGLOBIN 30.8 PG (27.0-34.0); MEAN CORPUSCULAR HGB CONC 33.8 % (32.0-36.0); MONO % 5.1 % (0.0-8.0); NEUT % 72.5 % (16.0-70.0); PLATELET COUNT 240 TH/MM3 (150-450); RED BLOOD COUNT 4.46 MIL/MM3 (4.50-5.90); RED CELL DISTRIBUTION WIDTH 14.7 % (11.6-17.2); WHITE BLOOD COUNT 5.7 TH/MM3 (4.0-11.0)
[2017-09-08 01:27] LABS: ALKALINE PHOSPHATASE 57 U/L (45-117); TOTAL BILIRUBIN ADULT 0.4 MG/DL (0.2-1.0)
[2017-09-08 01:30] LABS: ALT (GPT) 30 U/L (12-78); ANION GAP 6 MEQ/L (5-15); AST (GOT) 36 U/L (15-37); BICARBONATE 29.5 MEQ/L (21.0-32.0); CHLORIDE 107 MEQ/L (98-107); GLOMERULAR FILTRATION RATE 54 ML/MIN (>89); SODIUM (NA) 142 MEQ/L (136-145)
[2017-09-08 01:33] LABS: ALCOHOL 34 MG/DL (0-5); BLOOD UREA NITROGEN 19 MG/DL (7-18); POTASSIUM 4.7 MEQ/L (3.5-5.1)
[2017-09-08 15:15] VITALS: BP 133/75; PULSE 69; RESP 18; TEMP 98.2; O2SAT 100
[2017-09-08 22:15] VITALS: BP_SYST 112; BP_SYST 119; BP_DIAS 68; BP_DIAS 71; PULSE 70; PULSE 76; RESP 18; TEMP 98.6; O2SAT 99
[2017-09-09 02:00] VITALS: BP 118/75; PULSE 72; RESP 18; TEMP 97.7; O2SAT 100
[2017-09-09 06:16] VITALS: BP 112/71; PULSE 74; RESP 16; TEMP 97.9; O2SAT 100
[2017-09-09 11:00] VITALS: BP 118/68; PULSE 75; RESP 18
--- NOTE | 2017-09-09 12:49 | PD ---
Physical Exam Time Seen by Provider: 12:47 LOGAN Valadez has evaluated the patient, lifted the Guillen act and cleared the patient for discharge. Data Data Last Documented VS Vital Signs Date Time Temp Pulse Resp B/P (MAP) Pulse Ox O2 Delivery O2 Flow Rate FiO2 09/09/17 11:00 75 18 118/68 (85) Room Air 09/09/17 06:16 97.9 100 Orders Orders Complete Blood Count With Diff (09/08/17 00:09) Comprehensive Metabolic Panel (09/08/17 00:09) Psych Screen (09/08/17 00:09) Drug Screen, Random Urine (09/08/17 00:09) Alcohol (Ethanol) (09/08/17 00:09) Diet Regular Basic (09/08/17 Breakfast) Diet Regular Basic (09/08/17 Lunch) Diet Regular Basic (09/08/17 Dinner) Diet Regular Basic (09/09/17 Breakfast) Diet Regular Basic (09/09/17 Lunch) Labs Laboratory Tests Test 09/08/17 00:55 White Blood Count 5.7 TH/MM3 Red Blood Count 4.46 MIL/MM3 Hemoglobin 13.7 GM/DL Hematocrit 40.6 % Mean Corpuscular Volume 91.0 FL Mean Corpuscular Hemoglobin 30.8 PG Mean Corpuscular Hemoglobin Concent 33.8 % Red Cell Distribution Width 14.7 % Platelet Count 240 TH/MM3 Mean Platelet Volume 7.2 FL Neutrophils (%) (Auto) 72.5 % Lymphocytes (%) (Auto) 20.9 % Monocytes (%) (Auto) 5.1 % Eosinophils (%) (Auto) 0.9 % Basophils (%) (Auto) 0.6 % Neutrophils # (Auto) 4.1 TH/MM3 Lymphocytes # (Auto) 1.2 TH/MM3 Monocytes # (Auto) 0.3 TH/MM3 Eosinophils # (Auto) 0.0 TH/MM3 Basophils # (Auto) 0.0 TH/MM3 CBC Comment DIFF FINAL Differential Comment Blood Urea Nitrogen 19 MG/DL Creatinine 1.59 MG/DL Random Glucose 92 MG/DL Total Protein 7.1 GM/DL Albumin 3.3 GM/DL Calcium Level 8.5 MG/DL Alkaline Phosphatase 57 U/L Aspartate Amino Transf (AST/SGOT) 36 U/L Alanine Aminotransferase (ALT/SGPT) 30 U/L Total Bilirubin 0.4 MG/DL Sodium Level 142 MEQ/L Potassium Level 4.7 MEQ/L Chloride Level 107 MEQ/L Carbon Dioxide Level 29.5 MEQ/L Anion Gap 6 MEQ/L Estimat Glomerular Filtration Rate 54 ML/MIN Urine Opiates Screen NEG Urine Barbiturates Screen NEG Urine Amphetamines Screen NEG Urine Benzodiazepines Screen NEG Urine Cocaine Screen POS Urine Cannabinoids Screen POS Ethyl Alcohol Level 34 MG/DL MDM Supervised Visit with VIRAJ: No Narrative Course LOGAN Huntley has evaluated the patient, lifted the Guillen act and cleared the patient for discharge. Patient contracts safety. Denies suicidal or homicidal ideations. Patient will be provided community resource packet to [facility] for follow-up. Has friends and family for support. Patient was medically cleared by alternate provider prior to psych screening. Patient has been evaluated by psychiatry and and is now cleared for discharge. Diagnosis Primary Impression: Medical clearance for psychiatric admission Referrals: [facility] (Out patient) [facility] Primary Care Physician Psychiatrist Lily [facility] Patient Instructions: General Instructions, Mood Disorders (ED), Polysubstance Abuse (ED) Additional Instruction: Contract safety to your self and others Stop using drugs Follow-up with psychiatry Follow-up with primary care provider Follow-up with Anthony Davidson Return to the emergency department immediately with worsening of symptoms Med/Other Pt SpecificInfo: No Change to Meds, No Meds Exist/No RX given Disposition: 01 DISCHARGE HOME Condition: Stable Valerie Melendez Sep 09, 2017 12:49
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
== END 2017-09-09 13:07 | disposition home or self-care (01) ==
LOC: NEDAMB 23:24 → NEPJ 09-09 13:07
DX: F19.94 Other psychoactive substance use, unspecified with psychoactive substance-induced mood disorder (principal); F31.9 Bipolar disorder, unspecified; M19.90 Unspecified osteoarthritis, unspecified site; F41.9 Anxiety disorder, unspecified; K21.9 Gastro-esophageal reflux disease without esophagitis; I10 Essential (primary) hypertension; F20.9 Schizophrenia, unspecified; R56.9 Unspecified convulsions; F17.200 Nicotine dependence, unspecified, uncomplicated
CPT/HCPCS: 80053; 80307; 85025; 99284

== ENCOUNTER 2017-09-09 20:30 | Emergency (ER) | payer MEDICAID, OTHER ==
[~2017-09-09] VITALS: Ht 182.9 cm; Wt 90.0 kg
[~2017-09-09 20:30] MED LIST changes: -FOLI1TAB6 PO
[2017-09-09 20:45] VITALS: BP 115/61; PULSE 96; RESP 16; TEMP 97.9; O2SAT 97
[2017-09-09 22:28] LABS: AUTOMATED NEUTROPHIL # 1.9 TH/MM3 (1.8-7.7); BASOPHIL % 0.7 % (0.0-2.0); EOSINOPHIL # 0.1 TH/MM3 (0-0.4); EOSINOPHIL % 2.2 % (0.0-4.0); HEMATOCRIT 44.9 % (39.0-51.0); HEMO FLAGS DIFF FINAL; LYMPH % 40.5 % (9.0-44.0); LYMPHOCYTE # 1.5 TH/MM3 (1.0-4.8); MEAN CELL VOLUME 90.7 FL (80.0-100.0); MEAN CORPUSCULAR HEMOGLOBIN 30.4 PG (27.0-34.0); MEAN CORPUSCULAR HGB CONC 33.5 % (32.0-36.0); MONO % 5.6 % (0.0-8.0); PLATELET COUNT 258 TH/MM3 (150-450); RED BLOOD COUNT 4.95 MIL/MM3 (4.50-5.90); RED CELL DISTRIBUTION WIDTH 13.9 % (11.6-17.2); WHITE BLOOD COUNT 3.8 TH/MM3 (4.0-11.0)
[2017-09-09 22:49] LABS: ALKALINE PHOSPHATASE 59 U/L (45-117); TOTAL BILIRUBIN ADULT 0.4 MG/DL (0.2-1.0)
[2017-09-09 22:50] LABS: ALT (GPT) 26 U/L (12-78); ANION GAP 9 MEQ/L (5-15); AST (GOT) 25 U/L (15-37); BICARBONATE 26.2 MEQ/L (21.0-32.0); BLOOD UREA NITROGEN 19 MG/DL (7-18); CHLORIDE 103 MEQ/L (98-107); GLOMERULAR FILTRATION RATE 67 ML/MIN (>89); SODIUM (NA) 138 MEQ/L (136-145)
[2017-09-09 22:51] LABS: ACETAMINOPHEN LESS THAN 2.0 MCG/ML (10.0-30.0); ALCOHOL 58 MG/DL (0-5)
--- NOTE | 2017-09-10 01:26 | PD ---
HPI Chief Complaint: Psychiatric Symptoms Time Seen by Provider: 01:20 Travel History International Travel<30 days: No Contact w/Intl Traveler<30days: No Traveled to known affect area: No History of Present Illness HPI 57-year-old black male returns again or psychological evaluation after being just discharged earlier today. The patient states that he suffers from schizoaffective bipolar type and has contemplated suicide. He states that he has been off his medications. He has been living in his brother's house here in [facility] for the past 1-2 months. He normally lives with his mother in [place]. He admits to alcohol consumption and crack cocaine abuse. He denies any active plan on self-harm. Patient also states that when he gets depressed and having suicidal thoughts he also feels like hurting people to get in his way. He states that his sister was murdered over 10 years ago and he has had problems since then. PFSH Past Medical History Hx Anticoagulant Therapy: No Arthritis: Yes Asthma: No Autoimmune Disease: No Bipolar Disorder: Yes Anxiety: Yes Depression: Yes Heart Rhythm Problems: No Cancer: No Cardiac Catheterization: Yes Cardiovascular Problems: Yes High Cholesterol: No Chemotherapy: No Chest Pain: Yes ([place] 2002) Congestive Heart Failure: No COPD: No Cerebrovascular Accident: No Diabetes: No Diminished Hearing: No Endocrine: No Gastrointestinal Disorders: Yes GERD: Yes Genitourinary: No Headaches: No Hiatal Hernia: No Heparin Induced Thrombocytopen: Yes Hypertension: Yes Immune Disorder: No Kidney Stones: No Musculoskeletal: Yes Neurologic: Yes Psychiatric: Yes Reproductive: No Respiratory: No Immunizations Current: Yes Migraines: No Radiation Therapy: No Renal Failure: No Schizophrenia: Yes Seizures: Yes Sickle Cell Disease: No Sleep Apnea: No Thyroid Disease: No Ulcer: No Past Surgical History Abdominal Surgery: Yes (hernia ) AICD: No Arteriovenous Shunt: No Cardiac Surgery: No Coronary Artery Bypass Graft: No Ear Surgery: No Endocrine Surgery: No Eye Surgery: No Genitourinary Surgery: No Gynecologic Surgery: No Insulin Pump: No Joint Replacement: No Oral Surgery: No Pacemaker: No Thoracic Surgery: No Social History Alcohol Use: Yes (beers) Tobacco Use: Yes (PPD ) Substance Use: Yes Allergies-Medications (Allergen,Severity, Reaction): Coded Allergies: haloperidol (Verified Adverse Reaction, Intermediate, 09/09/17) Leukopenia/neutropenia Reported Meds & Prescriptions Reported Meds & Active Scripts Active Gnp Vitamin B-1 (Thiamine HCl) 100 Mg Tab 100 Mg PO DAILY 15 Days Escitalopram (Escitalopram Oxalate) 20 Mg Tab 20 Mg PO DAILY 15 Days Review of Systems General / Constitutional: No: Fever Eyes: No: Visual changes HENT: No: Headaches Cardiovascular: No: Chest Pain or Discomfort Respiratory: No: Shortness of Breath Gastrointestinal: No: Abdominal Pain Genitourinary: No: Dysuria Musculoskeletal: No: Pain Skin: No Rash Neurologic: No: Weakness Psychiatric: Positive: Depression, Suicidal Ideations, Disorder of Thought, Mood Disorder, Substance Abuse, Homicidal Ideation, No: Anxiety Endocrine: No: Polydipsia Hematologic/Lymphatic: No: Easy Bruising Physical Exam Narrative GENERAL: Well-nourished, well-developed patient. SKIN: Warm and dry. HEAD: Normocephalic and atraumatic. EYES: No scleral icterus. No injection or drainage. ENT: No nasal drainage noted. Mucous membranes pink. Airway patent. NECK: Supple, trachea midline. Moves head freely without obvious discomfort. CARDIOVASCULAR: Regular rate and rhythm without murmurs, gallops, or rubs. RESPIRATORY: Breath sounds equal bilaterally. No accessory muscle use. GASTROINTESTINAL: Abdomen soft, non-tender, nondistended. EXTREMITIES: No cyanosis or edema. BACK: Nontender without obvious deformity. No CVA tenderness. NEURO: Patient is alert and oriented. no sensorimotor deficits. Nonfocal. Normal speech. PSYCH: No delusions. Patient contends he is having auditory hallucinations. No visual hallucinations. Data Data Last Documented VS Vital Signs Date Time Temp Pulse Resp B/P (MAP) Pulse Ox O2 Delivery O2 Flow Rate FiO2 09/09/17 20:45 97.9 96 16 115/61 (79) 97 Orders Orders Complete Blood Count With Diff (09/09/17 21:30) Comprehensive Metabolic Panel (09/09/17 21:30) Psych Screen (09/09/17 21:30) Drug Screen, Random Urine (09/09/17 21:30) Alcohol (Ethanol) (09/09/17 21:30) Salicylates (Aspirin) (09/09/17 21:30) Tylenol (Acetaminophen) (09/09/17 21:30) Labs Laboratory Tests Test 09/09/17 21:45 09/09/17 21:50 Urine Opiates Screen NEG Urine Barbiturates Screen NEG Urine Amphetamines Screen NEG Urine Benzodiazepines Screen NEG Urine Cocaine Screen POS Urine Cannabinoids Screen NEG White Blood Count 3.8 TH/MM3 Red Blood Count 4.95 MIL/MM3 Hemoglobin 15.0 GM/DL Hematocrit 44.9 % Mean Corpuscular Volume 90.7 FL Mean Corpuscular Hemoglobin 30.4 PG Mean Corpuscular Hemoglobin Concent 33.5 % Red Cell Distribution Width 13.9 % Platelet Count 258 TH/MM3 Mean Platelet Volume 7.5 FL Neutrophils (%) (Auto) 51.0 % Lymphocytes (%) (Auto) 40.5 % Monocytes (%) (Auto) 5.6 % Eosinophils (%) (Auto) 2.2 % Basophils (%) (Auto) 0.7 % Neutrophils # (Auto) 1.9 TH/MM3 Lymphocytes # (Auto) 1.5 TH/MM3 Monocytes # (Auto) 0.2 TH/MM3 Eosinophils # (Auto) 0.1 TH/MM3 Basophils # (Auto) 0.0 TH/MM3 CBC Comment DIFF FINAL Differential Comment Blood Urea Nitrogen 19 MG/DL Creatinine 1.33 MG/DL Random Glucose 89 MG/DL Total Protein 7.5 GM/DL Albumin 3.6 GM/DL Calcium Level 8.7 MG/DL Alkaline Phosphatase 59 U/L Aspartate Amino Transf (AST/SGOT) 25 U/L Alanine Aminotransferase (ALT/SGPT) 26 U/L Total Bilirubin 0.4 MG/DL Sodium Level 138 MEQ/L Potassium Level 4.0 MEQ/L Chloride Level 103 MEQ/L Carbon Dioxide Level 26.2 MEQ/L Anion Gap 9 MEQ/L Estimat Glomerular Filtration Rate 67 ML/MIN Salicylates Level LESS THAN 1.7 MG/DL Acetaminophen Level LESS THAN 2.0 MCG/ML Ethyl Alcohol Level 58 MG/DL MDM Medical Decision Making Medical Screen Exam Complete: Yes Emergency Medical Condition: Yes Medical Record Reviewed: Yes Interpretation(s) Laboratory Tests Test 09/09/17 21:45 09/09/17 21:50 Urine Opiates Screen NEG Urine Barbiturates Screen NEG Urine Amphetamines Screen NEG Urine Benzodiazepines Screen NEG Urine Cocaine Screen POS Urine Cannabinoids Screen NEG White Blood Count 3.8 TH/MM3 Red Blood Count 4.95 MIL/MM3 Hemoglobin 15.0 GM/DL Hematocrit 44.9 % Mean Corpuscular Volume 90.7 FL Mean Corpuscular Hemoglobin 30.4 PG Mean Corpuscular Hemoglobin Concent 33.5 % Red Cell Distribution Width 13.9 % Platelet Count 258 TH/MM3 Mean Platelet Volume 7.5 FL Neutrophils (%) (Auto) 51.0 % Lymphocytes (%) (Auto) 40.5 % Monocytes (%) (Auto) 5.6 % Eosinophils (%) (Auto) 2.2 % Basophils (%) (Auto) 0.7 % Neutrophils # (Auto) 1.9 TH/MM3 Lymphocytes # (Auto) 1.5 TH/MM3 Monocytes # (Auto) 0.2 TH/MM3 Eosinophils # (Auto) 0.1 TH/MM3 Basophils # (Auto) 0.0 TH/MM3 CBC Comment DIFF FINAL Differential Comment Blood Urea Nitrogen 19 MG/DL Creatinine 1.33 MG/DL Random Glucose 89 MG/DL Total Protein 7.5 GM/DL Albumin 3.6 GM/DL Calcium Level 8.7 MG/DL Alkaline Phosphatase 59 U/L Aspartate Amino Transf (AST/SGOT) 25 U/L Alanine Aminotransferase (ALT/SGPT) 26 U/L Total Bilirubin 0.4 MG/DL Sodium Level 138 MEQ/L Potassium Level 4.0 MEQ/L Chloride Level 103 MEQ/L Carbon Dioxide Level 26.2 MEQ/L Anion Gap 9 MEQ/L Estimat Glomerular Filtration Rate 67 ML/MIN Salicylates Level LESS THAN 1.7 MG/DL Acetaminophen Level LESS THAN 2.0 MCG/ML Ethyl Alcohol Level 58 MG/DL Differential Diagnosis MDM: High Differential diagnoses: Schizophrenia, schizoaffective disorder, bipolar, anxiety, depression, adjustment reaction, mood disorder NOS, ODD, depressive disorder NOS, dementia, dementia with agitation, psychosis NOS, substance induced mood disorder, DMDD, Asperger syndrome, infection,electrolyte abnormality, malingering. Narrative Course Mental health screening discussed with the patient. Psychiatric screen ordered. The patient been medically cleared. This is medical clearance for psychiatric admission Diagnosis Primary Impression: Medical clearance for psychiatric admission Condition: Stable Rocco Chase Sep 10, 2017 01:26
[2017-09-10 04:26] VITALS: BP 126/70; PULSE 81; RESP 18; TEMP 98.2; O2SAT 99
[2017-09-10 06:18] VITALS: BP 128/78; PULSE 82; RESP 17; TEMP 99; O2SAT 100
== END 2017-09-10 10:16 ==
LOC: NEDAMB 20:30 → NEPJ 09-10 10:16
DX: Z02.89 Encounter for other administrative examinations (principal); F25.0 Schizoaffective disorder, bipolar type; I10 Essential (primary) hypertension; Y90.2 Blood alcohol level of 40-59 mg/100 ml; Z72.0 Tobacco use; Z72.89 Other problems related to lifestyle; Z79.899 Other long term (current) drug therapy; Z87.39 Personal history of other diseases of the musculoskeletal system and connective tissue; Z86.79 Personal history of other diseases of the circulatory system; Z87.19 Personal history of other diseases of the digestive system; Z86.69 Personal history of other diseases of the nervous system and sense organs
CPT/HCPCS: 80053; 80307; 85025; 99285

== ENCOUNTER 2017-09-21 19:57 | Emergency (ER) | payer MEDICAID, OTHER ==
[~2017-09-21] VITALS: Ht 180.3 cm; Wt 72.0 kg
[2017-09-21 20:02] VITALS: BP 116/62; PULSE 104; RESP 16; TEMP 97.9; O2SAT 100
[2017-09-21 20:13] VITALS: BP 127/76; PULSE 99; RESP 15; TEMP 97.8; O2SAT 96
--- NOTE | 2017-09-21 20:27 | PD ---
HPI Chief Complaint: Psychiatric Symptoms Time Seen by Provider: 20:18 Travel History International Travel<30 days: No Contact w/Intl Traveler<30days: No Traveled to known affect area: No History of Present Illness HPI The patient is a 57-year-old Alanis male who presents to the emergency department via police as a Guillen act. According to the police affidavit the patient advised the police clerk earlier today that his girlfriend made him mad, he left the residents to get away. The patient then drank one beer and smoked a joint. The patient advised that he had [place] his [place] and does not want to do anything to go back. However, the patient advised that he "call 911 before he can do any equal against his girlfriend ". The patient states he does have a history of bipolar affective disorder and hears the voices of his sister and dad nephew who were killed , his sister 1999, his nephew 2014. He states he does hear voices occasionally. He denies any suicidal ideation. He denies any physical complaints. PFSH Past Medical History Hx Anticoagulant Therapy: No Arthritis: Yes Asthma: No Autoimmune Disease: No Bipolar Disorder: Yes Anxiety: Yes Depression: Yes Heart Rhythm Problems: No Cancer: No Cardiac Catheterization: Yes Cardiovascular Problems: Yes High Cholesterol: No Chemotherapy: No Chest Pain: Yes ([place] 2002) Congestive Heart Failure: No COPD: No Cerebrovascular Accident: No Diabetes: No Diminished Hearing: No Endocrine: No Gastrointestinal Disorders: Yes GERD: Yes Genitourinary: No Headaches: No Hiatal Hernia: No Heparin Induced Thrombocytopen: Yes Hypertension: Yes Immune Disorder: No Kidney Stones: No Musculoskeletal: Yes Neurologic: Yes Psychiatric: Yes Reproductive: No Respiratory: No Immunizations Current: Yes Migraines: No Radiation Therapy: No Renal Failure: No Schizophrenia: Yes Seizures: Yes Sickle Cell Disease: No Sleep Apnea: No Thyroid Disease: No Ulcer: No Past Surgical History Abdominal Surgery: Yes (2 HERINA SX) AICD: No Arteriovenous Shunt: No Cardiac Surgery: No Coronary Artery Bypass Graft: No Ear Surgery: No Endocrine Surgery: No Eye Surgery: No Genitourinary Surgery: No Gynecologic Surgery: No Insulin Pump: No Joint Replacement: No Oral Surgery: No Pacemaker: No Thoracic Surgery: No Social History Alcohol Use: Yes Tobacco Use: Yes Substance Use: No (MARIJUANA, COCAINE) Allergies-Medications (Allergen,Severity, Reaction): Coded Allergies: haloperidol (Verified Adverse Reaction, Intermediate, 09/21/17) Leukopenia/neutropenia Reported Meds & Prescriptions Reported Meds & Active Scripts Active Gnp Vitamin B-1 (Thiamine HCl) 100 Mg Tab 100 Mg PO DAILY 15 Days Escitalopram (Escitalopram Oxalate) 20 Mg Tab 20 Mg PO DAILY 15 Days Review of Systems Except as stated in HPI: all other systems reviewed are Neg HENT: No: Headaches Cardiovascular: No: Chest Pain or Discomfort Respiratory: No: Shortness of Breath Gastrointestinal: No: Nausea, Vomiting, Abdominal Pain Musculoskeletal: No: Weakness Psychiatric: Positive: Mood Disorder, Substance Abuse, Other (thoughts of harming others), No: Anxiety, Depression, Suicidal Ideations Physical Exam Narrative GENERAL: Awake, alert, pleasant 57-year-old male who appears his stated age and is in no acute respiratory distress. SKIN: Focused skin assessment warm/dry. HEAD: Atraumatic. Normocephalic. EYES: Pupils equal and round. No scleral icterus. No injection or drainage. ENT: No nasal bleeding or discharge. Mucous membranes pink and moist. NECK: Trachea midline. No JVD. CARDIOVASCULAR: Regular rate and rhythm. No murmur appreciated. RESPIRATORY: No accessory muscle use. Clear to auscultation. Breath sounds equal bilaterally. GASTROINTESTINAL: Abdomen soft, non-tender, nondistended. MUSCULOSKELETAL: No obvious deformities. No clubbing. No cyanosis. No edema. NEUROLOGICAL: Awake and alert. No obvious cranial nerve deficits. Motor grossly within normal limits. Normal speech. Nonfocal. Oriented 4. Follows commands without difficulty. PSYCHIATRIC: Appropriate mood and affect; insight and judgment normal. Data Data Last Documented VS Vital Signs Date Time Temp Pulse Resp B/P (MAP) Pulse Ox O2 Delivery O2 Flow Rate FiO2 09/21/17 20:20 99 15 09/21/17 20:13 97.8 127/76 (93) 96 Room Air Orders Orders Complete Blood Count With Diff (09/21/17 20:23) Comprehensive Metabolic Panel (09/21/17 20:23) Psych Screen (09/21/17 20:23) Drug Screen, Random Urine (09/21/17 20:23) Alcohol (Ethanol) (09/21/17 20:23) Labs Laboratory Tests Test 09/21/17 20:30 White Blood Count 6.8 TH/MM3 Red Blood Count 5.04 MIL/MM3 Hemoglobin 15.0 GM/DL Hematocrit 45.3 % Mean Corpuscular Volume 89.9 FL Mean Corpuscular Hemoglobin 29.8 PG Mean Corpuscular Hemoglobin Concent 33.1 % Red Cell Distribution Width 14.1 % Platelet Count 246 TH/MM3 Mean Platelet Volume 7.5 FL Neutrophils (%) (Auto) 63.2 % Lymphocytes (%) (Auto) 26.6 % Monocytes (%) (Auto) 7.9 % Eosinophils (%) (Auto) 1.6 % Basophils (%) (Auto) 0.7 % Neutrophils # (Auto) 4.3 TH/MM3 Lymphocytes # (Auto) 1.8 TH/MM3 Monocytes # (Auto) 0.5 TH/MM3 Eosinophils # (Auto) 0.1 TH/MM3 Basophils # (Auto) 0.0 TH/MM3 CBC Comment DIFF FINAL Differential Comment Blood Urea Nitrogen 31 MG/DL Creatinine 2.03 MG/DL Random Glucose 83 MG/DL Total Protein 8.2 GM/DL Albumin 3.9 GM/DL Calcium Level 9.3 MG/DL Alkaline Phosphatase 70 U/L Aspartate Amino Transf (AST/SGOT) 45 U/L Alanine Aminotransferase (ALT/SGPT) 45 U/L Total Bilirubin 0.7 MG/DL Sodium Level 138 MEQ/L Potassium Level 4.4 MEQ/L Chloride Level 102 MEQ/L Carbon Dioxide Level 22.1 MEQ/L Anion Gap 14 MEQ/L Estimat Glomerular Filtration Rate 41 ML/MIN Urine Opiates Screen NEG Urine Barbiturates Screen NEG Urine Amphetamines Screen NEG Urine Benzodiazepines Screen NEG Urine Cocaine Screen POS Urine Cannabinoids Screen POS Ethyl Alcohol Level 26 MG/DL MDM Medical Decision Making Medical Screen Exam Complete: Yes Emergency Medical Condition: Yes Medical Record Reviewed: Yes Interpretation(s) Laboratory Tests Test 09/21/17 20:30 White Blood Count 6.8 TH/MM3 Red Blood Count 5.04 MIL/MM3 Hemoglobin 15.0 GM/DL Hematocrit 45.3 % Mean Corpuscular Volume 89.9 FL Mean Corpuscular Hemoglobin 29.8 PG Mean Corpuscular Hemoglobin Concent 33.1 % Red Cell Distribution Width 14.1 % Platelet Count 246 TH/MM3 Mean Platelet Volume 7.5 FL Neutrophils (%) (Auto) 63.2 % Lymphocytes (%) (Auto) 26.6 % Monocytes (%) (Auto) 7.9 % Eosinophils (%) (Auto) 1.6 % Basophils (%) (Auto) 0.7 % Neutrophils # (Auto) 4.3 TH/MM3 Lymphocytes # (Auto) 1.8 TH/MM3 Monocytes # (Auto) 0.5 TH/MM3 Eosinophils # (Auto) 0.1 TH/MM3 Basophils # (Auto) 0.0 TH/MM3 CBC Comment DIFF FINAL Differential Comment Blood Urea Nitrogen 31 MG/DL Creatinine 2.03 MG/DL Random Glucose 83 MG/DL Total Protein 8.2 GM/DL Albumin 3.9 GM/DL Calcium Level 9.3 MG/DL Alkaline Phosphatase 70 U/L Aspartate Amino Transf (AST/SGOT) 45 U/L Alanine Aminotransferase (ALT/SGPT) 45 U/L Total Bilirubin 0.7 MG/DL Sodium Level 138 MEQ/L Potassium Level 4.4 MEQ/L Chloride Level 102 MEQ/L Carbon Dioxide Level 22.1 MEQ/L Anion Gap 14 MEQ/L Estimat Glomerular Filtration Rate 41 ML/MIN Urine Opiates Screen NEG Urine Barbiturates Screen NEG Urine Amphetamines Screen NEG Urine Benzodiazepines Screen NEG Urine Cocaine Screen POS Urine Cannabinoids Screen POS Ethyl Alcohol Level 26 MG/DL Differential Diagnosis Differential diagnosis includes substance induced mood disorder, bipolar affective disorder, adjustment reaction, stress reaction, schizoaffective disorder. Narrative Course Labs are drawn and sent. Psychiatric evaluation was ordered. Creatinine is mildly elevated at 2, I reviewed it he has had creatinines as high as 1.5 and 9 in the past. The patient's positive for cocaine and cannabinoids. Alcohol was 26. The patient is medically clear to be evaluated by psychiatry. Disposition as per psych. Diagnosis Primary Impression: Schizoaffective disorder, bipolar type Condition: Stable Malcom Graham MD Sep 21, 2017 20:27
[2017-09-21 20:40] LABS: AUTOMATED NEUTROPHIL # 4.3 TH/MM3 (1.8-7.7); BASOPHIL % 0.7 % (0.0-2.0); EOSINOPHIL # 0.1 TH/MM3 (0-0.4); EOSINOPHIL % 1.6 % (0.0-4.0); HEMATOCRIT 45.3 % (39.0-51.0); LYMPH % 26.6 % (9.0-44.0); LYMPHOCYTE # 1.8 TH/MM3 (1.0-4.8); MEAN CELL VOLUME 89.9 FL (80.0-100.0); MEAN CORPUSCULAR HEMOGLOBIN 29.8 PG (27.0-34.0); MEAN CORPUSCULAR HGB CONC 33.1 % (32.0-36.0); MEAN PLATELET VOLUME 7.5 FL (7.0-11.0); MONO % 7.9 % (0.0-8.0); MONOCYTE # 0.5 TH/MM3 (0-0.9); NEUT % 63.2 % (16.0-70.0); PLATELET COUNT 246 TH/MM3 (150-450); RED BLOOD COUNT 5.04 MIL/MM3 (4.50-5.90); RED CELL DISTRIBUTION WIDTH 14.1 % (11.6-17.2); WHITE BLOOD COUNT 6.8 TH/MM3 (4.0-11.0)
[2017-09-21 21:10] LABS: ALBUMIN 3.9 GM/DL (3.4-5.0); ALT (GPT) 45 U/L (12-78); AST (GOT) 45 U/L (15-37); BICARBONATE 22.1 MEQ/L (21.0-32.0); BLOOD UREA NITROGEN 31 MG/DL (7-18); CALCIUM 9.3 MG/DL (8.5-10.1); CHLORIDE 102 MEQ/L (98-107); CREATININE 2.03 MG/DL (0.60-1.30); GLOMERULAR FILTRATION RATE 41 ML/MIN (>89); GLUCOSE,RANDOM 83 MG/DL (74-106); SODIUM (NA) 138 MEQ/L (136-145)
[2017-09-21 21:13] LABS: ALKALINE PHOSPHATASE 70 U/L (45-117); TOTAL BILIRUBIN ADULT 0.7 MG/DL (0.2-1.0); TOTAL PROTEIN 8.2 GM/DL (6.4-8.2)
[2017-09-21 22:45] VITALS: BP 110/65; PULSE 78; RESP 17; O2SAT 98
[2017-09-23] MEDS ORDERED: LEXA20TA PO (16:13)
== END 2017-09-22 02:16 ==
LOC: NEPD 19:57 → NEPJ 09-22 02:16
DX: F25.0 Schizoaffective disorder, bipolar type (principal); Z72.0 Tobacco use; Z79.899 Other long term (current) drug therapy
CPT/HCPCS: 80053; 80307; 85025; 99283

== ENCOUNTER 2017-09-23 03:04 | Emergency (ER) | payer MEDICAID, OTHER ==
[~2017-09-23] VITALS: Ht 180.3 cm; Wt 75.0 kg
[2017-09-23 03:08] VITALS: BP 121/62; PULSE 90; RESP 16; TEMP 98.3; O2SAT 98
--- NOTE | 2017-09-23 04:06 | PD ---
HPI Chief Complaint: Psychiatric Symptoms Time Seen by Provider: 03:55 Travel History International Travel<30 days: No Contact w/Intl Traveler<30days: No Traveled to known affect area: No History of Present Illness HPI 57-year-old black male known to the medical staff and myself presents to the ER under Guillen act. The patient had contacted police this evening notifying them he was having suicidal thoughts. The patient states that he had been drinking alcohol. He's had a history of crack cocaine abuse. He reports when he gets drunk or high he thinks about his sister who was murdered. He states that he feels that he would like to be with her. He has no active plan on self-harm. No homicidal ideation. No toxic ingestions. No medical complaints. PFSH Past Medical History Hx Anticoagulant Therapy: No Arthritis: Yes Asthma: No Autoimmune Disease: No Bipolar Disorder: Yes Anxiety: Yes Depression: Yes Heart Rhythm Problems: No Cancer: No Cardiac Catheterization: Yes Cardiovascular Problems: Yes High Cholesterol: No Chemotherapy: No Chest Pain: Yes ([place] 2002) Congestive Heart Failure: No COPD: No Cerebrovascular Accident: No Diabetes: No Diminished Hearing: No Endocrine: No Gastrointestinal Disorders: Yes GERD: Yes Genitourinary: No Headaches: No Hiatal Hernia: No Heparin Induced Thrombocytopen: Yes Hypertension: Yes Immune Disorder: No Kidney Stones: No Musculoskeletal: Yes Neurologic: Yes Psychiatric: Yes Reproductive: No Respiratory: No Immunizations Current: Yes Migraines: No Radiation Therapy: No Renal Failure: No Schizophrenia: Yes Seizures: Yes Sickle Cell Disease: No Sleep Apnea: No Thyroid Disease: No Ulcer: No Tetanus Vaccination: < 5 Years Influenza Vaccination: Yes Past Surgical History Abdominal Surgery: Yes (2 HERINA SX) AICD: No Arteriovenous Shunt: No Cardiac Surgery: No Coronary Artery Bypass Graft: No Ear Surgery: No Endocrine Surgery: No Eye Surgery: No Genitourinary Surgery: No Gynecologic Surgery: No Insulin Pump: No Joint Replacement: No Oral Surgery: No Pacemaker: No Thoracic Surgery: No Social History Alcohol Use: Yes (daily) Tobacco Use: Yes Substance Use: No (MARIJUANA, COCAINE) Allergies-Medications (Allergen,Severity, Reaction): Coded Allergies: haloperidol (Verified Adverse Reaction, Intermediate, 09/23/17) Leukopenia/neutropenia Reported Meds & Prescriptions Reported Meds & Active Scripts Active Gnp Vitamin B-1 (Thiamine HCl) 100 Mg Tab 100 Mg PO DAILY 15 Days Escitalopram (Escitalopram Oxalate) 20 Mg Tab 20 Mg PO DAILY 15 Days Review of Systems General / Constitutional: No: Fever Eyes: No: Visual changes HENT: No: Headaches Cardiovascular: No: Chest Pain or Discomfort Respiratory: No: Shortness of Breath Gastrointestinal: No: Abdominal Pain Genitourinary: No: Dysuria Musculoskeletal: No: Pain Skin: No Rash Neurologic: No: Weakness Psychiatric: Positive: Suicidal Ideations, Disorder of Thought, Mood Disorder, Substance Abuse, No: Anxiety, Depression, Homicidal Ideation Endocrine: No: Polydipsia Hematologic/Lymphatic: No: Easy Bruising Physical Exam Narrative GENERAL: Well-nourished, well-developed patient. SKIN: Warm and dry. HEAD: Normocephalic and atraumatic. EYES: No scleral icterus. No injection or drainage. ENT: No nasal drainage noted. Mucous membranes pink. Airway patent. NECK: Supple, trachea midline. Moves head freely without obvious discomfort. CARDIOVASCULAR: Regular rate and rhythm without murmurs, gallops, or rubs. RESPIRATORY: Breath sounds equal bilaterally. No accessory muscle use. GASTROINTESTINAL: Abdomen soft, non-tender, nondistended. EXTREMITIES: No cyanosis or edema. BACK: Nontender without obvious deformity. No CVA tenderness. NEURO: Patient is alert and oriented. no sensorimotor deficits. Nonfocal. Normal speech. PSYCH: No delusions. Data Data Last Documented VS Vital Signs Date Time Temp Pulse Resp B/P (MAP) Pulse Ox O2 Delivery O2 Flow Rate FiO2 09/23/17 03:08 98.3 90 16 121/62 (81) 98 Room Air Orders Orders Psych Screen (09/23/17 04:01) MDM Medical Decision Making Medical Screen Exam Complete: Yes Emergency Medical Condition: Yes Medical Record Reviewed: Yes Differential Diagnosis MDM: High Differential diagnoses: Schizophrenia, schizoaffective disorder, bipolar, anxiety, depression, adjustment reaction, mood disorder NOS, ODD, depressive disorder NOS, dementia, dementia with agitation, psychosis NOS, substance induced mood disorder, DMDD, Asperger syndrome, infection,electrolyte abnormality, malingering. Narrative Course Mental health screening discussed with the patient. Psychiatric screen ordered. The patient been medically cleared. This is medical clearance for psychiatric admission, substance abuse Diagnosis Primary Impression: Medical clearance for psychiatric admission Additional Impression: Polysubstance abuse Condition: Stable Rocco Chase Sep 23, 2017 04:06
[2017-09-23 10:26] VITALS: BP 122/68; PULSE 99; RESP 18; O2SAT 99
[2017-09-23 14:10] VITALS: BP 120/68; PULSE 77; RESP 18
[2017-09-23] MEDS ORDERED: LEXA20TA PO (16:13)
--- NOTE | 2017-09-23 16:16 | PD ---
History of Present Illness Chief Complaint: Psychiatric Symptoms Time Seen by Provider: 16:15 Travel History International Travel<30 Days: No Contact w/Intl Traveler<30days: No Known affected area: No Legal Status Legal Status: Voluntary History of Present Illness: Patient known to this physician. He is not clinically intoxicated with alcohol or illicit substances at this time. He denies any suicidal or homicidal ideation, plan or intent. He demonstrates no cognitive impairments and no psychotic thinking. He is verbally eliana for safety and he is competent to do so. He would like a prescription for Lexapro before he leaves and this was given to him. PFSH Past Medical History Hx Anticoagulant Therapy: No Arthritis: Yes Asthma: No Autoimmune Disease: No Bipolar Disorder: Yes Anxiety: Yes Depression: Yes Heart Rhythm Problems: No Cancer: No Cardiac Catheterization: Yes Cardiovascular Problems: Yes High Cholesterol: No Chemotherapy: No Chest Pain: Yes ([place] 2002) Congestive Heart Failure: No COPD: No Cerebrovascular Accident: No Diabetes: No Diminished Hearing: No Endocrine: No Gastrointestinal Disorders: Yes GERD: Yes Genitourinary: No Headaches: No Hiatal Hernia: No Heparin Induced Thrombocytopen: Yes Hypertension: Yes Immune Disorder: No Kidney Stones: No Musculoskeletal: Yes Neurologic: Yes Psychiatric: Yes Reproductive: No Respiratory: No Immunizations Current: Yes Migraines: No Radiation Therapy: No Renal Failure: No Schizophrenia: Yes Seizures: Yes Sickle Cell Disease: No Sleep Apnea: No Thyroid Disease: No Ulcer: No Tetanus Vaccination: < 5 Years Influenza Vaccination: Yes Past Surgical History Abdominal Surgery: Yes (2 HERINA SX) AICD: No Arteriovenous Shunt: No Cardiac Surgery: No Coronary Artery Bypass Graft: No Ear Surgery: No Endocrine Surgery: No Eye Surgery: No Genitourinary Surgery: No Gynecologic Surgery: No Insulin Pump: No Joint Replacement: No Oral Surgery: No Pacemaker: No Thoracic Surgery: No Psychiatric History Psychiatric History Hx Psychiatric Treatment: PATIENT WAS LAST ADMITTED TO [facility] FROM 08/09/17 TO 08/17/17 FOR ADJUSTMENT DISORDER. History of Inpatient Treatment: Yes Guns or firearms in home: No Social History Hx Alcohol Use: Yes (daily) Hx Tobacco Use: Yes Hx Substance Use: No (MARIJUANA, COCAINE) Substance Use Type: Alcohol, Marijuana, Cocaine Other Substances Used: No use in about 1 week. Hx of Substance Use Treatment: Yes Allergies-Medications (Allergen,Severity, Reaction): Coded Allergies: haloperidol (Verified Adverse Reaction, Intermediate, 09/23/17) Leukopenia/neutropenia Reported Meds & Prescriptions Reported Meds & Active Scripts Active Lexapro (Escitalopram Oxalate) 20 Mg Tab 20 Mg PO DAILY Gnp Vitamin B-1 (Thiamine HCl) 100 Mg Tab 100 Mg PO DAILY 15 Days Escitalopram (Escitalopram Oxalate) 20 Mg Tab 20 Mg PO DAILY 15 Days Review of Systems Psychiatric: COMPLAINS OF: Mood changes Except as stated in HPI: all other systems reviewed are Neg Mental Status Examination Appearance: Appropriate Consciousness: Alert Orientation: x4 Motor Activity: Normal gait Speech: Unremarkable Language: Adequate Fund of Knowledge: Adequate Attention and Concentration: Adequate Memory: Unremarkable Mood: Appropriate Affect: Appropriate Thought Process & Associations: Intact Thought Content: Appropriate Hallucination Type: None Delusion Type: None Suicidal Ideation: No Suicidal Plan: No Suicidal Intention: No Homicidal Ideation: No Homicidal Plan: No Homicidal Intention: No Insight: Adequate Judgment: Adequate MDM Medical Decision Making Medical Record Reviewed: Yes Assessment/Plan Patient interviewed at bedside. Electronic medical record reviewed. Case discussed with nurse Hien. Patient does not meet criteria for psychiatric hospitalization or Guillen act. He wants to go home. He can [facility] up at [facility] on an outpatient basis. Orders Orders Psych Screen (09/23/17 04:01) Diet Regular Basic (09/23/17 Breakfast) Diet Regular Basic (09/23/17 Lunch) Diet Regular Basic (09/23/17 Dinner) Results Vital Signs Date Time Temp Pulse Resp B/P (MAP) Pulse Ox O2 Delivery O2 Flow Rate FiO2 09/23/17 10:26 99 18 122/68 (86) 99 Room Air 09/23/17 06:32 09/23/17 03:08 98.3 90 16 121/62 (81) 98 Room Air Diagnosis Primary Impression: Polysubstance abuse Prescriptions Escitalopram (Lexapro) 20 Mg Tab 20 MG PO DAILY, #30 TAB 0 Refills Prov: Magen Colón MD 09/23/17 Condition: Stable Magen Colón MD Sep 23, 2017 16:16
--- NOTE | 2017-09-23 17:00 | PD ---
Physical Exam Date Seen by Provider: Sep 23, 2017 Time Seen by Provider: 16:59 Narrative 57-year-old male previously evaluated and medically cleared for psychiatric evaluation after being Guillen acted for suicidal ideation. Patient was seen by Dr. Colón, the psychiatrist and psychiatrically cleared for discharge. Patient remains medically stable for discharge at this time. Follow-up Plan is as per Dr. Colón's note. Data Data Last Documented VS Vital Signs Date Time Temp Pulse Resp B/P (MAP) Pulse Ox O2 Delivery O2 Flow Rate FiO2 09/23/17 14:10 77 18 120/68 (85) Room Air 09/23/17 10:26 99 09/23/17 03:08 98.3 Orders Orders Psych Screen (09/23/17 04:01) Diet Regular Basic (09/23/17 Breakfast) Diet Regular Basic (09/23/17 Lunch) Diet Regular Basic (09/23/17 Dinner) MDM Medical Record Reviewed: Yes Supervised Visit with VIRAJ: Yes Narrative Course 57-year-old male previously evaluated and medically cleared for psychiatric evaluation after being Guillen acted for suicidal ideation. Patient was seen by Dr. Colón, the psychiatrist and psychiatrically cleared for discharge. Patient remains medically stable for discharge at this time. Follow-up Plan is as per Dr. Colón's note. Diagnosis Primary Impression: Polysubstance abuse Additional Instruction: 57-year-old male previously evaluated and medically cleared for psychiatric evaluation after being Guillen acted for suicidal ideation. Patient was seen by Dr. Colón, the psychiatrist and psychiatrically cleared for discharge. Patient remains medically stable for discharge at this time. Follow-up Plan is as per Dr. Colón's note. Scripts Escitalopram (Lexapro) 20 Mg Tab 20 MG PO DAILY, #30 TAB 0 Refills Prov: Magen Colón MD 09/23/17 Disposition: 01 DISCHARGE HOME Condition: Stable Manuel Salguero Sep 23, 2017 17:00
== END 2017-09-23 17:20 | disposition home or self-care (01) ==
LOC: NEPD 03:04 → NEPJ 17:20
DX: R45.851 Suicidal ideations (principal); F14.10 Cocaine abuse, uncomplicated; F31.9 Bipolar disorder, unspecified; K21.9 Gastro-esophageal reflux disease without esophagitis; I10 Essential (primary) hypertension; F20.9 Schizophrenia, unspecified; R56.9 Unspecified convulsions; F41.9 Anxiety disorder, unspecified; M19.90 Unspecified osteoarthritis, unspecified site
CPT/HCPCS: 99283

== ENCOUNTER 2017-10-16 00:44 | Emergency (ER) | payer MEDICAID ==
[~2017-10-16] VITALS: Ht 180.3 cm; Wt 75.0 kg
[~2017-10-16 00:44] MED LIST changes: +LEXA20TA PO
[2017-10-16 00:50] VITALS: BP 120/67; PULSE 89; RESP 16; TEMP 98; O2SAT 97
[2017-10-16 09:14] LABS: BILIRUBIN, URINE NEG (NEG); BLOOD, URINE NEG (NEG); GLUCOSE,URINE NEG (NEG); KETONE, URINE NEG (NEG); NITRITE,URINE NEG (NEG); PH, URINE 5.5 (5.0-8.5); SQUAMOUS EPITHELIAL CELL URINE 1 /hpf (0-5); URINE COLOR YELLOW (YELLW/STRAW); URINE LEUKOCYTE ESTERASE NEG (NEG)
--- NOTE | 2017-10-16 09:38 | PD ---
HPI Chief Complaint: Psychiatric Symptoms Time Seen by Provider: 09:33 Travel History International Travel<30 days: No Contact w/Intl Traveler<30days: No Traveled to known affect area: No History of Present Illness HPI 57-year-old male presents voluntarily for thoughts of suicide since last night. Reports history of bipolar and schizophrenia. He also has homicidal ideations. He says he wants to kill the man family who killed his sister. His thoughts are aggravated by the man who killed his sister. He denies history of suicidal attempts. Denies current plan. Reports uses cocaine, marijuana, heroin. Reports auditory and visual hallucinations. Reports alcohol use. Symptoms are moderate to severe in severity. No known relieving factors. Denies significant past medical history. Allergies to Haldol. Primary care provider at the [facility] and he has an appointment on Wednesday. Does not the psychiatrist. Has no other emergent medical complaints at this time. No other modifying factors or associated signs and symptoms. PFSH Past Medical History Hx Anticoagulant Therapy: No Arthritis: Yes Asthma: No Autoimmune Disease: No Bipolar Disorder: Yes Anxiety: Yes Depression: Yes Heart Rhythm Problems: No Cancer: No Cardiac Catheterization: Yes Cardiovascular Problems: Yes High Cholesterol: No Chemotherapy: No Chest Pain: Yes ([place] 2002) Congestive Heart Failure: No COPD: No Cerebrovascular Accident: No Diabetes: No Diminished Hearing: No Endocrine: No Gastrointestinal Disorders: Yes GERD: Yes Genitourinary: No Headaches: No Hiatal Hernia: No Heparin Induced Thrombocytopen: Yes Hypertension: Yes Immune Disorder: No Kidney Stones: No Musculoskeletal: Yes Neurologic: Yes Psychiatric: Yes Reproductive: No Respiratory: No Immunizations Current: Yes Migraines: No Radiation Therapy: No Renal Failure: No Schizophrenia: Yes Seizures: Yes Sickle Cell Disease: No Sleep Apnea: No Thyroid Disease: No Ulcer: No Past Surgical History Abdominal Surgery: Yes (2 HERINA SX) AICD: No Arteriovenous Shunt: No Cardiac Surgery: No Coronary Artery Bypass Graft: No Ear Surgery: No Endocrine Surgery: No Eye Surgery: No Genitourinary Surgery: No Gynecologic Surgery: No Insulin Pump: No Joint Replacement: No Oral Surgery: No Pacemaker: No Thoracic Surgery: No Social History Alcohol Use: Yes (daily) Tobacco Use: Yes Substance Use: No (MARIJUANA, COCAINE) Allergies-Medications (Allergen,Severity, Reaction): Coded Allergies: haloperidol (Verified Adverse Reaction, Intermediate, 09/23/17) Leukopenia/neutropenia Reported Meds & Prescriptions Reported Meds & Active Scripts Active Lexapro (Escitalopram Oxalate) 20 Mg Tab 20 Mg PO DAILY Gnp Vitamin B-1 (Thiamine HCl) 100 Mg Tab 100 Mg PO DAILY 15 Days Escitalopram (Escitalopram Oxalate) 20 Mg Tab 20 Mg PO DAILY 15 Days Review of Systems Except as stated in HPI: all other systems reviewed are Neg Physical Exam Narrative GENERAL: Well-nourished, well-developed black male patient, in no acute distress SKIN: Warm and dry. HEAD: Atraumatic. Normocephalic. EYES: Pupils equal and round. ENT: Mucosa pink and moist. NECK: Supple. Trachea midline. CARDIOVASCULAR: Regular rate and rhythm. No murmur appreciated. RESPIRATORY: No accessory muscle use. Clear to auscultation. Breath sounds equal bilaterally. GASTROINTESTINAL: Abdomen soft, non-tender, nondistended. Hepatic and splenic margins not palpable. Bowel sounds are active 4 quadrants. MUSCULOSKELETAL: No obvious deformities. No clubbing. No cyanosis. No edema. NEUROLOGICAL: Awake and alert. Oriented 3. No obvious cranial nerve deficits. Motor grossly within normal limits. Normal speech. Moves all extremities. 5/5 strength to all extremities. PSYCHIATRIC: No delusional thought processes. No hallucinations. Data Data Last Documented VS Vital Signs Date Time Temp Pulse Resp B/P (MAP) Pulse Ox O2 Delivery O2 Flow Rate FiO2 10/16/17 00:50 98.0 89 16 120/67 (84) 97 Orders Orders Complete Blood Count With Diff (10/16/17 08:14) Comprehensive Metabolic Panel (10/16/17 08:14) Urinalysis - C+S If Indicated (10/16/17 08:14) Psych Screen (10/16/17 08:14) Drug Screen, Random Urine (10/16/17 08:14) Labs Laboratory Tests Test 10/16/17 09:00 Urine Color YELLOW Urine Turbidity CLEAR Urine pH 5.5 Urine Specific [place] 1.020 Urine Protein NEG mg/dL Urine Glucose (UA) NEG mg/dL Urine Ketones NEG mg/dL Urine Occult Blood NEG Urine Nitrite NEG Urine Bilirubin NEG Urine Urobilinogen 2.0 MG/DL Urine Leukocyte Esterase NEG Urine RBC 1 /hpf Urine WBC LESS THAN 1 /hpf Urine Squamous Epithelial Cells 1 /hpf Microscopic Urinalysis Comment CULT NOT INDICATED Urine Opiates Screen NEG Urine Barbiturates Screen NEG Urine Amphetamines Screen NEG Urine Benzodiazepines Screen NEG Urine Cocaine Screen POS Urine Cannabinoids Screen POS MDM Medical Decision Making Medical Screen Exam Complete: Yes Emergency Medical Condition: Yes Medical Record Reviewed: Yes Differential Diagnosis Suicidal ideation, homicidal ideation, medical clearance for psychiatric evaluation Narrative Course Patient presents voluntarily. Physical examination and vital signs are essentially unremarkable. Patient has no medical complaints to report. Psych screen has been ordered. If the laboratory results are unremarkable, the patient will be medically cleared for psychiatric evaluation and disposition. Diagnosis Primary Impression: Encounter for psychological evaluation Condition: Stable Valerie Melendez Oct 16, 2017 09:38
[2017-10-16 10:08] LABS: AUTOMATED NEUTROPHIL # 2.1 TH/MM3 (1.8-7.7); BASOPHIL % 0.6 % (0.0-2.0); EOSINOPHIL # 0.1 TH/MM3 (0-0.4); EOSINOPHIL % 2.4 % (0.0-4.0); HEMATOCRIT 38.4 % (39.0-51.0); HEMOGLOBIN 13.1 GM/DL (13.0-17.0); LYMPH % 29.9 % (9.0-44.0); LYMPHOCYTE # 1.2 TH/MM3 (1.0-4.8); MEAN CELL VOLUME 90.7 FL (80.0-100.0); MEAN CORPUSCULAR HEMOGLOBIN 30.9 PG (27.0-34.0); MEAN CORPUSCULAR HGB CONC 34.1 % (32.0-36.0); MEAN PLATELET VOLUME 6.7 FL (7.0-11.0); MONO % 12.7 % (0.0-8.0); MONOCYTE # 0.5 TH/MM3 (0-0.9); NEUT % 54.4 % (16.0-70.0); PLATELET COUNT 249 TH/MM3 (150-450); RED BLOOD COUNT 4.24 MIL/MM3 (4.50-5.90); RED CELL DISTRIBUTION WIDTH 14.4 % (11.6-17.2); WHITE BLOOD COUNT 3.9 TH/MM3 (4.0-11.0)
[2017-10-16 10:37] LABS: ALBUMIN 3.5 GM/DL (3.4-5.0); AST (GOT) 57 U/L (15-37); BICARBONATE 24.2 MEQ/L (21.0-32.0); BLOOD UREA NITROGEN 17 MG/DL (7-18); CALCIUM 8.6 MG/DL (8.5-10.1); CHLORIDE 106 MEQ/L (98-107); CREATININE 1.26 MG/DL (0.60-1.30); GLOMERULAR FILTRATION RATE 71 ML/MIN (>89); GLUCOSE,RANDOM 108 MG/DL (74-106); SODIUM (NA) 137 MEQ/L (136-145)
[2017-10-16 10:39] LABS: ALKALINE PHOSPHATASE 75 U/L (45-117); ALT (GPT) 38 U/L (12-78); TOTAL BILIRUBIN ADULT 0.4 MG/DL (0.2-1.0); TOTAL PROTEIN 7.2 GM/DL (6.4-8.2)
[2017-10-16 18:08] VITALS: BP 131/81; PULSE 88; RESP 16; TEMP 98.7; O2SAT 97
[2017-10-16 23:07] VITALS: BP 109/67; PULSE 74; RESP 18; TEMP 98.7; O2SAT 100
[2017-10-17 03:00] VITALS: BP 111/69; PULSE 78; RESP 17; TEMP 97.7; O2SAT 97
--- NOTE | 2017-10-17 11:08 | PD ---
History of Present Illness Chief Complaint: Psychiatric Symptoms Time Seen by Provider: 11:00 Travel History International Travel<30 Days: No Contact w/Intl Traveler<30days: No Known affected area: No Legal Status Legal Status: Voluntary History of Present Illness: 57-year-old male presents voluntarily with reports of suicidal ideation, homicidal ideation, auditory hallucinations, visual hallucinations, etc. Patient is well known to this physician and the staff here at [facility]. He has historical diagnoses including schizophrenia and bipolar disorder. It is also felt by the staff and this physician that the patient is quite manipulative and likely came in to the hospital voluntarily because it was cold outside. Today it is Nik and warmer and the patient states he is "ready to go." He denies any suicidal or homicidal ideation, plan or intent. He denies any psychotic symptoms, including delusions, hallucinations, etc. He reports he has enough of his medications at home in [place]. He also reports he has a follow up appointment on Wednesday which she intends to make. He is verbally eliana for safety and he is competent to do so. [facility] Past Medical History Hx Anticoagulant Therapy: No Arthritis: Yes Asthma: No Autoimmune Disease: No Bipolar Disorder: Yes Anxiety: Yes Depression: Yes Heart Rhythm Problems: No Cancer: No Cardiac Catheterization: Yes Cardiovascular Problems: Yes High Cholesterol: No Chemotherapy: No Chest Pain: Yes ([place] 2002) Congestive Heart Failure: No COPD: No Cerebrovascular Accident: No Diabetes: No Diminished Hearing: No Endocrine: No Gastrointestinal Disorders: Yes GERD: Yes Genitourinary: No Headaches: No Hiatal Hernia: No Heparin Induced Thrombocytopen: Yes Hypertension: Yes Immune Disorder: No Kidney Stones: No Musculoskeletal: Yes Neurologic: Yes Psychiatric: Yes Reproductive: No Respiratory: No Immunizations Current: Yes Migraines: No Radiation Therapy: No Renal Failure: No Schizophrenia: Yes Seizures: Yes Sickle Cell Disease: No Sleep Apnea: No Thyroid Disease: No Ulcer: No Past Surgical History Abdominal Surgery: Yes (2 HERINA SX) AICD: No Arteriovenous Shunt: No Cardiac Surgery: No Coronary Artery Bypass Graft: No Ear Surgery: No Endocrine Surgery: No Eye Surgery: No Genitourinary Surgery: No Gynecologic Surgery: No Insulin Pump: No Joint Replacement: No Oral Surgery: No Pacemaker: No Thoracic Surgery: No Psychiatric History Psychiatric History Hx Psychiatric Treatment: PATIENT WAS LAST ADMITTED TO [facility] FROM 08/09/17 TO 08/17/17 FOR ADJUSTMENT DISORDER. History of Inpatient Treatment: Yes Guns or firearms in home: No Social History Hx Alcohol Use: Yes (daily) Hx Tobacco Use: Yes Hx Substance Use: No (MARIJUANA, COCAINE) Substance Use Type: Alcohol, Marijuana, Cocaine Other Substances Used: No use in about 1 week. Hx of Substance Use Treatment: Yes Allergies-Medications (Allergen,Severity, Reaction): Coded Allergies: haloperidol (Verified Adverse Reaction, Intermediate, 09/23/17) Leukopenia/neutropenia Reported Meds & Prescriptions Reported Meds & Active Scripts Active Lexapro (Escitalopram Oxalate) 20 Mg Tab 20 Mg PO DAILY Gnp Vitamin B-1 (Thiamine HCl) 100 Mg Tab 100 Mg PO DAILY 15 Days Escitalopram (Escitalopram Oxalate) 20 Mg Tab 20 Mg PO DAILY 15 Days Review of Systems Except as stated in HPI: all other systems reviewed are Neg Mental Status Examination Appearance: Appropriate Consciousness: Alert Orientation: x4 Motor Activity: Normal gait Speech: Unremarkable Language: Adequate Fund of Knowledge: Adequate Attention and Concentration: Adequate Memory: Unremarkable Mood: Appropriate Affect: Appropriate Thought Process & Associations: Intact Thought Content: Appropriate Hallucination Type: None Delusion Type: None Suicidal Ideation: No Suicidal Plan: No Suicidal Intention: No Homicidal Ideation: No Homicidal Plan: No Homicidal Intention: No Insight: Adequate Judgment: Adequate MDM Medical Decision Making Medical Record Reviewed: Yes Assessment/Plan Patient interviewed at bedside. Electronic medical record reviewed. Case discussed with nurse Mercedes. Patient does not meet criteria for Guillen act or psychiatric hospitalization and he would like to go home. This physician is aware of the patient's manipulativeness and that he may act out in the future. However, this cannot be predicted or avoided. He should be considered competent to make decisions at this time. Orders Orders Diet Regular Basic (10/17/17 Breakfast) Diet Regular Basic (10/17/17 Lunch) Results Vital Signs Date Time Temp Pulse Resp B/P (MAP) Pulse Ox O2 Delivery O2 Flow Rate FiO2 10/17/17 07:10 10/17/17 03:00 97.7 78 17 111/69 (83) 97 Room Air 1/13/18 23:07 98.7 74 18 109/67 (81) 100 Room Air 10/16/17 18:08 98.7 88 16 131/81 (98) 97 Room Air Diagnosis Primary Impression: Adjustment disorder with mixed disturbance of emotions and conduct Condition: Stable Magen Colón MD Oct 17, 2017 11:08
--- NOTE | 2017-10-17 11:08 | PD ---
Physical Exam Time Seen by Provider: 11:[address] Colón has evaluated the patient, lifted Guillen act and cleared the patient for discharge. Data Data Last Documented VS Vital Signs Date Time Temp Pulse Resp B/P (MAP) Pulse Ox O2 Delivery O2 Flow Rate FiO2 10/17/17 07:10 10/17/17 03:00 97.7 78 17 97 Room Air Orders Orders Complete Blood Count With Diff (10/16/17 08:14) Comprehensive Metabolic Panel (10/16/17 08:14) Urinalysis - C+S If Indicated (10/16/17 08:14) Psych Screen (10/16/17 08:14) Drug Screen, Random Urine (10/16/17 08:14) Diet Regular Basic (10/17/17 Breakfast) Diet Regular Basic (10/17/17 Lunch) Labs Laboratory Tests Test 10/16/17 09:00 10/16/17 09:50 Urine Color YELLOW Urine Turbidity CLEAR Urine pH 5.5 Urine Specific [place] 1.020 Urine Protein NEG mg/dL Urine Glucose (UA) NEG mg/dL Urine Ketones NEG mg/dL Urine Occult Blood NEG Urine Nitrite NEG Urine Bilirubin NEG Urine Urobilinogen 2.0 MG/DL Urine Leukocyte Esterase NEG Urine RBC 1 /hpf Urine WBC LESS THAN 1 /hpf Urine Squamous Epithelial Cells 1 /hpf Microscopic Urinalysis Comment CULT NOT INDICATED Urine Opiates Screen NEG Urine Barbiturates Screen NEG Urine Amphetamines Screen NEG Urine Benzodiazepines Screen NEG Urine Cocaine Screen POS Urine Cannabinoids Screen POS White Blood Count 3.9 TH/MM3 Red Blood Count 4.24 MIL/MM3 Hemoglobin 13.1 GM/DL Hematocrit 38.4 % Mean Corpuscular Volume 90.7 FL Mean Corpuscular Hemoglobin 30.9 PG Mean Corpuscular Hemoglobin Concent 34.1 % Red Cell Distribution Width 14.4 % Platelet Count 249 TH/MM3 Mean Platelet Volume 6.7 FL Neutrophils (%) (Auto) 54.4 % Lymphocytes (%) (Auto) 29.9 % Monocytes (%) (Auto) 12.7 % Eosinophils (%) (Auto) 2.4 % Basophils (%) (Auto) 0.6 % Neutrophils # (Auto) 2.1 TH/MM3 Lymphocytes # (Auto) 1.2 TH/MM3 Monocytes # (Auto) 0.5 TH/MM3 Eosinophils # (Auto) 0.1 TH/MM3 Basophils # (Auto) 0.0 TH/MM3 CBC Comment DIFF FINAL Differential Comment Blood Urea Nitrogen 17 MG/DL Creatinine 1.26 MG/DL Random Glucose 108 MG/DL Total Protein 7.2 GM/DL Albumin 3.5 GM/DL Calcium Level 8.6 MG/DL Alkaline Phosphatase 75 U/L Aspartate Amino Transf (AST/SGOT) 57 U/L Alanine Aminotransferase (ALT/SGPT) 38 U/L Total Bilirubin 0.4 MG/DL Sodium Level 137 MEQ/L Potassium Level 4.2 MEQ/L Chloride Level 106 MEQ/L Carbon Dioxide Level 24.2 MEQ/L Anion Gap 7 MEQ/L Estimat Glomerular Filtration Rate 71 ML/MIN MDM Supervised Visit with VIRAJ: No Narrative Course Dr. Colón has evaluated the patient, lifted Wilmer babin and cleared the patient for discharge. Patient contracts safety. Denies suicidal or homicidal ideations. Patient will be provided community resource packet to /[facility] for follow-up. Has friends and family for support. Patient was medically cleared by alternate provider prior to psych screening. Patient has been evaluated by psychiatry and and is now cleared for discharge. Diagnosis Primary Impression: Encounter for psychological evaluation Referrals: [facility] (Out patient) [facility] Primary Care Physician Psychiatrist Lily BABIN Behavioral Patient Instructions: Bipolar Disorder (ED), General Instructions, Schizoaffective Disorder (ED) Additional Instruction: Contract safety to your self and others Follow-up with psychiatry Follow-up with primary care provider Follow-up with Bryce [facility] Return to the emergency department immediately with worsening of symptoms Med/Other Pt SpecificInfo: No Change to Meds, No Meds Exist/No RX given Disposition: 01 DISCHARGE HOME Condition: Stable Valerie Melendez Oct 17, 2017 11:08
== END 2017-10-17 12:56 | disposition home or self-care (01) ==
LOC: NEPJ 00:44
DX: R45.851 Suicidal ideations (principal); F43.25 Adjustment disorder with mixed disturbance of emotions and conduct; F20.9 Schizophrenia, unspecified; F31.9 Bipolar disorder, unspecified; M19.90 Unspecified osteoarthritis, unspecified site; F41.9 Anxiety disorder, unspecified; K21.9 Gastro-esophageal reflux disease without esophagitis; I10 Essential (primary) hypertension; R56.9 Unspecified convulsions
CPT/HCPCS: 80053; 80307; 81001; 85025; 99284

== ENCOUNTER 2017-11-04 19:42 | Emergency (ER) | payer MEDICAID, OTHER ==
[~2017-11-04] VITALS: Ht 182.9 cm; Wt 90.0 kg
[2017-11-04 19:55] VITALS: BP 124/75; PULSE 91; RESP 18; TEMP 97.8; O2SAT 96
[2017-11-04 20:29] LABS: AUTOMATED NEUTROPHIL # 3.1 TH/MM3 (1.8-7.7); BASOPHIL % 0.6 % (0.0-2.0); EOSINOPHIL % 0.2 % (0.0-4.0); HEMATOCRIT 40.3 % (39.0-51.0); HEMOGLOBIN 13.9 GM/DL (13.0-17.0); LYMPHOCYTE # 0.8 TH/MM3 (1.0-4.8); MEAN CELL VOLUME 89.5 FL (80.0-100.0); MEAN CORPUSCULAR HEMOGLOBIN 30.7 PG (27.0-34.0); MEAN CORPUSCULAR HGB CONC 34.3 % (32.0-36.0); MEAN PLATELET VOLUME 6.5 FL (7.0-11.0); MONO % 9.1 % (0.0-8.0); MONOCYTE # 0.4 TH/MM3 (0-0.9); NEUT % 71.1 % (16.0-70.0); PLATELET COUNT 273 TH/MM3 (150-450); RED BLOOD COUNT 4.51 MIL/MM3 (4.50-5.90); WHITE BLOOD COUNT 4.4 TH/MM3 (4.0-11.0)
[2017-11-04 20:50] LABS: ALBUMIN 3.7 GM/DL (3.4-5.0); ALKALINE PHOSPHATASE 62 U/L (45-117); ALT (GPT) 26 U/L (12-78); AST (GOT) 38 U/L (15-37); BICARBONATE 21.8 MEQ/L (21.0-32.0); BLOOD UREA NITROGEN 23 MG/DL (7-18); CALCIUM 8.9 MG/DL (8.5-10.1); CHLORIDE 108 MEQ/L (98-107); CREATININE 1.36 MG/DL (0.60-1.30); GLOMERULAR FILTRATION RATE 65 ML/MIN (>89); GLUCOSE,RANDOM 95 MG/DL (74-106); SODIUM (NA) 141 MEQ/L (136-145); TOTAL BILIRUBIN ADULT 0.4 MG/DL (0.2-1.0); TOTAL PROTEIN 7.7 GM/DL (6.4-8.2)
[2017-11-04 20:51] LABS: ACETAMINOPHEN LESS THAN 2.0 MCG/ML (10.0-30.0)
--- NOTE | 2017-11-04 21:29 | PD ---
HPI Chief Complaint: Psychiatric Symptoms Time Seen by Provider: 21:24 Travel History International Travel<30 days: No Contact w/Intl Traveler<30days: No Traveled to known affect area: No History of Present Illness HPI 57-year-old male with history of bipolar disorder presents to the emergency room under Guillen act initiated by police department. According to the patient, he was acting out angrily towards his 82-year-old mother. She called 911. Patient has been off of his medications. He denies suicidal homicidal ideation. Denies hallucinations or delusions. States he smoked cocaine tonight and drink alcohol. PFSH Past Medical History Hx Anticoagulant Therapy: No Arthritis: Yes Asthma: No Autoimmune Disease: No Bipolar Disorder: Yes Anxiety: Yes Depression: Yes Heart Rhythm Problems: No Cancer: No Cardiac Catheterization: Yes Cardiovascular Problems: Yes High Cholesterol: No Chemotherapy: No Chest Pain: Yes ([place] 2002) Congestive Heart Failure: No COPD: No Cerebrovascular Accident: No Diabetes: No Diminished Hearing: No Endocrine: No Gastrointestinal Disorders: Yes GERD: Yes Genitourinary: No Headaches: No Hiatal Hernia: No Heparin Induced Thrombocytopen: Yes Hypertension: Yes Immune Disorder: No Kidney Stones: No Musculoskeletal: Yes Neurologic: Yes Psychiatric: Yes Reproductive: No Respiratory: No Immunizations Current: Yes Migraines: No Radiation Therapy: No Renal Failure: No Schizophrenia: Yes Seizures: Yes Sickle Cell Disease: No Sleep Apnea: No Thyroid Disease: No Ulcer: No Tetanus Vaccination: < 5 Years Influenza Vaccination: Yes Past Surgical History Abdominal Surgery: Yes (2 HERINA SX) AICD: No Arteriovenous Shunt: No Cardiac Surgery: No Coronary Artery Bypass Graft: No Ear Surgery: No Endocrine Surgery: No Eye Surgery: No Genitourinary Surgery: No Gynecologic Surgery: No Insulin Pump: No Joint Replacement: No Oral Surgery: No Pacemaker: No Thoracic Surgery: No Social History Alcohol Use: Yes (daily) Tobacco Use: Yes Substance Use: No (MARIJUANA, COCAINE) Allergies-Medications (Allergen,Severity, Reaction): Coded Allergies: haloperidol (Verified Adverse Reaction, Intermediate, 11/04/17) Leukopenia/neutropenia Reported Meds & Prescriptions Reported Meds & Active Scripts Active Lexapro (Escitalopram Oxalate) 20 Mg Tab 20 Mg PO DAILY Gnp Vitamin B-1 (Thiamine HCl) 100 Mg Tab 100 Mg PO DAILY 15 Days Escitalopram (Escitalopram Oxalate) 20 Mg Tab 20 Mg PO DAILY 15 Days Review of Systems Except as stated in HPI: all other systems reviewed are Neg Physical Exam Narrative GENERAL: Well-nourished, well-developed male in no acute distress. Afebrile. Ambulatory. SKIN: Focused skin assessment warm/dry. HEAD: Normocephalic. EYES: No scleral icterus. No injection or drainage. NECK: Supple, trachea midline. No JVD or lymphadenopathy. CARDIOVASCULAR: Regular rate and rhythm without murmurs, gallops, or rubs. RESPIRATORY: Breath sounds equal bilaterally. No accessory muscle use. PSYCHIATRIC: No delusional thought processes. No hallucinations. Data Data Last Documented VS Vital Signs Date Time Temp Pulse Resp B/P (MAP) Pulse Ox O2 Delivery O2 Flow Rate FiO2 11/04/17 19:55 97.8 91 18 124/75 (91) 96 Orders Orders Complete Blood Count With Diff (11/04/17 20:03) Comprehensive Metabolic Panel (11/04/17 20:03) Psych Screen (11/04/17 20:03) Drug Screen, Random Urine (11/04/17 20:03) Alcohol (Ethanol) (11/04/17 20:03) Salicylates (Aspirin) (11/04/17 20:03) Tylenol (Acetaminophen) (11/04/17 20:03) Labs Laboratory Tests Test 11/04/17 20:15 White Blood Count 4.4 TH/MM3 Red Blood Count 4.51 MIL/MM3 Hemoglobin 13.9 GM/DL Hematocrit 40.3 % Mean Corpuscular Volume 89.5 FL Mean Corpuscular Hemoglobin 30.7 PG Mean Corpuscular Hemoglobin Concent 34.3 % Red Cell Distribution Width 14.0 % Platelet Count 273 TH/MM3 Mean Platelet Volume 6.5 FL Neutrophils (%) (Auto) 71.1 % Lymphocytes (%) (Auto) 19.0 % Monocytes (%) (Auto) 9.1 % Eosinophils (%) (Auto) 0.2 % Basophils (%) (Auto) 0.6 % Neutrophils # (Auto) 3.1 TH/MM3 Lymphocytes # (Auto) 0.8 TH/MM3 Monocytes # (Auto) 0.4 TH/MM3 Eosinophils # (Auto) 0.0 TH/MM3 Basophils # (Auto) 0.0 TH/MM3 CBC Comment DIFF FINAL Differential Comment Blood Urea Nitrogen 23 MG/DL Creatinine 1.36 MG/DL Random Glucose 95 MG/DL Total Protein 7.7 GM/DL Albumin 3.7 GM/DL Calcium Level 8.9 MG/DL Alkaline Phosphatase 62 U/L Aspartate Amino Transf (AST/SGOT) 38 U/L Alanine Aminotransferase (ALT/SGPT) 26 U/L Total Bilirubin 0.4 MG/DL Sodium Level 141 MEQ/L Potassium Level 3.8 MEQ/L Chloride Level 108 MEQ/L Carbon Dioxide Level 21.8 MEQ/L Anion Gap 11 MEQ/L Estimat Glomerular Filtration Rate 65 ML/MIN Salicylates Level 2.0 MG/DL Urine Opiates Screen NEG Acetaminophen Level LESS THAN 2.0 MCG/ML Urine Barbiturates Screen NEG Urine Amphetamines Screen NEG Urine Benzodiazepines Screen NEG Urine Cocaine Screen POS Urine Cannabinoids Screen NEG Ethyl Alcohol Level 215 MG/DL MDM Medical Decision Making Medical Screen Exam Complete: Yes Emergency Medical Condition: Yes Medical Record Reviewed: Yes Differential Diagnosis Malingering, adjustment disorder, alcohol intoxication, polysubstance abuse, cocaine abuse Narrative Course 57-year-old male presents to the emergency room under a Guillen act initiated by police department. Patient is bipolar and off of his medications. His mother called 911 when he began to act out. States he was angry about his sister's and 1999. Admits to smoking cocaine and drinking alcohol tonight. Denies any suicidal or homicidal ideations, hallucinations, or delusions. Patient is well-appearing. Interacting appropriately. CBC is completely unremarkable. CMP shows mild elevation of creatinine, stable from previous. Drug screen is consistent with patient's story. He is medically cleared for psychiatric evaluation. Condition: Stable Raquel Lynch Nov 04, 2017 21:29
[2017-11-05 06:33] VITALS: BP 132/75; PULSE 83; RESP 18; O2SAT 99
--- NOTE | 2017-11-05 09:38 | PD ---
Physical Exam Date Seen by Provider: Nov 05, 2017 Time Seen by Provider: 09:36 Narrative 57-year-old male previously evaluated and medically cleared for psychiatric evaluation, has been seen by psychiatric services and cleared for discharge to the [facility]. Patient remains medically stable at discharge. Data Data Last Documented VS Vital Signs Date Time Temp Pulse Resp B/P (MAP) Pulse Ox O2 Delivery O2 Flow Rate FiO2 11/05/17 09:18 11/05/17 06:33 83 18 99 Room Air 11/04/17 19:55 97.8 Orders Orders Complete Blood Count With Diff (11/04/17 20:03) Comprehensive Metabolic Panel (11/04/17 20:03) Psych Screen (11/04/17 20:03) Drug Screen, Random Urine (11/04/17 20:03) Alcohol (Ethanol) (11/04/17 20:03) Salicylates (Aspirin) (11/04/17 20:03) Tylenol (Acetaminophen) (11/04/17 20:03) Diet Regular Basic (11/05/17 Breakfast) Labs Laboratory Tests Test 11/04/17 20:15 White Blood Count 4.4 TH/MM3 Red Blood Count 4.51 MIL/MM3 Hemoglobin 13.9 GM/DL Hematocrit 40.3 % Mean Corpuscular Volume 89.5 FL Mean Corpuscular Hemoglobin 30.7 PG Mean Corpuscular Hemoglobin Concent 34.3 % Red Cell Distribution Width 14.0 % Platelet Count 273 TH/MM3 Mean Platelet Volume 6.5 FL Neutrophils (%) (Auto) 71.1 % Lymphocytes (%) (Auto) 19.0 % Monocytes (%) (Auto) 9.1 % Eosinophils (%) (Auto) 0.2 % Basophils (%) (Auto) 0.6 % Neutrophils # (Auto) 3.1 TH/MM3 Lymphocytes # (Auto) 0.8 TH/MM3 Monocytes # (Auto) 0.4 TH/MM3 Eosinophils # (Auto) 0.0 TH/MM3 Basophils # (Auto) 0.0 TH/MM3 CBC Comment DIFF FINAL Differential Comment Blood Urea Nitrogen 23 MG/DL Creatinine 1.36 MG/DL Random Glucose 95 MG/DL Total Protein 7.7 GM/DL Albumin 3.7 GM/DL Calcium Level 8.9 MG/DL Alkaline Phosphatase 62 U/L Aspartate Amino Transf (AST/SGOT) 38 U/L Alanine Aminotransferase (ALT/SGPT) 26 U/L Total Bilirubin 0.4 MG/DL Sodium Level 141 MEQ/L Potassium Level 3.8 MEQ/L Chloride Level 108 MEQ/L Carbon Dioxide Level 21.8 MEQ/L Anion Gap 11 MEQ/L Estimat Glomerular Filtration Rate 65 ML/MIN Salicylates Level 2.0 MG/DL Urine Opiates Screen NEG Acetaminophen Level LESS THAN 2.0 MCG/ML Urine Barbiturates Screen NEG Urine Amphetamines Screen NEG Urine Benzodiazepines Screen NEG Urine Cocaine Screen POS Urine Cannabinoids Screen NEG Ethyl Alcohol Level 215 MG/DL [facility] Medical Record Reviewed: Yes Supervised Visit with VIRAJ: Yes Narrative Course 57-year-old male previously evaluated and medically cleared for psychiatric evaluation, has been seen by psychiatric services and cleared for discharge to the [facility]. Patient remains medically stable at discharge. Diagnosis Primary Impression: Adjustment disorder with mixed disturbance of emotions and conduct Patient Instructions: General Instructions Departure Forms: Tests/Procedures Med/Other Pt SpecificInfo: No Change to Meds Disposition: 65 DISC TO [facility] Condition: Stable Manuel Salguero Nov 05, 2017 09:38
== END 2017-11-05 09:26 ==
LOC: NEDAMB 19:42 → NEPD 11-05 09:26
DX: F43.25 Adjustment disorder with mixed disturbance of emotions and conduct (principal); F31.9 Bipolar disorder, unspecified; M19.90 Unspecified osteoarthritis, unspecified site; F41.9 Anxiety disorder, unspecified; K21.9 Gastro-esophageal reflux disease without esophagitis; I10 Essential (primary) hypertension; F20.9 Schizophrenia, unspecified; R56.9 Unspecified convulsions; Z72.0 Tobacco use
CPT/HCPCS: 80053; 80307; 85025; 99285

== ENCOUNTER 2017-11-20 04:33 | Emergency (ER) | payer MEDICAID, OTHER ==
[~2017-11-20] VITALS: Ht 172.7 cm; Wt 72.0 kg
[2017-11-20 04:39] VITALS: BP 92/58; PULSE 92; RESP 18; TEMP 98.6; O2SAT 97
[2017-11-20] MEDS ORDERED: RISP.25 PO (04:48)
--- NOTE | 2017-11-20 05:26 | PD ---
HPI Chief Complaint: Psychiatric Symptoms Time Seen by Provider: 04:43 Travel History International Travel<30 days: No Contact w/Intl Traveler<30days: No Traveled to known affect area: No History of Present Illness HPI 57-year-old black male presents emergency department under a Guillen act by PD. The patient advised PD that he was feeling acutely suicidal. He had been drinking alcohol smoking cigarettes, smoking marijuana, smoking K2, and crack cocaine. The patient states that he has contemplated suicide. He was going to overdose on drugs. He denies any toxic ingestion. No homicidal ideation. No recent illness. This is a patient well-known to the medical staff and myself for prior admissions. PFSH Past Medical History Hx Anticoagulant Therapy: No Arthritis: Yes Asthma: No Autoimmune Disease: No Bipolar Disorder: Yes Anxiety: Yes Depression: Yes Heart Rhythm Problems: No Cancer: No Cardiac Catheterization: Yes Cardiovascular Problems: Yes High Cholesterol: No Chemotherapy: No Chest Pain: Yes ([place] 2002) Congestive Heart Failure: No COPD: No Cerebrovascular Accident: No Diabetes: No Patient Takes Glucophage: No Diminished Hearing: No Endocrine: No Gastrointestinal Disorders: Yes GERD: Yes Genitourinary: No Headaches: No Hiatal Hernia: No Heparin Induced Thrombocytopen: Yes Hypertension: Yes Immune Disorder: No Kidney Stones: No Musculoskeletal: Yes Neurologic: Yes Psychiatric: Yes Reproductive: No Respiratory: No Immunizations Current: Yes Migraines: No Radiation Therapy: No Renal Failure: No Schizophrenia: Yes Seizures: Yes Sickle Cell Disease: No Sleep Apnea: No Thyroid Disease: No Ulcer: No Tetanus Vaccination: < 5 Years Influenza Vaccination: Yes Past Surgical History Abdominal Surgery: Yes (2 HERINA SX) AICD: No Arteriovenous Shunt: No Cardiac Surgery: No Coronary Artery Bypass Graft: No Ear Surgery: No Endocrine Surgery: No Eye Surgery: No Genitourinary Surgery: No Gynecologic Surgery: No Insulin Pump: No Joint Replacement: No Oral Surgery: No Pacemaker: No Thoracic Surgery: No Social History Alcohol Use: Yes (daily) Tobacco Use: Yes Substance Use: Yes Allergies-Medications (Allergen,Severity, Reaction): Coded Allergies: haloperidol (Verified Adverse Reaction, Intermediate, 11/20/17) Leukopenia/neutropenia Reported Meds & Prescriptions Reported Meds & Active Scripts Active Reported Risperdal (Risperidone) 0.25 Mg Tab 0.25 Mg PO DAILY Review of Systems Except as stated in HPI: all other systems reviewed are Neg Psychiatric: Positive: Depression, Suicidal Ideations, Mood Disorder, Substance Abuse, No: Disorder of Thought, Homicidal Ideation Physical Exam Narrative GENERAL: Well-nourished, well-developed patient. SKIN: Warm and dry. HEAD: Normocephalic and atraumatic. EYES: No scleral icterus. No injection or drainage. ENT: No nasal drainage noted. Mucous membranes pink. Airway patent. NECK: Supple, trachea midline. Moves head freely without obvious discomfort. CARDIOVASCULAR: Regular rate and rhythm without murmurs, gallops, or rubs. RESPIRATORY: Breath sounds equal bilaterally. No accessory muscle use. GASTROINTESTINAL: Abdomen soft, non-tender, nondistended. EXTREMITIES: No cyanosis or edema. BACK: Nontender without obvious deformity. No CVA tenderness. NEURO: Patient is alert and oriented. no sensorimotor deficits. Nonfocal. Normal speech. PSYCH: No delusions. No auditory or visual hallucinations. Data Data Last Documented VS Vital Signs Date Time Temp Pulse Resp B/P (MAP) Pulse Ox O2 Delivery O2 Flow Rate FiO2 11/20/17 04:39 98.6 92 18 92/58 (69) 97 Orders Orders Comprehensive Metabolic Panel (11/20/17 04:49) Psych Screen (11/20/17 04:49) Drug Screen, Random Urine (11/20/17 04:49) Labs Laboratory Tests Test 11/20/17 05:00 Blood Urea Nitrogen 18 MG/DL Creatinine 1.26 MG/DL Random Glucose 46 MG/DL Total Protein 7.0 GM/DL Albumin 3.8 GM/DL Calcium Level 8.6 MG/DL Alkaline Phosphatase 56 U/L Aspartate Amino Transf (AST/SGOT) 94 U/L Alanine Aminotransferase (ALT/SGPT) 48 U/L Total Bilirubin 0.5 MG/DL Sodium Level 141 MEQ/L Potassium Level 4.5 MEQ/L Chloride Level 108 MEQ/L Carbon Dioxide Level 23.6 MEQ/L Anion Gap 9 MEQ/L Estimat Glomerular Filtration Rate 71 ML/MIN Urine Opiates Screen NEG Urine Barbiturates Screen NEG Urine Amphetamines Screen NEG Urine Benzodiazepines Screen NEG Urine Cocaine Screen POS Urine Cannabinoids Screen NEG MDM Medical Decision Making Medical Screen Exam Complete: Yes Emergency Medical Condition: Yes Medical Record Reviewed: Yes Interpretation(s) Laboratory Tests Test 11/20/17 05:00 Blood Urea Nitrogen 18 MG/DL Creatinine 1.26 MG/DL Random Glucose 46 MG/DL Total Protein 7.0 GM/DL Albumin 3.8 GM/DL Calcium Level 8.6 MG/DL Alkaline Phosphatase 56 U/L Aspartate Amino Transf (AST/SGOT) 94 U/L Alanine Aminotransferase (ALT/SGPT) 48 U/L Total Bilirubin 0.5 MG/DL Sodium Level 141 MEQ/L Potassium Level 4.5 MEQ/L Chloride Level 108 MEQ/L Carbon Dioxide Level 23.6 MEQ/L Anion Gap 9 MEQ/L Estimat Glomerular Filtration Rate 71 ML/MIN Urine Opiates Screen NEG Urine Barbiturates Screen NEG Urine Amphetamines Screen NEG Urine Benzodiazepines Screen NEG Urine Cocaine Screen POS Urine Cannabinoids Screen NEG Differential Diagnosis MDM: High Differential diagnoses: Schizophrenia, schizoaffective disorder, bipolar, anxiety, depression, adjustment reaction, mood disorder NOS, ODD, depressive disorder NOS, dementia, dementia with agitation, psychosis NOS, substance induced mood disorder, DMDD, Asperger syndrome, infection,electrolyte abnormality, malingering. Narrative Course Mental health screening discussed with the patient. Psychiatric screen ordered. Patient's given crackers and juice to eat. His blood sugar was noted to be low. The patient has been medically cleared. This is medical clearance for psychiatric admission, polysubstance abuse Diagnosis Primary Impression: Medical clearance for psychiatric admission Additional Impression: Polysubstance abuse Condition: Stable Rocco Chase Nov 20, 2017 05:26
[2017-11-20 05:42] LABS: ALBUMIN 3.8 GM/DL (3.4-5.0); ALT (GPT) 48 U/L (12-78); AST (GOT) 94 U/L (15-37); BICARBONATE 23.6 MEQ/L (21.0-32.0); BLOOD UREA NITROGEN 18 MG/DL (7-18); CALCIUM 8.6 MG/DL (8.5-10.1); CHLORIDE 108 MEQ/L (98-107); CREATININE 1.26 MG/DL (0.60-1.30); GLOMERULAR FILTRATION RATE 71 ML/MIN (>89); SODIUM (NA) 141 MEQ/L (136-145)
[2017-11-20 05:44] LABS: ALKALINE PHOSPHATASE 56 U/L (45-117); TOTAL BILIRUBIN ADULT 0.5 MG/DL (0.2-1.0)
[2017-11-20 05:48] LABS: GLUCOSE,RANDOM 46 MG/DL (74-106)
[2017-11-20 09:26] VITALS: BP 119/64; PULSE 91; RESP 17; O2SAT 99
[2017-11-20 18:15] VITALS: BP 114/66; PULSE 71; RESP 16; TEMP 98.6; O2SAT 97
[2017-11-20 20:54] VITALS: BP 117/56; PULSE 75; RESP 18; TEMP 98; O2SAT 97
[2017-11-21 05:39] VITALS: BP 116/63; PULSE 81; RESP 17; TEMP 99; O2SAT 100
[2017-11-21 08:42] VITALS: BP 126/72; PULSE 68; RESP 20; TEMP 98.6; O2SAT 95
--- NOTE | 2017-11-21 08:45 | PD ---
Physical Exam Date Seen by Provider: Nov 21, 2017 Time Seen by Provider: 08:44 Narrative 57-year-old male previously medically cleared for psychiatric evaluation, has been seen by psychiatric staff who felt the patient warranted to be transferred to the [facility]. He remains medically stable at this time. Data Data Last Documented VS Vital Signs Date Time Temp Pulse Resp B/P (MAP) Pulse Ox O2 Delivery O2 Flow Rate FiO2 11/21/17 08:42 98.6 68 20 126/72 (90) 95 11/21/17 05:39 Room Air Orders Orders Comprehensive Metabolic Panel (11/20/17 04:49) Psych Screen (11/20/17 04:49) Drug Screen, Random Urine (11/20/17 04:49) Diet Regular Basic (11/20/17 Breakfast) Diet Regular Basic (11/20/17 Lunch) Diet Regular Basic (11/20/17 Dinner) Diet Regular Basic (11/21/17 Breakfast) Labs Laboratory Tests Test 11/20/17 05:00 Blood Urea Nitrogen 18 MG/DL Creatinine 1.26 MG/DL Random Glucose 46 MG/DL Total Protein 7.0 GM/DL Albumin 3.8 GM/DL Calcium Level 8.6 MG/DL Alkaline Phosphatase 56 U/L Aspartate Amino Transf (AST/SGOT) 94 U/L Alanine Aminotransferase (ALT/SGPT) 48 U/L Total Bilirubin 0.5 MG/DL Sodium Level 141 MEQ/L Potassium Level 4.5 MEQ/L Chloride Level 108 MEQ/L Carbon Dioxide Level 23.6 MEQ/L Anion Gap 9 MEQ/L Estimat Glomerular Filtration Rate 71 ML/MIN Urine Opiates Screen NEG Urine Barbiturates Screen NEG Urine Amphetamines Screen NEG Urine Benzodiazepines Screen NEG Urine Cocaine Screen POS Urine Cannabinoids Screen NEG MDM Medical Record Reviewed: Yes Supervised Visit with VIRAJ: Yes Narrative Course 57-year-old male previously medically cleared for psychiatric evaluation, has been seen by psychiatric staff who felt the patient warranted to be transferred to the [facility]. He remains medically stable at this time. Diagnosis Primary Impression: Medical clearance for psychiatric admission Additional Impression: Polysubstance abuse Disposition: 65 DISC TO PSYCH CARE FACILITY Condition: Stable Manuel Salguero Nov 21, 2017 08:44
== END 2017-11-21 09:56 ==
LOC: NEPD 04:33 → NEPJ 11-21 09:56
DX: F19.10 Other psychoactive substance abuse, uncomplicated (principal); F14.10 Cocaine abuse, uncomplicated; F12.10 Cannabis abuse, uncomplicated; M19.90 Unspecified osteoarthritis, unspecified site; F31.9 Bipolar disorder, unspecified; F41.9 Anxiety disorder, unspecified; I10 Essential (primary) hypertension; F17.210 Nicotine dependence, cigarettes, uncomplicated; Z79.899 Other long term (current) drug therapy
CPT/HCPCS: 80053; 80307; 99285

== ENCOUNTER 2017-12-09 05:35 | Emergency (ER) | payer MEDICAID, OTHER ==
[~2017-12-09 05:35] MED LIST changes: -ESCI20TA PO; -LEXA20TA PO; +RISP.25 PO; -THIA100 PO
[2017-12-09 05:42] VITALS: BP 141/77; PULSE 102; RESP 18; TEMP 98.3; O2SAT 97
--- NOTE | 2017-12-09 05:50 | PD ---
HPI Chief Complaint: Psychiatric Symptoms Time Seen by Provider: 05:48 Travel History International Travel<30 days: No Contact w/Intl Traveler<30days: No Traveled to known affect area: No History of Present Illness HPI 57-year-old male with reported history of bipolar disorder and schizophrenia presents voluntarily brought in by police for psychiatric evaluation. The patient reports that since yesterday evening he has been having auditory hallucinations. Specifically he has been hearing the voice of his sister. He reports that throughout the day today he has been having homicidal thoughts, specifically of killing a man that killed his sister. He reports that today he used cocaine and drink alcohol in order to dampen the voices but they persisted and this is what prompted evaluation. He denies any suicidal ideation. He has no other complaints at this time. PFSH Past Medical History Hx Anticoagulant Therapy: No Arthritis: Yes Asthma: No Autoimmune Disease: No Bipolar Disorder: Yes Anxiety: Yes Depression: Yes Heart Rhythm Problems: No Cancer: No Cardiac Catheterization: Yes Cardiovascular Problems: Yes High Cholesterol: No Chemotherapy: No Chest Pain: Yes ([place] 2002) Congestive Heart Failure: No COPD: No Cerebrovascular Accident: No Diabetes: No Diminished Hearing: No Endocrine: No Gastrointestinal Disorders: Yes GERD: Yes Genitourinary: No Headaches: No Hiatal Hernia: No Heparin Induced Thrombocytopen: Yes Hypertension: Yes Immune Disorder: No Kidney Stones: No Musculoskeletal: Yes Neurologic: Yes Psychiatric: Yes Reproductive: No Respiratory: No Immunizations Current: Yes Migraines: No Radiation Therapy: No Renal Failure: No Schizophrenia: Yes Seizures: Yes Sickle Cell Disease: No Sleep Apnea: No Thyroid Disease: No Ulcer: No Tetanus Vaccination: < 5 Years Influenza Vaccination: Yes Past Surgical History Abdominal Surgery: Yes (2 HERINA SX) AICD: No Arteriovenous Shunt: No Cardiac Surgery: No Coronary Artery Bypass Graft: No Ear Surgery: No Endocrine Surgery: No Eye Surgery: No Genitourinary Surgery: No Gynecologic Surgery: No Insulin Pump: No Joint Replacement: No Oral Surgery: No Pacemaker: No Thoracic Surgery: No Social History Alcohol Use: Yes (daily) Tobacco Use: Yes Substance Use: Yes (COCAINE) Allergies-Medications (Allergen,Severity, Reaction): Coded Allergies: haloperidol (Verified Adverse Reaction, Intermediate, 12/09/17) Leukopenia/neutropenia Reported Meds & Prescriptions Reported Meds & Active Scripts Active Reported Risperdal (Risperidone) 0.25 Mg Tab 0.25 Mg PO DAILY Review of Systems Except as stated in HPI: all other systems reviewed are Neg Physical Exam Narrative GENERAL: Well-developed well-nourished male in no acute distress SKIN: Warm and dry. HEAD: Atraumatic. Normocephalic. EYES: Pupils equal and round. No scleral icterus. No injection or drainage. ENT: No nasal bleeding or discharge. Mucous membranes pink and moist. NECK: Trachea midline. No JVD. CARDIOVASCULAR: Regular rate and rhythm. No murmur appreciated. RESPIRATORY: No accessory muscle use. Clear to auscultation. Breath sounds equal bilaterally. GASTROINTESTINAL: Abdomen soft, non-tender, nondistended. Hepatic and splenic margins not palpable. MUSCULOSKELETAL: No obvious deformities. No clubbing. No cyanosis. No edema. NEUROLOGICAL: Awake and alert. No obvious cranial nerve deficits. Motor grossly within normal limits. Normal speech. PSYCHIATRIC: Anxious and agitated. Data Data Last Documented VS Vital Signs Date Time Temp Pulse Resp B/P (MAP) Pulse Ox O2 Delivery O2 Flow Rate FiO2 12/09/17 19:10 12/09/17 17:00 98.4 74 20 99 Orders Orders Complete Blood Count With Diff (12/09/17 05:48) Comprehensive Metabolic Panel (12/09/17 05:48) Thyroid Stimulating Hormone (12/09/17 05:48) Psych Screen (12/09/17 05:48) Drug Screen, Random Urine (12/09/17 05:48) Alcohol (Ethanol) (12/09/17 05:48) Olanzapine Inj (Zyprexa Inj) (12/09/17 06:00) Diet Regular Basic (12/09/17 Breakfast) Diet Regular Basic (12/09/17 Dinner) Ed Discharge Order (12/09/17 19:36) Labs Laboratory Tests Test 12/09/17 05:49 White Blood Count 6.0 TH/MM3 Red Blood Count 4.27 MIL/MM3 Hemoglobin 13.2 GM/DL Hematocrit 38.2 % Mean Corpuscular Volume 89.6 FL Mean Corpuscular Hemoglobin 31.0 PG Mean Corpuscular Hemoglobin Concent 34.6 % Red Cell Distribution Width 13.8 % Platelet Count 237 TH/MM3 Mean Platelet Volume 7.1 FL Neutrophils (%) (Auto) 66.3 % Lymphocytes (%) (Auto) 21.7 % Monocytes (%) (Auto) 10.4 % Eosinophils (%) (Auto) 1.0 % Basophils (%) (Auto) 0.6 % Neutrophils # (Auto) 3.9 TH/MM3 Lymphocytes # (Auto) 1.3 TH/MM3 Monocytes # (Auto) 0.6 TH/MM3 Eosinophils # (Auto) 0.1 TH/MM3 Basophils # (Auto) 0.0 TH/MM3 CBC Comment DIFF FINAL Differential Comment Blood Urea Nitrogen 20 MG/DL Creatinine 1.28 MG/DL Random Glucose 70 MG/DL Total Protein 7.6 GM/DL Albumin 3.6 GM/DL Calcium Level 8.3 MG/DL Alkaline Phosphatase 58 U/L Aspartate Amino Transf (AST/SGOT) 66 U/L Alanine Aminotransferase (ALT/SGPT) 46 U/L Total Bilirubin 0.3 MG/DL Sodium Level 142 MEQ/L Potassium Level 4.5 MEQ/L Chloride Level 108 MEQ/L Carbon Dioxide Level 22.3 MEQ/L Anion Gap 12 MEQ/L Estimat Glomerular Filtration Rate 70 ML/MIN Thyroid Stimulating Hormone 3rd Gen 2.730 uIU/ML Urine Opiates Screen NEG Urine Barbiturates Screen NEG Urine Amphetamines Screen NEG Urine Benzodiazepines Screen NEG Urine Cocaine Screen POS Urine Cannabinoids Screen NEG Ethyl Alcohol Level 83 MG/DL MDM Medical Decision Making Medical Screen Exam Complete: Yes Emergency Medical Condition: Yes Medical Record Reviewed: Yes Differential Diagnosis Schizophrenia, substance-induced mood disorder, acute psychosis, bipolar disorder, adjustment reaction Narrative Course 57-year-old male presents voluntarily requesting psychiatric evaluation of homicidal ideation and auditory hallucinations. He will be given Zyprexa. Mental health screening discussed with the patient. Psychiatric screen ordered. Lab work notable for positive cocaine on drug screen and alcohol level is 83. Patient is medically cleared for psychiatric disposition. This patient has been psychiatrically cleared by the psychiatric department. He has no further medical issues that would warrant additional hospitalization. He will be following up at [facility]. He is stable for discharge. Diagnosis Primary Impression: Medical clearance for psychiatric admission Larry Soriano Dec 09, 2017 05:50
[2017-12-09] MEDS ORDERED: OLANZapine IM 10 MG VIAL IM ONE (06:00)
[2017-12-09 06:08] LABS: AUTOMATED NEUTROPHIL # 3.9 TH/MM3 (1.8-7.7); BASOPHIL % 0.6 % (0.0-2.0); EOSINOPHIL # 0.1 TH/MM3 (0-0.4); HEMATOCRIT 38.2 % (39.0-51.0); HEMOGLOBIN 13.2 GM/DL (13.0-17.0); LYMPH % 21.7 % (9.0-44.0); LYMPHOCYTE # 1.3 TH/MM3 (1.0-4.8); MEAN CELL VOLUME 89.6 FL (80.0-100.0); MEAN CORPUSCULAR HGB CONC 34.6 % (32.0-36.0); MEAN PLATELET VOLUME 7.1 FL (7.0-11.0); MONO % 10.4 % (0.0-8.0); MONOCYTE # 0.6 TH/MM3 (0-0.9); NEUT % 66.3 % (16.0-70.0); PLATELET COUNT 237 TH/MM3 (150-450); RED BLOOD COUNT 4.27 MIL/MM3 (4.50-5.90); RED CELL DISTRIBUTION WIDTH 13.8 % (11.6-17.2)
[2017-12-09 06:32] LABS: ALBUMIN 3.6 GM/DL (3.4-5.0); ALT (GPT) 46 U/L (12-78); AST (GOT) 66 U/L (15-37); BICARBONATE 22.3 MEQ/L (21.0-32.0); BLOOD UREA NITROGEN 20 MG/DL (7-18); CALCIUM 8.3 MG/DL (8.5-10.1); CHLORIDE 108 MEQ/L (98-107); CREATININE 1.28 MG/DL (0.60-1.30); GLOMERULAR FILTRATION RATE 70 ML/MIN (>89); GLUCOSE,RANDOM 70 MG/DL (74-106); SODIUM (NA) 142 MEQ/L (136-145)
[2017-12-09 06:42] LABS: ALKALINE PHOSPHATASE 58 U/L (45-117); TOTAL BILIRUBIN ADULT 0.3 MG/DL (0.2-1.0); TOTAL PROTEIN 7.6 GM/DL (6.4-8.2)
[2017-12-09 12:44] VITALS: BP 108/64; PULSE 88; RESP 20; TEMP 96; O2SAT 99
[2017-12-09 17:00] VITALS: BP 114/58; PULSE 74; RESP 20; TEMP 98.4; O2SAT 99
--- NOTE | 2017-12-09 19:02 | PD ---
History of Present Illness Chief Complaint: Psychiatric Symptoms Time Seen by Provider: 18:30 Travel History International Travel<30 Days: No Contact w/Intl Traveler<30days: No Known affected area: No Legal Status Legal Status: Voluntary History of Present Illness: History of Present Illness HPI 57-year-old male, 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 The patient reports that since yesterday evening he has been having auditory hallucinations. Specifically he has been hearing the voice of his sister. He reports that throughout the day today he has been having homicidal thoughts, specifically of killing a man that killed his sister. This in context of cocaine as well as alcohol intoxication. He reports that today he used cocaine and drank alcohol. His toxicology is positive for cocaine and his blood alcohol level was 83 upon admission. The patient was monitored in control environment and presented no behavioral concerns and no suicidality. Once the patient was clinically sober he was interviewed. He is alert, oriented , engaging and cooperative. He presents no symptoms of psychosis including no hallucinations, no delusions, no paranoia. He specifically denies any homicidal ideation, intent or plan. He denies any suicidal ideation intent or plan. He states "I feel better now and I'm ready to go home. I got to learn how to let the past go." He acknowledges continued use of cocaine and alcohol which certainly exacerbate his symptoms. The patient has a girlfriend and wants to be discharged so that he can return to her home in [place]. He also states that he wants to do the right thing for his mother's sake. PFSH Past Medical History Hx Anticoagulant Therapy: No Arthritis: Yes Asthma: No Autoimmune Disease: No Bipolar Disorder: Yes Anxiety: Yes Depression: Yes Heart Rhythm Problems: No Cancer: No Cardiac Catheterization: Yes Cardiovascular Problems: Yes High Cholesterol: No Chemotherapy: No Chest Pain: Yes ([place] 2002) Congestive Heart Failure: No COPD: No Cerebrovascular Accident: No Diabetes: No Diminished Hearing: No Endocrine: No Gastrointestinal Disorders: Yes GERD: Yes Genitourinary: No Headaches: No Hiatal Hernia: No Heparin Induced Thrombocytopen: Yes Hypertension: Yes Immune Disorder: No Kidney Stones: No Musculoskeletal: Yes Neurologic: Yes Psychiatric: Yes Reproductive: No Respiratory: No Immunizations Current: Yes Migraines: No Radiation Therapy: No Renal Failure: No Schizophrenia: Yes Seizures: Yes Sickle Cell Disease: No Sleep Apnea: No Thyroid Disease: No Ulcer: No Tetanus Vaccination: < 5 Years Influenza Vaccination: Yes Past Surgical History Abdominal Surgery: Yes (2 HERINA SX) AICD: No Arteriovenous Shunt: No Cardiac Surgery: No Coronary Artery Bypass Graft: No Ear Surgery: No Endocrine Surgery: No Eye Surgery: No Genitourinary Surgery: No Gynecologic Surgery: No Insulin Pump: No Joint Replacement: No Oral Surgery: No Pacemaker: No Thoracic Surgery: No Psychiatric History Psychiatric History Hx Psychiatric Treatment: PATIENT WAS LAST ADMITTED TO [facility] FROM 08/09/17 TO 08/17/17 FOR ADJUSTMENT DISORDER. History of Inpatient Treatment: Yes Guns or firearms in home: No Social History Single male. Currently living with his girlfriend. On disability. Hx Alcohol Use: Yes (daily) Hx Tobacco Use: Yes Hx Substance Use: Yes Substance Use Type: Alcohol, Marijuana, Cocaine Other Substances Used: No use in about 1 week. Hx of Substance Use Treatment: No Family Psychiatric History Negative Allergies-Medications (Allergen,Severity, Reaction): Coded Allergies: haloperidol (Verified Adverse Reaction, Intermediate, 12/09/17) Leukopenia/neutropenia Reported Meds & Prescriptions Reported Meds & Active Scripts Active Reported Risperdal (Risperidone) 0.25 Mg Tab 0.25 Mg PO DAILY Review of Systems Psychiatric: DENIES: Anxiety, Confusion, Mood changes, Depression, Hallucinations, Agitation, Suicidal Ideation, Homicidal Ideation, Delusions Except as stated in HPI: all other systems reviewed are Neg Mental Status Examination Appearance: Appropriate (in hospital attire) Consciousness: Alert Orientation: x4 Motor Activity: Normal gait Speech: Unremarkable Language: Adequate Fund of Knowledge: Adequate Attention and Concentration: Adequate Memory: Unremarkable Mood: Appropriate Affect: Appropriate Thought Process & Associations: Intact, Logical, Goal directed Thought Content: Appropriate Hallucination Type: None Delusion Type: None Suicidal Ideation: No Suicidal Plan: No Suicidal Intention: No Homicidal Ideation: No Homicidal Plan: No Homicidal Intention: No Insight: Poor Judgment: Impulsive MDM Medical Decision Making Medical Record Reviewed: Yes Assessment/Plan 57-year-old male, 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 The patient reports that since yesterday evening he has been having auditory hallucinations. Specifically he has been hearing the voice of his sister. He reports that throughout the day today he has been having homicidal thoughts, specifically of killing a man that killed his sister. This in context of cocaine as well as alcohol intoxication. He reports that today he used cocaine and drank alcohol. His toxicology is positive for cocaine and his blood alcohol level was 83 upon admission. The patient was monitored in control environment and presented no behavioral concerns and no suicidality. Once clinically sober the patient requested to be discharge and denies any homicidal or suicidal ideation, intent or plan. He does not present any evidence of unstable mental illness. He is counseled regarding continued use of substances. Recommend abstinence. Follow-up with . Shanika babin. Psychiatrically clear for discharge. Orders Orders Complete Blood Count With Diff (12/09/17 05:48) Comprehensive Metabolic Panel (12/09/17 05:48) Thyroid Stimulating Hormone (12/09/17 05:48) Psych Screen (12/09/17 05:48) Drug Screen, Random Urine (12/09/17 05:48) Alcohol (Ethanol) (12/09/17 05:48) Olanzapine Inj (Zyprexa Inj) (12/09/17 06:00) Diet Regular Basic (12/09/17 Breakfast) Diet Regular Basic (12/09/17 Dinner) Results Vital Signs Date Time Temp Pulse Resp B/P (MAP) Pulse Ox O2 Delivery O2 Flow Rate FiO2 12/09/17 17:00 98.4 74 20 114/58 (76) 99 12/09/17 12:44 96.0 88 20 108/64 (79) 99 12/09/17 05:42 98.3 102 18 141/77 (98) 97 Laboratory Tests Test 12/09/17 05:49 White Blood Count 6.0 Red Blood Count 4.27 Hemoglobin 13.2 Hematocrit 38.2 Mean Corpuscular Volume 89.6 Mean Corpuscular Hemoglobin 31.0 Mean Corpuscular Hemoglobin Concent 34.6 Red Cell Distribution Width 13.8 Platelet Count 237 Mean Platelet Volume 7.1 Neutrophils (%) (Auto) 66.3 Lymphocytes (%) (Auto) 21.7 Monocytes (%) (Auto) 10.4 Eosinophils (%) (Auto) 1.0 Basophils (%) (Auto) 0.6 Neutrophils # (Auto) 3.9 Lymphocytes # (Auto) 1.3 Monocytes # (Auto) 0.6 Eosinophils # (Auto) 0.1 Basophils # (Auto) 0.0 CBC Comment DIFF FINAL Differential Comment Blood Urea Nitrogen 20 Creatinine 1.28 Random Glucose 70 Total Protein 7.6 Albumin 3.6 Calcium Level 8.3 Alkaline Phosphatase 58 Aspartate Amino Transf (AST/SGOT) 66 Alanine Aminotransferase (ALT/SGPT) 46 Total Bilirubin 0.3 Sodium Level 142 Potassium Level 4.5 Chloride Level 108 Carbon Dioxide Level 22.3 Anion Gap 12 Estimat Glomerular Filtration Rate 70 Thyroid Stimulating Hormone 3rd Gen 2.730 Urine Opiates Screen NEG Urine Barbiturates Screen NEG Urine Amphetamines Screen NEG Urine Benzodiazepines Screen NEG Urine Cocaine Screen POS Urine Cannabinoids Screen NEG Ethyl Alcohol Level 83 Diagnosis Primary Impression: Medical clearance for psychiatric admission Additional Impressions: Substance abuse Drug-induced mood disorder Psychiatrically Cleared: Yes Med/ Other Pt Specific Info: No Change to Meds Disposition: 01 DISCHARGE HOME Condition: Stable Problem Qualifiers Yuko Heller Dec 09, 2017 19:02
== END 2017-12-09 19:51 | disposition home or self-care (01) ==
LOC: NEPD 05:35 → NEPJ 19:51
DX: F19.14 Other psychoactive substance abuse with psychoactive substance-induced mood disorder (principal); F10.10 Alcohol abuse, uncomplicated; Y90.4 Blood alcohol level of 80-99 mg/100 ml; F31.9 Bipolar disorder, unspecified; F20.9 Schizophrenia, unspecified; I10 Essential (primary) hypertension; F14.90 Cocaine use, unspecified, uncomplicated; F12.90 Cannabis use, unspecified, uncomplicated; Z72.0 Tobacco use
CPT/HCPCS: 80053; 80307; 84443; 85025; 96372

== ENCOUNTER 2018-01-03 00:46 | Emergency (ER) | payer MEDICAID, OTHER ==
[~2018-01-03] VITALS: Ht 185.4 cm; Wt 85.0 kg
[2018-01-03 00:58] VITALS: BP 121/75; PULSE 98; RESP 18; TEMP 98.5; O2SAT 99
[2018-01-03 03:14] LABS: BASOPHIL % 0.5 % (0.0-2.0); EOSINOPHIL % 0.3 % (0.0-4.0); HEMATOCRIT 41.3 % (39.0-51.0); LYMPH % 24.4 % (9.0-44.0); LYMPHOCYTE # 1.4 TH/MM3 (1.0-4.8); MEAN CELL VOLUME 90.8 FL (80.0-100.0); MEAN CORPUSCULAR HEMOGLOBIN 30.7 PG (27.0-34.0); MEAN CORPUSCULAR HGB CONC 33.8 % (32.0-36.0); MEAN PLATELET VOLUME 7.5 FL (7.0-11.0); MONO % 5.7 % (0.0-8.0); MONOCYTE # 0.3 TH/MM3 (0-0.9); NEUT % 69.1 % (16.0-70.0); PLATELET COUNT 197 TH/MM3 (150-450); RED BLOOD COUNT 4.54 MIL/MM3 (4.50-5.90); RED CELL DISTRIBUTION WIDTH 13.6 % (11.6-17.2); WHITE BLOOD COUNT 5.8 TH/MM3 (4.0-11.0)
[2018-01-03 04:00] LABS: ALBUMIN 3.9 GM/DL (3.4-5.0); ALT (GPT) 50 U/L (12-78); AST (GOT) 75 U/L (15-37); BLOOD UREA NITROGEN 23 MG/DL (7-18); CALCIUM 8.8 MG/DL (8.5-10.1); CHLORIDE 108 MEQ/L (98-107); CREATININE 1.59 MG/DL (0.60-1.30); GLOMERULAR FILTRATION RATE 54 ML/MIN (>89); GLUCOSE,RANDOM 75 MG/DL (74-106); SODIUM (NA) 142 MEQ/L (136-145)
--- NOTE | 2018-01-03 04:00 | PD ---
HPI Chief Complaint: Psychiatric Symptoms Time Seen by Provider: 03:32 Travel History International Travel<30 days: No Contact w/Intl Traveler<30days: No Traveled to known affect area: No History of Present Illness HPI 57-year-old man, well-known to the emergency department, presents from [facility] for [facility] for psychiatric evaluation. Patient states his been hearing voices, and feeling more suicidal. States that the symptoms are related to when he thinks about his sister. States that instead of taking his medications he has been taking illicit drugs, and that he really is "trying to kill myself with illicit drugs". States stress has been more recently. Endorses crack cocaine use today. Had some chest pain while waiting in the back. No chest pain now. No other complaints. History Past Medical History Narrative Medical Anxiety Bipolar disorder CAD, history of [place] Schizophrenia Seizure Tetanus Vaccination: < 5 Years Influenza Vaccination: Yes Social History Alcohol Use: Yes (daily) Tobacco Use: Yes Allergies-Medications (Allergen,Severity, Reaction): Coded Allergies: haloperidol (Verified Adverse Reaction, Intermediate, 01/03/18) Leukopenia/neutropenia Reported Meds & Prescriptions Reported Meds & Active Scripts Active Reported Risperdal (Risperidone) 0.25 Mg Tab 0.25 Mg PO DAILY Review of Systems Except as stated in HPI: all other systems reviewed are Neg Physical Exam Narrative GENERAL: 57-year-old man, sleeping in bed. Looks well. SKIN: Focused skin assessment warm/dry. HEAD: Atraumatic. Normocephalic. EYES: Pupils equal and round. No scleral icterus. No injection or drainage. ENT: No nasal bleeding or discharge. Mucous membranes pink and moist. NECK: Trachea midline. No JVD. CARDIOVASCULAR: Regular rate and rhythm. No murmur appreciated. RESPIRATORY: No accessory muscle use. Clear to auscultation. Breath sounds equal bilaterally. GASTROINTESTINAL: Abdomen soft, non-tender, nondistended. Hepatic and splenic margins not palpable. MUSCULOSKELETAL: No obvious deformities. No clubbing. No cyanosis. No edema. NEUROLOGICAL: Awake and alert. No obvious cranial nerve deficits. Motor grossly within normal limits. Normal speech. PSYCHIATRIC: Endorses depression. Does not appear psychotic. Speaks in full sentences without responding to internal stimuli. Mood reported as sad. Affect normal. Data Data Last Documented VS Vital Signs Date Time Temp Pulse Resp B/P (MAP) Pulse Ox O2 Delivery O2 Flow Rate FiO2 01/03/18 00:58 98.5 98 18 121/75 (90) 99 Orders Orders Complete Blood Count With Diff (01/03/18 02:44) Comprehensive Metabolic Panel (01/03/18 02:44) Psych Screen (01/03/18 02:44) Drug Screen, Random Urine (01/03/18 02:44) Alcohol (Ethanol) (01/03/18 02:44) Salicylates (Aspirin) (01/03/18 02:44) Tylenol (Acetaminophen) (01/03/18 02:44) Electrocardiogram (01/03/18 ) Troponin I (01/03/18 03:05) Labs Laboratory Tests Test 01/03/18 03:00 01/03/18 03:05 Urine Opiates Screen NEG Urine Barbiturates Screen NEG Urine Amphetamines Screen NEG Urine Benzodiazepines Screen NEG Urine Cocaine Screen POS Urine Cannabinoids Screen NEG White Blood Count 5.8 TH/MM3 Red Blood Count 4.54 MIL/MM3 Hemoglobin 14.0 GM/DL Hematocrit 41.3 % Mean Corpuscular Volume 90.8 FL Mean Corpuscular Hemoglobin 30.7 PG Mean Corpuscular Hemoglobin Concent 33.8 % Red Cell Distribution Width 13.6 % Platelet Count 197 TH/MM3 Mean Platelet Volume 7.5 FL Neutrophils (%) (Auto) 69.1 % Lymphocytes (%) (Auto) 24.4 % Monocytes (%) (Auto) 5.7 % Eosinophils (%) (Auto) 0.3 % Basophils (%) (Auto) 0.5 % Neutrophils # (Auto) 4.0 TH/MM3 Lymphocytes # (Auto) 1.4 TH/MM3 Monocytes # (Auto) 0.3 TH/MM3 Eosinophils # (Auto) 0.0 TH/MM3 Basophils # (Auto) 0.0 TH/MM3 CBC Comment DIFF FINAL Differential Comment Blood Urea Nitrogen 23 MG/DL Creatinine 1.59 MG/DL Random Glucose 75 MG/DL Total Protein 7.9 GM/DL Albumin 3.9 GM/DL Calcium Level 8.8 MG/DL Alkaline Phosphatase 61 U/L Aspartate Amino Transf (AST/SGOT) 75 U/L Alanine Aminotransferase (ALT/SGPT) 50 U/L Total Bilirubin 0.5 MG/DL Sodium Level 142 MEQ/L Potassium Level 4.7 MEQ/L Chloride Level 108 MEQ/L Carbon Dioxide Level 26.0 MEQ/L Anion Gap 8 MEQ/L Estimat Glomerular Filtration Rate 54 ML/MIN Troponin I LESS THAN 0.02 NG/ML Salicylates Level LESS THAN 1.7 MG/DL Acetaminophen Level LESS THAN 2.0 MCG/ML Ethyl Alcohol Level 6 MG/DL MDM Medical Decision Making Medical Screen Exam Complete: Yes Emergency Medical Condition: Yes Interpretation(s) My review of EKG: Sinus rhythm, normal axis, lateral ST changes and T-wave inversions in V5 and V6, compared to previous EKG from August 2017, lateral ST changes and T-wave inversions affected more leads than, but otherwise no significant change. Labs: CBC is unremarkable CMP unremarkable, BUN and creatinine a little bit elevated Troponin negative Drug screen is positive for cocaine Differential Diagnosis Malingering, chronic psychiatric disease, acute exacerbation of psychiatric disease, cocaine chest pain, other Narrative Course 57-year-old man, here for voluntary psychiatric evaluation, one brief episode of chest pain. Looks otherwise well. Will check labs including troponin, EKG, otherwise recommend psychiatric evaluation. FINAL: Medically clear for psychiatric evaluation. Diagnosis Primary Impression: Cocaine abuse Additional Impression: Drug-induced mood disorder Reji Stahl MD Jan 03, 2018 04:00
[2018-01-03 04:05] LABS: ACETAMINOPHEN LESS THAN 2.0 MCG/ML (10.0-30.0); ALKALINE PHOSPHATASE 61 U/L (45-117); TOTAL BILIRUBIN ADULT 0.5 MG/DL (0.2-1.0); TOTAL PROTEIN 7.9 GM/DL (6.4-8.2); TROPONIN I LESS THAN 0.02 NG/ML (0.02-0.05)
--- NOTE | 2018-01-03 08:23 | EKG ---
Date Performed: 01/03/2018 Time Performed: 03:29:25 PTAGE: 57 years EKG: Sinus rhythm POSSIBLE RIGHT VENTRICULAR CONDUCTION DELAY MODERATE T-WAVE ABNORMALITY ABNORMAL ECG PREVIOUS TRACING : 08/10/2017 08.25 Since the previous tracing, no significant change noted DOCTOR: Bruce Philip Interpretating Date/Time 01/03/2018 08:21:04
[2018-01-04] MEDS ORDERED: CYCL10TA PO (20:50)
[2018-01-04] MEDS ORDERED: IBUP-232 PO (20:50)
== END 2018-01-03 06:14 | disposition home or self-care (01) ==
LOC: NEDAMB 00:46
DX: F14.14 Cocaine abuse with cocaine-induced mood disorder (principal); R07.9 Chest pain, unspecified; F20.9 Schizophrenia, unspecified; F31.9 Bipolar disorder, unspecified; Z72.0 Tobacco use; Z79.899 Other long term (current) drug therapy
CPT/HCPCS: 80053; 80307; 84484; 85025; 93005

== ENCOUNTER 2018-01-04 18:27 | Emergency (ER) | payer MEDICAID, OTHER ==
[~2018-01-04] VITALS: Ht 180.3 cm; Wt 80.0 kg
[2018-01-04 18:49] VITALS: BP 120/84; PULSE 73; RESP 16; TEMP 98; O2SAT 96
[2018-01-04] MEDS ORDERED: ONDANSETRON HCL 4 MG/2 ML VIAL IV PUSH ONE (19:00)
[2018-01-04] MEDS ORDERED: SODIUM CHLORID 0.9% 500 ML INJ 500 ML IV ONE (19:00)
[2018-01-04] MEDS ORDERED: MORPHINE SULFATE 4 MG/ML INJ IV PUSH ONE (19:00)
--- NOTE | 2018-01-04 19:02 | PD ---
HPI Chief Complaint: Fall Time Seen by Provider: 18:49 Travel History International Travel<30 days: No Contact w/Intl Traveler<30days: No Traveled to known affect area: No History of Present Illness HPI The patient is a 57-year-old male who presents to the emergency department via EMS after a slip and fall while as [facility]. The patient was voluntary as [facility] for history of cocaine and alcohol abuse. Apparently the patient was walking on a linoleum floor per EMS earlier tonight when he slipped and fell, falling backwards. The patient thinks there was a loss of consciousness. He complains of a headache, neck pain, and back pain after the fall. He denies any numbness or tingling of the upper or lower extremities. The patient denies any chest pain, shortness of breath, nausea, vomiting, or abdominal pain. Symptoms are moderate, exacerbated after falling. There are no current alleviating factors. PFSH Past Medical History Hx Anticoagulant Therapy: No Arthritis: Yes Asthma: No Autoimmune Disease: No Bipolar Disorder: Yes Anxiety: Yes Depression: Yes Heart Rhythm Problems: No Cancer: No Cardiac Catheterization: Yes Cardiovascular Problems: Yes High Cholesterol: No Chemotherapy: No Chest Pain: Yes ([place] 2002) Congestive Heart Failure: No COPD: No Cerebrovascular Accident: No Diabetes: No Diminished Hearing: No Endocrine: No Gastrointestinal Disorders: Yes GERD: Yes Genitourinary: No Headaches: No Hiatal Hernia: No Heparin Induced Thrombocytopen: Yes Hypertension: Yes Immune Disorder: No Kidney Stones: No Musculoskeletal: Yes Neurologic: Yes Psychiatric: Yes Reproductive: No Respiratory: No Immunizations Current: Yes Migraines: No Radiation Therapy: No Renal Failure: No Schizophrenia: Yes Seizures: Yes Sickle Cell Disease: No Sleep Apnea: No Thyroid Disease: No Ulcer: No Tetanus Vaccination: < 5 Years Influenza Vaccination: Yes Past Surgical History Abdominal Surgery: Yes (2 HERINA SX) AICD: No Arteriovenous Shunt: No Cardiac Surgery: No Coronary Artery Bypass Graft: No Ear Surgery: No Endocrine Surgery: No Eye Surgery: No Genitourinary Surgery: No Gynecologic Surgery: No Insulin Pump: No Joint Replacement: No Oral Surgery: No Pacemaker: No Thoracic Surgery: No Social History Alcohol Use: Yes (QUIT 2 NIGHTS AGO) Tobacco Use: Yes (QUIT NIGHTS AGO) Substance Use: Yes (COCCAINE, ETOH AND MARIJUANA ABUSE SMA FOR DETOX) Allergies-Medications (Allergen,Severity, Reaction): Coded Allergies: haloperidol (Verified Adverse Reaction, Intermediate, 01/04/18) Leukopenia/neutropenia Reported Meds & Prescriptions Reported Meds & Active Scripts Active Reported Risperdal (Risperidone) 0.25 Mg Tab 0.25 Mg PO DAILY Review of Systems Except as stated in HPI: all other systems reviewed are Neg HENT: Positive: Headaches, Neck Pain Cardiovascular: No: Chest Pain or Discomfort Respiratory: No: Shortness of Breath Gastrointestinal: No: Nausea, Vomiting, Abdominal Pain Musculoskeletal: Positive: Pain Neurologic: No: Dizziness, Change in Mentation, Paresthesia, Sensory Disturbance Physical Exam Narrative GENERAL: Awake, alert, pleasant 37-year-old male who appears his stated age and is in no acute respiratory distress. Initially evaluated with cervical collar in place and on a backboard. SKIN: Focused skin assessment warm/dry. HEAD: Atraumatic. Normocephalic. EYES: Pupils equal and round. 3 mm bilateral and reactive. ENT: No nasal bleeding or discharge. Mucous membranes pink and moist. NECK: Trachea midline. No JVD. Cervical collar in place. CARDIOVASCULAR: Regular rate and rhythm. No murmur appreciated. RESPIRATORY: No accessory muscle use. Clear to auscultation. Breath sounds equal bilaterally. GASTROINTESTINAL: Abdomen soft, non-tender, nondistended. No rebound tenderness. Back: Tenderness over the paravertebral muscles in the lumbar and lower thoracic region. Minimal tenderness in the midline of the mid lumbar and lower thoracic region. No obvious step-off. MUSCULOSKELETAL: No obvious deformities. No clubbing. No cyanosis. No edema. Moves all 4 extremities. NEUROLOGICAL: Awake and alert. No obvious cranial nerve deficits. Motor grossly within normal limits. Normal speech. Nonfocal. Oriented 3. PSYCHIATRIC: Appropriate mood and affect; insight and judgment normal. Data Data Last Documented VS Vital Signs Date Time Temp Pulse Resp B/P (MAP) Pulse Ox O2 Delivery O2 Flow Rate FiO2 01/04/18 18:49 98.0 73 16 120/84 (96) [address] Brain W/O Iv Contrast(Rout) (01/04/18 ) Ct Cerv Spine W/O Contrast (01/04/18 ) Ct Lumb Spine W/O Contrast (01/04/18 ) Ct Thor Spine W/O Contrast (01/04/18 ) Morphine Inj (Morphine Inj) (01/04/18 19:00) Ondansetron Inj (Zofran Inj) (01/04/18 19:00) Sodium Chlorid 0.9% 500 Ml Inj (Ns 500 M (01/04/18 19:00) MDM Medical Decision Making Medical Screen Exam Complete: Yes Emergency Medical Condition: Yes Medical Record Reviewed: Yes Interpretation(s) Last Impressions Thoracic Spine CT 01/04/18 Signed Impressions: Service Date/Time: Thursday, January 04, 2018 19:28 - CONCLUSION: 1. Mild scoliosis. No acute bony abnormality. Rocco Gagnon MD Lumbar Spine CT 01/04/18 Signed Impressions: Service Date/Time: Thursday, January 04, 2018 19:28 - CONCLUSION: 1. No acute findings. Rocco Gagnon MD Head CT 01/04/18 Signed Impressions: Service Date/Time: Thursday, January 04, 2018 19:28 - CONCLUSION: Normal examination for a patient of this age. Rocco Gagnon MD Cervical Spine CT 01/04/18 Signed Impressions: Service Date/Time: Thursday, January 04, 2018 19:28 - CONCLUSION: 1. Moderate degenerative change. No acute fracture or spondylolisthesis. Rocco Gagnon MD Differential Diagnosis Differential diagnosis includes mechanical fall, closed head injury, intracranial hemorrhage, skull fracture, cervical fracture, thoracic fracture, lumbar fracture, musculoskeletal pain. Narrative Course The patient was logrolled off of the backboard. The patient was neurologically intact. IV was established and the patient was administered morphine, Zofran, and IV fluids. CT the brain, cervical spine, thoracic spine, and lumbar spine were ordered. Cervical collar was maintained until CT results were evaluated. CT of the brain, cervical spine, thoracic spine, and lumbar spine were unremarkable. No evidence of fracture or subluxation. The patient was reevaluated at 8:46 PM, his pain is significantly improved. Cervical collar was removed, he is able to flex, extend and rotate the neck. The patient is as [facility], will be placed on ibuprofen and Flexeril as needed. We will obtain transportation for the patient back to [facility]. Diagnosis Primary Impression: Fall Qualified Codes: W19.XXXA - Unspecified fall, initial encounter Additional Impressions: Closed head injury Qualified Codes: S09.90XA - Unspecified injury of head, initial encounter Neck pain Back pain Qualified Codes: M54.9 - Dorsalgia, unspecified Patient Instructions: General Instructions Additional Instructions: Please provide the patient a copy of his CT results at discharge. Transfer back to [facility]. Medications as directed. Rest and ice and/or heat as needed to the affected areas. Follow-up with your primary physician. Med/Other Pt SpecificInfo: Prescription(s) given Scripts Cyclobenzaprine (Flexeril) 10 Mg Tab 10 MG PO TID for Muscle Spasm for 5 Days, #15 TAB 0 Refills Prov: Malcom Graham MD 01/04/18 Ibuprofen (Ibuprofen) 600 Mg Tab 600 MG PO Q6H Y for Pain/Inflammation, #20 TAB 0 Refills Prov: Malcom Graham MD 01/04/18 Disposition: 70 TRANSFER TO OTHER FACILITY (Transfer back to [facility]) Condition: Stable Malcom Graham MD Jan 04, 2018 19:02
--- NOTE | 2018-01-04 19:59 | RADRPT ---
EXAM DATE/TIME: 01/04/2018 19:28 [facility] COMPARISON: No previous studies available for comparison. INDICATIONS : Trauma, fall. Cephalgia. RADIATION DOSE: 56.35 CTDIvol (mGy) MEDICAL HISTORY : Hypertension. Cardiovascular disease SURGICAL HISTORY : None. ENCOUNTER: Initial ACUITY: 1 day PAIN SCALE: 9/10 LOCATION: cranial TECHNIQUE: Multiple contiguous axial images were obtained of the head. Using automated exposure control and adj ustment of the mA and/or kV according to patient size, radiation dose was kept as low as reasonably a chievable to obtain optimal diagnostic quality images. DICOM format image data is available electro nically for review and comparison. FINDINGS: CEREBRUM: The ventricles are normal for age. No evidence of midline shift, mass lesion, hemorrhage or acute in farction. No extra-axial fluid collections are seen. POSTERIOR FOSSA: The cerebellum and brainstem are intact. The 4th ventricle is midline. The cerebellopontine angle i s unremarkable. EXTRACRANIAL: The visualized portion of the orbits is intact. SKULL: The calvaria is intact. No evidence of skull fracture. CONCLUSION: Normal examination for a patient of this age. Rocco Gagnon MD on January 04, 2018 at 19:56 Board Certified Radiologist. This report was verified electronically.
--- NOTE | 2018-01-04 20:19 | RADRPT ---
EXAM DATE/TIME: 01/04/2018 19:28 [facility] COMPARISON: CT CERVICAL SPINE W/O CONTRAST, June 28, 2016, 20:00. INDICATIONS : Trauma, fall. RADIATION DOSE: 21.17 CTDIvol (mGy) MEDICAL HISTORY : Hypertension. Cardiovascular disease SURGICAL HISTORY : None. ENCOUNTER: Initial ACUITY: 1 day PAIN SCALE: 7/10 LOCATION: neck TECHNIQUE: Volumetric scanning of the cervical spine was performed. Multiplanar reconstructions in the sagittal, coronal and oblique axial planes were performed. Using automated exposure control and adjustment o f the mA and/or kV according to patient size, radiation dose was kept as low as reasonably achievable to obtain optimal diagnostic quality images. DICOM format image data is available electronically f or review and comparison. FINDINGS: No acute fracture. Moderate degenerative change with mild AP canal stenosis between C3 and C7. No pre vertebral soft tissue swelling. CONCLUSION: 1. Moderate degenerative change. No acute fracture or spondylolisthesis. Rocco Gagnon MD on January 04, 2018 at 20:15 Board Certified Radiologist. This report was verified electronically.
--- NOTE | 2018-01-04 20:21 | RADRPT ---
EXAM DATE/TIME: 01/04/2018 19:28 [facility] COMPARISON: No previous studies available for comparison. INDICATIONS : Trauma, fall. RADIATION DOSE: 25.45 CTDIvol (mGy) ; Combined studies - Thoracic Spine/Lumbar Spine MEDICAL HISTORY : Cardiovascular disease. Hypertension. SURGICAL HISTORY : None. ENCOUNTER: Initial ACUITY: 1 day PAIN SCALE: 6/10 LOCATION: Paraspinal TECHNIQUE: Volumetric scanning of the thoracic spine was performed. Multiplanar reconstructions in the sagittal , coronal and oblique axial planes were performed. Using automated exposure control and adjustment o f the mA and/or kV according to patient size, radiation dose was kept as low as reasonably achievable to obtain optimal diagnostic quality images. DICOM format image data is available electronically f or review and comparison. FINDINGS: The vertebral bodies of the thoracic spine are in normal alignment without evidence of subluxation. Vertebral body height is maintained. No fractures are seen. T1-T2: Normal. T2-T3: The thecal sac has a normal diameter. No evidence of disc bulge or protrusion. T3-T4: The thecal sac has a normal diameter. No evidence of disc bulge or protrusion. T4-T5: The thecal sac has a normal diameter. No evidence of disc bulge or protrusion. T5-T6: The thecal sac has a normal diameter. No evidence of disc bulge or protrusion. T6-T7: The thecal sac has a normal diameter. No evidence of disc bulge or protrusion. T7-T8: The thecal sac has a normal diameter. No evidence of disc bulge or protrusion. T8-T9: The thecal sac has a normal diameter. No evidence of disc bulge or protrusion. T9-T10: The thecal sac has a normal diameter. No evidence of disc bulge or protrusion. T10-T11: The thecal sac has a normal diameter. No evidence of disc bulge or protrusion. T11-T12: The thecal sac has a normal diameter. No evidence of disc bulge or protrusion. T12-L1: The thecal sac has a normal diameter. No evidence of disc bulge or protrusion. CONCLUSION: 1. Mild scoliosis. No acute bony abnormality. Rocco Gagnon MD on January 04, 2018 at 20:17 Board Certified Radiologist. This report was verified electronically.
--- NOTE | 2018-01-04 20:23 | RADRPT ---
EXAM DATE/TIME: 01/04/2018 19:28 [facility] COMPARISON: No previous studies available for comparison. INDICATIONS : Trauma, fall. RADIATION DOSE: 25.45 CTDIvol (mGy) ; Combined studies - Thoracic Spine/Lumbar Spine MEDICAL HISTORY : Cardiovascular disease. Hypertension. SURGICAL HISTORY : None. ENCOUNTER: Initial ACUITY: 1 day PAIN SCALE: 7/10 LOCATION: Paraspinal TECHNIQUE: Volumetric scanning of the lumbar spine was performed. Multiplanar reconstructions in the sagittal, coronal and oblique axial planes were performed. Using automated exposure control and adjustment of the mA and/or kV according to patient size, radiation dose was kept as low as reasonably achievable t o obtain optimal diagnostic quality images. DICOM format image data is available electronically for review and comparison. FINDINGS: VERTEBRAE: Normal vertebral body height. ALIGNMENT: No evidence of subluxation. T12-L1: The thecal sac has a normal diameter. No evidence of disc bulge or protrusion. The neural foramina are patent bilaterally. L1-L2: The thecal sac has a normal diameter. No evidence of disc bulge or protrusion. The neural foramina are patent bilaterally. L2-L3: The thecal sac has a normal diameter. No evidence of disc bulge or protrusion. The neural foramina are patent bilaterally. L3-L4: The thecal sac has a normal diameter. No evidence of disc bulge or protrusion. The neural foramina are patent bilaterally. L4-L5: The thecal sac has a normal diameter. No evidence of disc bulge or protrusion. The neural foramina are patent bilaterally. L5-S1: The thecal sac has a normal diameter. No evidence of disc bulge or protrusion. The neural foramina are patent bilaterally. CONCLUSION: 1. No acute findings. Rocco Gagnon MD on January 04, 2018 at 20:19 Board Certified Radiologist. This report was verified electronically.
[2018-01-04] MEDS ORDERED: CYCL10TA PO (20:50)
[2018-01-04] MEDS ORDERED: IBUP-232 PO (20:50)
== END 2018-01-04 21:52 | disposition short-term general hospital (02) ==
LOC: NEPD 18:27
DX: S09.90XA Unspecified injury of head, initial encounter (principal); M54.2 Cervicalgia; M54.9 Dorsalgia, unspecified; F31.9 Bipolar disorder, unspecified; F41.9 Anxiety disorder, unspecified; I25.2 Old myocardial infarction; I10 Essential (primary) hypertension; F20.9 Schizophrenia, unspecified; K21.9 Gastro-esophageal reflux disease without esophagitis; W01.0XXA Fall on same level from slipping, tripping and stumbling without subsequent striking against object, initial encounter; Y92.099 Unspecified place in other non-institutional residence as the place of occurrence of the external cause
CPT/HCPCS: 70450; 72125; 72128; 72131; 96361; 96374; 96375; 99284; J2270; J2405; J7040

== ENCOUNTER 2018-04-11 06:19 | Inpatient (IN) ==
[2018-04-11 07:07] LABS: Baso % (Auto) 0.7 % (0.0-2.0); Eos % (Auto) 1.1 % (0.0-4.0); Hematocrit 38.7 % (39.0-51.0); Hemoglobin 13.1 gm/dL (13.0-17.0); Lymph # (Auto) 1.1 th/mm3 (1.0-4.8); Lymph % (Auto) 28.4 % (9.0-44.0); Mean Corpuscular HGB Conc 33.8 % (32.0-36.0); Mean Corpuscular Hemoglobin 29.7 pg (27.0-34.0); Mean Corpuscular Volume 87.9 fL (80.0-100.0); Mean Platelet Volume 5.9 fL (7.0-11.0); Mono # (Auto) 0.5 th/mm3 (0.0-0.9); Mono % (Auto) 12.5 % (0.0-8.0); Neut # (Auto) 2.3 th/mm3 (1.8-7.7); Neut % (Auto) 57.3 % (16.0-70.0); Platelet Count 412 th/mm3 (150-450); Red Cell Distribution Width 13.4 % (11.6-17.2)
[2018-04-11 07:20] LABS: Alanine Aminotransferase 28 U/L (12-78); Albumin 3.7 g/dL (3.4-5.0); Anion Gap 10 meq/L (5-15); Blood Urea Nitrogen 11 mg/dL (7-18); Calcium 8.9 mg/dL (8.5-10.1); Carbon Dioxide 25.1 meq/L (21.0-32.0); Chloride 108 meq/L (98-107); Glomerular Filtration Rate 68 mL/min (>89); Glucose,Random 77 mg/dL (74-106); Potassium 4.4 meq/L (3.5-5.1); Sodium 143 meq/L (136-145)
[2018-04-11 07:30] LABS: Alkaline Phosphatase 63 U/L (45-117); Aspartate Aminotransferase 24 U/L (15-37); Total Protein 7.5 g/dL (6.4-8.2)
--- NOTE | 2018-04-11 07:33 | ED ---
HPI General Chief Complaint: Psychiatric Symptoms Stated Complaint: Psych eval Time Seen by Provider: 04/11/18 07:07 History of Present Illness HPI Narrative: Patient comes emergency department requesting psychiatric evaluation. He states he feels that he needs to be in a mental hospital. Patient states that he has been dealing with bipolar since being a child does not feel the medication he is currently on is keeping it well controlled. Patient reports having thoughts of suicide. Patient reports plan will be to take drugs to kill himself. He states he does not want to do this, which is why he came to the emergency department. Patient denies anything making symptoms better or worse. Denies any fevers, chest pain, shortness of breath, nausea, vomiting, or headaches. Related Data Home Medications Medication Instructions Recorded Confirmed risperidone [Risperdal] 2 mg PO DAILY 04/11/18 04/11/18 Allergies Allergy/AdvReac Type Severity Reaction Status Date / Time haloperidol AdvReac Intermediate Restlessnes Verified 04/11/18 06:40 s Review of Systems Except as stated in HPI: all other systems reviewed are negative [facility] Medical History Medical History Bipolar 1 disorder (Acute) Surgical History Surgical History No history of previous surgery (Acute) Social History Social History Substance History: Past History Second Hand Smoke Exposure: No Smoking Status: Former smoker Tobacco Type: Cigarettes How Often Do You Have a Drink Containing Alcohol: 2 to 3 times a week Recent Travel in [facility] within the Last 8 Weeks: No Recent Out of Country Travel within the Last 8 Weeks: No Immunization History Tetanus Immunization: Unsure Hx Influenza Vaccine This Season: No Exam Narrative Exam Narrative: GENERAL: Well-developed, well nourished, in no acute distress, and non-ill appearing. SKIN: Focused skin assessment warm and dry. HEAD: Atraumatic. Normocephalic. EYES: Pupils equal and round. EOMI. No scleral icterus. No injection or drainage. ENT: No nasal bleeding or discharge. Mucous membranes pink and moist. NECK: Trachea midline. Supple. No nuclear rigidity. CARDIOVASCULAR: Regular rate and rhythm. No murmur appreciated. RESPIRATORY: No accessory muscle use. No respiratory distress. Clear to auscultation. Breath sounds equal bilaterally. MUSCULOSKELETAL: No obvious deformities. No clubbing. No cyanosis. No edema. Full range of motion. NEUROLOGICAL: Awake and alert. No obvious cranial nerve deficits. Motor grossly within normal limits. Normal speech. PSYCHIATRIC: Appropriate mood and affect; insight and judgment normal. Course Initial Documented Vital Signs Temperature 97.7 F 04/11/18 06:27 Pulse Rate 102 H 04/11/18 06:27 Respiratory Rate 16 04/11/18 06:27 Blood Pressure 139/91 H 04/11/18 06:27 Pulse Oximetry 99 04/11/18 06:27 Last Documented Vital Signs Temperature 98 F 04/11/18 06:42 Pulse Rate 89 04/11/18 06:42 Respiratory Rate 16 04/11/18 06:42 Blood Pressure 130/70 04/11/18 06:42 Pulse Oximetry 100 04/11/18 06:42 Medical Decision Making MDM Narrative Medical decision making narrative: Patient was seen and examined. Labs were obtained and reviewed with the exception of urine drug screen that has not been collected yet.. Patient medically cleared for further treatment and evaluation by psych. Final disposition per psych. Differential Diagnosis Differential Diagnosis: Homicidal, suicidal, bipolar, acute psychosis Lab Data Lab results reviewed: Yes I reviewed the patient's lab results. Result diagrams: 04/11/18 06:50 04/11/18 06:50 Lab Results 04/11/18 04/11/18 Range/Units 06:50 06:50 WBC 4.0 (4.0-11.0) th/mm3 RBC 4.40 L (4.50-5.90) mil/mm3 Hgb 13.1 (13.0-17.0) gm/dL Hct 38.7 L (39.0-51.0) % MCV 87.9 (80.0-100.0) fL MCH 29.7 (27.0-34.0) pg MCHC 33.8 (32.0-36.0) % RDW 13.4 (11.6-17.2) % Plt Count 412 (150-450) th/mm3 MPV 5.9 L (7.0-11.0) fL Neut % (Auto) 57.3 (16.0-70.0) % Lymph % (Auto) 28.4 (9.0-44.0) % [place] % (Auto) 12.5 H (0.0-8.0) % Eos % (Auto) 1.1 (0.0-4.0) % Baso % (Auto) 0.7 (0.0-2.0) % Neut # (Auto) 2.3 (1.8-7.7) th/mm3 Lymph # (Auto) 1.1 (1.0-4.8) th/mm3 [place] # (Auto) 0.5 (0.0-0.9) th/mm3 Eos # (Auto) 0.0 (0.0-0.4) th/mm3 Baso # (Auto) 0.0 (0.0-0.2) th/mm3 WBC Differential . Differential Comment Auto diff final Sodium 143 (136-145) meq/L Potassium 4.4 (3.5-5.1) meq/L Chloride 108 H (98-107) meq/L Carbon Dioxide 25.1 (21.0-32.0) meq/L Anion Gap 10 (5-15) meq/L BUN 11 (7-18) mg/dL Creatinine 1.30 (0.60-1.30) mg/dL Estimated GFR 68 L (>89) mL/min Random Glucose 77 (74-106) mg/dL Calcium 8.9 (8.5-10.1) mg/dL Total Bilirubin 0.3 (0.2-1.0) mg/dL AST 24 (15-37) U/L ALT 28 (12-78) U/L Alkaline Phosphatase 63 (45-117) U/L Total Protein 7.5 (6.4-8.2) g/dL Albumin 3.7 (3.4-5.0) g/dL TSH 1.310 (0.358-3.740) uIU/mL Serum Alcohol 14 H (0-5) mg/dL Discharge Plan Discharge Disposition Patient Disposition: 30 Still Patient Discharge Details Discharge Problem: Medical clearance for psychiatric admission Physicians Team ED Provider: Vidhi Tipton ED Midlevel Provider: Dashawn Ruiz Primary Care Provider: UNKNOWN, Rxs /Orders / Referrals /Forms Prescriptions: No Action risperidone [Risperdal] 1 mg Tablet 2 mg PO DAILY RF: 0 Status ED Status: Medically Cleared
[2018-04-11 07:37] LABS: Alcohol 14 mg/dL (0-5)
[2018-04-11 17:23] LABS: Amphetamine Screen,Urine Neg (Neg); Barbiturate Screen,Urine Neg (Neg); Cannabinoid Screen,Urine Pos (Neg); Cocaine Screen,Urine Pos (Neg)
[2018-04-11 17:24] LABS: Opiate Screen,Urine Neg (Neg)
--- NOTE | 2018-04-11 18:52 | ED ---
HPI - Psych - General Source: patient Mode of arrival: ambulatory Limitations: other (low fund of knowledge, poor historian ) - History of Present Illness MD complaint: other (homicidal ideations ) Duration: constant Relieving factors: none Exacerbating factors: none Associated psychiatric symptoms: homicidal ideation Associated symptoms: denies other symptoms Treatments prior to arrival: none If self harm: has plan (will not share plan ) - General Chief Complaint: Psychiatric Symptoms Stated Complaint: Psych eval Time Seen by Provider: 04/11/18 07:07 - History of Present Illness HPI Narrative: Patient is a 58-year-old, 2, no children, unemployed, - [place] male. He is a psychiatric history of bipolar. He has had previous admissions to the [facility]. He presents today stating that he feels like he wants to kill somebody. He states that he is currently living with his brother and that is working out well. He was followed at [facility] but he has not been taking his medications. He believes that he has been taking Risperdal 2 mg daily and Depakote nightly but cannot indicate the amount of Depakote. UDS negative. ETOH 14. Family history: Patient states that his father 4 years ago and she he drank a lot. Mother lives in town and houses many members of the family and has no mental illness. He has a brother who is bipolar. Education/Social/Substance: Patient graduated from the seventh grade. He cannot describe any type of employment. He states he smokes 2-3 cigarettes per day. He does drink beer daily. He states that he smokes marijuana when he has access to it. And has done cocaine in the past. Medical/Surgical: Patient has a history of hypertension. He states he has an established primary care physician in [place] but he cannot recall the physician's name. He states he takes no medication for his hypertension. He complains of left knee pain and feels that he needs surgery on his knee. He is also concerned because he has had increased urination. Chart reviewed and discussed with nursing staff. Patient found in room J104 in the emergency department. He presents with his head covered and will only expose part of his face. He is unkempt and disheveled He is alert to self but confused about place, date, and time. Insight and judgment is poor. Fund of knowledge is below average. Recent and remote memory is impaired. Motor and gait is normal. Patient states that he has been hearing voices telling them to kill somebody. Patient is at moderate risk for decompensation. Will place patient under a Guillen act for further assessment and treatment. Will admit patient to inpatient services. Diagnosis: Schizoaffective Disorder (Ellen Silva) - Related Data Home Medications Medication Instructions Recorded Confirmed risperidone [Risperdal] 2 mg PO DAILY 04/11/18 04/11/18 Allergies Allergy/AdvReac Type Severity Reaction Status Date / Time haloperidol AdvReac Intermediate Restlessnes Verified 04/11/18 06:40 s Review of Systems All other systems reviewed negative except as stated in HPI Genitourinary: Reports urinary urgency Musculoskeletal: Reports other (left knee pain ) PMFSH - History History Provided By: Patient - Medical History Medical History: Medical History (Last Reviewed 04/11/18 @ 07:32 by SAMMIE Osorio) Bipolar 1 disorder - Surgical History Surgical History: Surgical History (Last Reviewed 04/11/18 @ 07:32 by SAMMIE Osorio) No history of previous surgery - Tobacco History Second Hand Smoke Exposure: No Tobacco Use In Past 30 Days: Yes Smoking Status: Former smoker Tobacco Type: Cigarettes - Alcohol History How Often Do You Have a Drink Containing Alcohol: 2 to 3 times a week - Substance Use History Substance History: Past History - Travel History Recent Travel in the [facility] Within the Last 8 Weeks: No Recent Travel Out of the Country Within the Last 8 Weeks: No - Immunization History Tetanus Immunization: Unsure Hx Influenza Vaccine This Season: No Psychiatric History - Psychiatric History Patient has a long history of mental illness. He has been at the [facility] been an inpatient C. (Shira,Ellen) Physical Exam - General Limitations: no limitations General appearance: other (confused) - Head Head exam: atraumatic - Eye Eye exam: Present: normal appearance - ENT ENT exam: Present: normal exam - Neck Neck exam: Present: normal inspection Mental Status Examination Appearance: Disheveled Consciousness: Other (confused ) Orientation: Person Motor Activity: Normal gait Speech: Unremarkable Language: Adequate Fund of Knowledge: Poor Attention and Concentration: Easily distracted Memory: Impaired Mood: Sad Affect: Flat, Blunt Thought Process & Associations: Disorganized Thought Content: Thought blocking Hallucination Type: Auditory (states voices are telling him to kill people) Delusion Type: Paranoid Suicidal Ideation: No Suicidal Plan: No Suicidal Intention: No Homicidal Ideation: Yes Homicidal Plan: Yes (will not expand on plan) Homicidal Intention: Yes Insight: Poor Judgment: Poor Initial Documented Vital Signs Temperature 97.7 F 04/11/18 06:27 Pulse Rate 102 H 04/11/18 06:27 Respiratory Rate 16 04/11/18 06:27 Blood Pressure 139/91 H 04/11/18 06:27 Pulse Oximetry 99 04/11/18 06:27 Last Documented Vital Signs Temperature 97.3 F L 04/11/18 18:00 Pulse Rate 87 04/11/18 18:00 Respiratory Rate 20 04/11/18 18:00 Blood Pressure 123/72 04/11/18 18:00 Pulse Oximetry 98 04/11/18 18:00 MDM - Psych - Diagnosis (1) Schizoaffective disorder Status: Acute - Lab Data Result diagrams: 04/11/18 06:50 04/11/18 06:50 - MDM Narrative Medical decision making narrative: Patient is a 4-year-old male who presents the emergency department stating that he has heard voices in his head telling him to kill someone. He will not confirm a safety plan. He has a long history of bipolar and has been admitted in the past to the [facility]. He has not been med compliant. He has seen a history of [place] and states he is on Risperdal and Depakote. He has been currently living with his brother and was sent here because they are concerned about his safety and safety of others. Patient is at moderate risk for decompensation. Will admit this patient for further assessment and treatment. Will place this patient under a Guillen act. ( Ellen Silva) - Lab Data Lab Results 04/11/18 04/11/18 04/11/18 Range/Units 06:50 06:50 16:50 WBC 4.0 (4.0-11.0) th/mm3 RBC 4.40 L (4.50-5.90) mil/mm3 Hgb 13.1 (13.0-17.0) gm/dL Hct 38.7 L (39.0-51.0) % MCV 87.9 (80.0-100.0) fL MCH 29.7 (27.0-34.0) pg MCHC 33.8 (32.0-36.0) % RDW 13.4 (11.6-17.2) % Plt Count 412 (150-450) th/mm3 MPV 5.9 L (7.0-11.0) fL Neut % (Auto) 57.3 (16.0-70.0) % Lymph % (Auto) 28.4 (9.0-44.0) % [place] % (Auto) 12.5 H (0.0-8.0) % Eos % (Auto) 1.1 (0.0-4.0) % Baso % (Auto) 0.7 (0.0-2.0) % Neut # (Auto) 2.3 (1.8-7.7) th/mm3 Lymph # (Auto) 1.1 (1.0-4.8) th/mm3 [place] # (Auto) 0.5 (0.0-0.9) th/mm3 Eos # (Auto) 0.0 (0.0-0.4) th/mm3 Baso # (Auto) 0.0 (0.0-0.2) th/mm3 WBC Differential . Differential Comment Auto diff final Sodium 143 (136-145) meq/L Potassium 4.4 (3.5-5.1) meq/L Chloride 108 H (98-107) meq/L Carbon Dioxide 25.1 (21.0-32.0) meq/L Anion Gap 10 (5-15) meq/L BUN 11 (7-18) mg/dL Creatinine 1.30 (0.60-1.30) mg/dL Estimated GFR 68 L (>89) mL/min Random Glucose 77 (74-106) mg/dL Calcium 8.9 (8.5-10.1) mg/dL Total Bilirubin 0.3 (0.2-1.0) mg/dL AST 24 (15-37) U/L ALT 28 (12-78) U/L Alkaline Phosphatase 63 (45-117) U/L Total Protein 7.5 (6.4-8.2) g/dL Albumin 3.7 (3.4-5.0) g/dL TSH 1.310 (0.358-3.740) uIU/mL Urine Opiates Screen Neg (Neg) Ur Barbiturates Screen Neg (Neg) Ur Amphetamines Screen Neg (Neg) U Benzodiazepines Scrn Neg (Neg) Urine Cocaine Screen Pos (Neg) U Cannabinoids Screen Pos (Neg) Serum Alcohol 14 H (0-5) mg/dL
[2018-04-11] MEDS ORDERED: Aluminum/Magnesium/Simethacone Susp 30 ML UDC PO PRN (19:06)
[2018-04-12 11:46] LABS: Calcium 9.2 mg/dL (8.5-10.1); Potassium 4.9 meq/L (3.5-5.1)
[2018-04-12 11:48] LABS: Chol/HDL Ratio 2.71 Ratio
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
[2018-04-12] MEDS: Senna/Docusate Sodium 8.6/50 MG Tablet PO SCH ×2 (14:16→21:23)
[2018-04-12 18:06] LABS: Hemoglobin A1c 5.9 % (4.3-6.0)
[2018-04-12] MEDS: Divalproex 500 MG ER Tablet PO SCH (21:24)
--- NOTE | 2018-04-13 14:44 | P.CONIM ---
History of Present Illness Requesting Physician: Avila Walsh Reason for Consult: Neck rash Primary Care Provider: UNKNOWN Chief Complaint: neck rash History of Present Illness: This is a 4-year-old male with no comorbidities, admitted at the psych unit for adjustment disorder, we were consulted for neck rash. Per patient, he started having this neck rash about a month ago, started as painful, crusting and erythematous. He initially presented to his primary care doctor who prescribed him a medication that he took 3 times a day for about 1 week. Since then, his rash got better. I assume that the medication was valacyclovir. He was told that he had shingles. Presently, neck rash is almost resolved, but is now itchy. There is occasional pain when he scratches but otherwise has not been bothering him. He denies any chest pain, shortness of breath, nausea or vomiting. There is no rash anywhere else. He also has mild left knee pain from chronic osteoarthritis. Review of Systems All other pertinent systems were reviewed and are negative. [facility] - History History Provided By: Patient - Medical History Medical History: Medical History (Last Reviewed 04/11/18 @ 07:32 by SAMMIE Osorio) Bipolar 1 disorder - Surgical History Surgical History: Surgical History (Last Reviewed 04/11/18 @ 07:32 by SAMMIE Osorio) No history of previous surgery - Tobacco History Second Hand Smoke Exposure: Yes Tobacco Use In Past 30 Days: Yes Smoking Status: Current some day smoker Tobacco Type: Cigarettes - Alcohol History How Often Do You Have a Drink Containing Alcohol: 2 to 3 times a week - Substance Use History Substance History: Active Abuse - Substance Use Type Crack/Cocaine Status: Active Route Used: By Mouth Reason for Use: Feels Good, Get High, Increase Energy Level Comment: Patient states the use increases his hallucinations. He states he hates drugs. When asked why he still uses them patient states he can't quit without help. Patient also uses alcohol and canabis. - Travel History Recent Travel in the [place] Within the Last 8 Weeks: No Recent Travel Out of the Country Within the Last 8 Weeks: No - Immunization History Tetanus Immunization: Unsure Hx Influenza Vaccine This Season: No Medications and Allergies Active Medications: Active Medications Al Hydrox/Mg Hydrox/Simethicone (Mag-Al Plus Susp Liq) 30 ml PO Q6H PRN PRN Reason: DYSPEPSIA Al Hydroxide/Mg Hydroxide (Milk Of Ugo Munguia) 30 ml PO Q12H PRN PRN Reason: Mild Constipation Divalproex Sodium (Depakote Er) 1,000 mg PO HS [facility] Last Admin: 04/12/18 21:24 Dose: 1,000 mg Hydroxyzine HCl (Atarax) 50 mg PO Q6H PRN PRN Reason: ANXIETY Last Admin: 04/12/18 21:23 Dose: 50 mg Senna/Docusate Sodium (Emgan-Colace) 1 tab PO BID KALIA Last Admin: 04/12/18 21:23 Dose: 1 tab Allergies Allergy/AdvReac Type Severity Reaction Status Date / Time haloperidol AdvReac Intermediate Restlessnes Verified 04/11/18 06:40 s Home Medications Medication Instructions Recorded Confirmed Type risperidone [Risperdal] 2 mg PO DAILY 04/11/18 04/11/18 History Exam Vital signs: Vital Signs 04/12/18 16:56 04/13/18 05:40 Temperature 98.4 F 97.9 F Pulse Rate 87 102 H Respiratory Rate 17 18 Blood Pressure 123/71 117/59 L Pulse Oximetry 98 98 Narrative: Not in distress Pupils equal reactive to light Right lateral neck with dried up rash, distributed on the right side of the C4 dermatome. Nontender, pruritic Regular rate and rhythm Clear breath sounds No edema Evidence of left knee osteoarthritis Awake, alert, oriented to self and place. No focal deficits. Results - Labs CBC & Chem 7: 04/11/18 06:50 04/12/18 10:07 Labs: Laboratory Results - last 24 hr 04/12/18 10:07 Hemoglobin A1c 5.9 Assessment and Plan - Plan This is a 58-year-old male admitted to the psych unit for adjustment disorder, he has a history of bipolar disorder Bipolar disorder, adjustment disorder-management per psychiatry Herpes zoster-it appears that this is resolved, status post treatment for 1 week , likely with valacyclovir. Lesions have almost resolved. Now pruritic, Benadryl as needed, calamine topically twice a day. If with pain, may give Tylenol and tramadol. Upon discharge, he may follow-up with his primary care physician. Osteoarthritis of the left knee-Tylenol as needed. DVT prophylaxis: Low risk, ambulatory Thank you for this consultation. We will follow along with you.
--- NOTE | 2018-04-13 14:47 | P.PNPSY ---
Subjective Chief Complaint: Psych eval Remarks: Patient seen and examined with nurse. Chart reviewed. Case discussed with nursing staff. No behavioral issues noted overnight. Case discussed with counselor. On my examination today, the patient tells me "I need to get off them drugs." We discuss previous efforts to get patient assistance for his chem dep issues. Patient insists that this time he will follow through. He denies any HI today noting "I don't wanna spend the rest of my life in custodial." No psychotic symptoms today. Denies side effects from medications. No physical complaints. Dr. Porras in to see patient following my interview with patient. Vital Signs Temp Pulse Resp BP Pulse Ox 04/13/18 05:40 97.9 F 102 H 18 117/59 L 98 04/12/18 16:56 98.4 F 87 17 123/71 98 Laboratory Results - last 24 hr 04/12/18 10:07 Hemoglobin A1c 5.9 Labs reviewed. Review of Systems All other systems reviewed negative except as stated in HPI Mental Status Examination Appearance: Appropriate Consciousness: Alert Orientation: Person, Place (at least) Motor Activity: Normal gait, Other (No motor abnormalities noted. No signs of withdrawal noted.) Speech: Unremarkable Language: Adequate Fund of Knowledge: Adequate Attention and Concentration: Adequate Memory: Unremarkable Mood: Appropriate Affect: Appropriate, Euthymic Thought Process & Associations: Intact, Logical, Goal directed, Linear Thought Content: Appropriate Hallucination Type: None Delusion Type: None Suicidal Ideation: No Homicidal Ideation: No Insight: Fair Judgment: Impulsive Assessment and Plan - Assessment (1) Adjustment disorder, unspecified Code(s): F43.20 - Adjustment disorder, unspecified Status: Acute (2) Polysubstance abuse Code(s): F19.10 - Other psychoactive substance abuse, uncomplicated Status: Acute - Plan Plan: Continue current psychotropics as ordered. Plan for Depakote level after appropriate interval. Continue to monitor on the inpatient unit. Follow-up hospitalist recommendations. Continue other medications and care as ordered. Justification for Continued Inpatient Stay: Monitoring for impairment in safety, none noted Discharge Planning: Anticipate discharge by the end of the week Request Healthcare Surrogate/Guardian Advocate?: No
[2018-04-13] MEDS ORDERED: Acetaminophen 325 MG Tablet PO PRN (14:48)
[2018-04-13] MEDS: Divalproex 500 MG ER Tablet PO SCH (20:40)
[2018-04-13] MEDS: Senna/Docusate Sodium 8.6/50 MG Tablet PO SCH (20:41)
[2018-04-13] MEDS: Calamine/Pramoxine Lotion 180 ML Bottle TOPICAL SCH ×2 (20:42→23:44)
[2018-04-14] MEDS: Senna/Docusate Sodium 8.6/50 MG Tablet PO SCH (08:19)
[2018-04-14] MEDS: Calamine/Pramoxine Lotion 180 ML Bottle TOPICAL SCH (08:36)
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
== END 2018-04-14 13:05 | disposition home or self-care (01) ==
LOC: NEPD 06:19 → NEDA 19:10 → H270 22:00
PROVIDERS: ADMIT Psychiatry & Neurology Psychiatry; ATTEND Psychiatry & Neurology Psychiatry